=== PATIENT | female | born 2000 | race Caucasian/White ===

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

== ENCOUNTER → 2020-01-18 17:57 | Outpatient (CLI) | payer BC, SELFPAY ==
[2020-01-22 00:32] LABS: HPV Reflexed? NOT INDICATED
== END ==
PROVIDERS: Visit Provider Nurse Practitioner Women's Health
DX: Z12.4 Encounter for screening for malignant neoplasm of cervix (principal)
CPT/HCPCS: 88175; G0145

== ENCOUNTER → 2022-06-18 | Outpatient (CLI) | payer BC, SELFPAY ==
--- NOTE | 2022-06-18 16:55 | US_ITS ---
INDICATION: KIDNEY STONES EXAMINATION: US Kidney(s) complete (eg, kidneys and bladder) TECHNIQUE: Wall scale and color doppler images were obtained of the kidneys. COMPARISON: None. FINDINGS: RIGHT KIDNEY: Measures 10 cm in length.. There is no hydronephrosis. There is a 5 mm stone in the superior pole. No focal solid mass or perinephric collection is demonstrated. LEFT KIDNEY: Measures 10.5 cm in length.. There is no hydronephrosis. There is a 4 mm stone in the midpole No focal solid mass or perinephric collection is demonstrated. URINARY BLADDER: No acute abnormality. US/Kidney and Bladder IMPRESSION: Bilateral nonobstructing renal calculi as described above. No hydronephrosis. Electronically Signed: Fermin Ward MD at 23:40 EDT ,
== END | disposition home or self-care (01) ==
LOC: US 16:54
DX: N20.0 Calculus of kidney (principal)
CPT/HCPCS: 76770

== ENCOUNTER → 2022-09-06 | Outpatient (CLI) | payer BC, SELFPAY ==
[2022-09-06 11:01] LABS: Bacteria 0 SEEN /hpf (None Seen); Mucous, Urine 0 SEEN /hpf (<or=2+); Red Blood Cells-Urine 0 SEEN /hpf (0-5)
[2022-09-06 11:33] LABS: Color, Urine Yellow (Yellow); Glucose, Dipstick Normal (Normal); Ketone-Dipstick Negative (Negative); Leukocyte Esterase-Dipstick 25 /ul (Negative); Nitrite-Dipstick Negative (Negative); Occult Blood-Urine Negative /ul (Negative); Protein-Dipstick Negative (Negative); Urine Bilirubin Dipstick Negative (Negative); Urine Clarity Clear (Clear); Urine Urobilinogen Normal (Normal)
[2022-09-06 12:16] LABS: Squamous Epithelial Cells - UA 5-10 SEEN /hpf (5-10); White Blood Cells 0-5 SEEN /hpf (0-5)
== END | disposition home or self-care (01) ==
LOC: LABSPEC 10:49
PROVIDERS: Referring Provider Physician Assistant; Visit Provider Physician Assistant
DX: R10.9 Unspecified abdominal pain (principal)
CPT/HCPCS: 81001; 87086; 87088

== ENCOUNTER → 2023-01-10 | Outpatient (CLI) | payer BC, SELFPAY ==
[2023-01-10 18:31] LABS: Bacteria 0 SEEN /hpf (None Seen); Mucous, Urine 0 SEEN /hpf (<or=2+); Red Blood Cells-Urine 0 SEEN /hpf (0-5); White Blood Cells 0 SEEN /hpf (0-5)
[2023-01-10 18:40] LABS: Color, Urine Amber (Yellow); Glucose, Dipstick Normal (Normal); Ketone-Dipstick Negative (Negative); Leukocyte Esterase-Dipstick Negative /ul (Negative); Nitrite-Dipstick Positive (Negative); Occult Blood-Urine 10 /ul (Negative); Protein-Dipstick Negative (Negative); Specific Gravity, Urine 1.015 (1.002-1.030); Urine Clarity Clear (Clear); Urine Urobilinogen 8 mg/dl (Normal)
[2023-01-10 19:02] LABS: Urine Bilirubin Dipstick 3 mg/dL (Negative)
[2023-01-10 19:14] LABS: Squamous Epithelial Cells - UA 0-5 SEEN /hpf (5-10)
== END | disposition home or self-care (01) ==
PROVIDERS: Referring Provider Physician Assistant; Visit Provider Physician Assistant
DX: R35.0 Frequency of micturition (principal)
CPT/HCPCS: 81001; 87086

== ENCOUNTER 2023-01-12 05:46 | Emergency (ER) | payer BC, SELFPAY ==
[2023-01-12 05:47] VITALS: BP 123/91; PULSE 99; RESP 18; TEMP 36.4; O2SAT 99; BMI 38.0
--- NOTE | 2023-01-12 06:06 | EDS_ITS ---
HPI History of Present Illness Chief Complaint: General Illness Informant: patient Onset/Context/Timing Onset: Weeks (3) Context: Gradual Onset Timing: Continuous Quality: Sore, thick Location: Throat Worsened by: Nothing Relieved by: Tylenol Narrative Narrative: Patient presents with sore throat, eye drainage, and fevers that have been getting worse over the past 3 weeks. Patient states she was recently diagnosed with a urinary tract infection and is on Macrobid for this. Patient states her throat felt thick and was having difficulty swallowing this morning. Patient states it also feels sore. Patient states Tylenol has been helping with it. Patient states nothing makes it worse. Patient denies any difficulty swallowing. Patient admits to a mild cough but denies any sputum production. Patient denies any nausea or vomiting. PFSH PFS Medical History Hidradenitis Urinary tract infection Home Medications nitrofurantoin monohydrate/macrocrystals 100 mg capsule (Macrobid) 100 mg PO Q12H 5 days #10 caps 01/10/23 [Rx Last Taken Unknown] brompheniramine maleate 2 mg/5 mL oral elixir 5 mg PO DAILY 01/12/23 [History Last Taken Unknown] gentamicin 0.3 % eye drops 1 drp EACH EYE Q4H #5 mL 01/12/23 [Rx Last Taken Unknown] Allergy/AdvReac Type Severity Reaction Status Date / Time amoxicillin [From Augmentin] Allergy Other Verified 01/12/23 05:51 bee venom protein (honey bee) Allergy Hives Verified 01/12/23 05:51 clavulanic acid Allergy Other Verified 01/12/23 05:51 [From Augmentin] hydromorphone [From Dilaudid] AdvReac Other Verified 01/12/23 05:51 Surgical History History of tonsillectomy History of wisdom tooth extraction, class II edentulism Social History Smoking Status: Never smoker alcohol intake: never substance use type: does not use caffeine: Yes what type of physical activity do you participate in: walking seatbelt use: always do you feel safe at home: Yes 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 Constitutional Constitutional ED: Reports fever(s); Denies chills Eyes Eyes: Reports discharge from eye(s) and erythema; Denies blurry vision or change in vision ENT ENT ED: Reports discharge from eye(s) and sore throat; Denies rhinorrhea Cardiovascular Cardiovascular: Denies chest pain or palpitations Respiratory/Chest Respiratory/Chest: Reports cough; Denies dyspnea Gastrointestinal Gastrointestinal: Denies nausea or vomiting Genitourinary Genitourinary ED: Denies dysuria or hematuria Musculoskeletal Musculoskeletal: Denies back pain or neck pain Integumentary Denies abscess or rash Neurologic Neurologic: Denies headache(s) or weakness Allergic/Immunologic Allergic/Immunologic ED: Denies mouth swelling or urticaria EXAM Physical Exam Const Vital Signs: 01/12/23 05:47 01/12/23 05:53 Temperature 97.6 F L Temperature Source Oral Pulse Rate 99 Respiratory Rate 18 Respiratory Pattern Normal Blood Pressure 123/91 H Blood Pressure Mean 101 Pulse Ox 99 Oxygen Delivery Method Room Air Positive well nourished, well developed and obese General Appearance ED: well developed and NAD Nutritional Appearance: obese HEENT Reports moist mucous membranes HEENT Narrative: Oropharynx shows some mild erythema. There are no exudates noted. Eyes PERRL and EOMs intact bilaterally Eyes Narrative: Conjunctiva was injected bilaterally. There is mucousy, purulent drainage from the eyes bilaterally. There are no foreign bodies noted. Neck no lymphadenopathy, supple and no JVD Resp normal respiratory effort and clear to auscultation bilaterally Cardio regular rate, regular rhythm and no murmurs GI normal to inspection, nondistended, normoactive bowel sounds and non-tender Palpation: soft Extremity normal to inspection General Extremety ED: Negative for edema or tenderness General Extremity: Negative for edema Neuro oriented x3, CN's II-XII intact bilaterally and no sensory deficits noted Sensorium / Orientation: alert Motor Exam: strength 5/5 throughout Psych mental status grossly normal Skin no rashes or lesions noted MDM MDM MDM Narrative Medical decision making narrative: Differential diagnosis includes viral pharyngitis, conjunctivitis, viral upper respiratory infection, COVID infection, and influenza infection. COVID-19 rapid antigen will be obtained to assess for COVID infection. Influenza A and influenza B antigens will be obtained to assess for influenza infection. Rapid strep will be obtained to assess for strep pharyngitis. Lab Data Lab results narrative: COVID-19 rapid antigen was reviewed and was negative. Influenza A and influenza B antigens were reviewed and were negative. Rapid strep was reviewed and was negative. Treatment and Re-Evaluation :: Patient was advised of her findings. Patient was advised that this may be a viral upper respiratory infection. However, her conjunctivitis is purulent and mucousy in nature and could be bacterial etiology. Because of this, patient will be given a prescription for gentamicin ophthalmic drops. Patient was instructed to wash her hands anytime she touches her eye including putting eyedrops in. Patient was instructed to follow-up with her primary care physician in 5 to 7 days. Patient understood and was agreeable with the plan. All questions were answered. Discharge Plan Triage Chief Complaint: General Illness ED Provider: Maik Garcia Dx/Rx/DC Orders Clinical Impression: Conjunctivitis, Upper respiratory infection Instructions: ED Conjunctivitis, Bacterial Prescriptions: New gentamicin 0.3 % drops 1 drp EACH EYE Q4H Qty: 5 0RF No Action nitrofurantoin monohyd/m-cryst [Macrobid] 100 mg capsule 100 mg PO Q12H 5 Days Qty: 10 0RF Rx Instructions: must administer with a meal/food Bromphen 2 mg/5 mL Elixir 5 mg PO DAILY Primary Care Provider: Jocelyn Davis Referrals: Jocelyn Davis, [Primary Care Provider] - 5-7 Days Disposition Disposition: Home, Self Care
== END 2023-01-12 07:12 | disposition home or self-care (01) ==
PROVIDERS: Emergency Provider Emergency Medicine; Visit Provider Emergency Medicine
DX: J06.9 Acute upper respiratory infection, unspecified (principal); H10.9 Unspecified conjunctivitis
CPT/HCPCS: 87428; 87880; 99282

== ENCOUNTER 2023-01-23 20:22 | Emergency (ER) | payer BC, SELFPAY ==
[2023-01-23 20:23] VITALS: BP 131/79; PULSE 102; RESP 18; TEMP 36.4; O2SAT 97; BMI 37.6
[2023-01-23 20:56] LABS: Bacteria 0 SEEN /hpf (None Seen); Mucous, Urine 0 SEEN /hpf (<or=2+); Red Blood Cells-Urine 0 SEEN /hpf (0-5)
[2023-01-23 20:59] LABS: Color, Urine Yellow (Yellow); Glucose, Dipstick Normal (Normal); Ketone-Dipstick Negative (Negative); Leukocyte Esterase-Dipstick 25 /ul (Negative); Nitrite-Dipstick Positive (Negative); Occult Blood-Urine Negative /ul (Negative); Protein-Dipstick Negative (Negative); Specific Gravity, Urine 1.015 (1.002-1.030); Urine Bilirubin Dipstick Negative (Negative); Urine Clarity Sl. Cloudy (Clear); Urine Urobilinogen 4 mg/dl (Normal)
--- NOTE | 2023-01-23 21:06 | EX.ED.DYSGE1 ---
HPI History of Present Illness Chief Complaint: Flank Pain Informant: patient Onset/Context/Timing Onset: Days Context: Gradual Onset Narrative Narrative: Patient presents with urinary symptoms and increasing right flank pain. She was seen at [place] emergency room in the overnight hours last night. She states they were unable to get blood from her and she declined a CT scan. She was found have a urinary tract infection and was started on Keflex as well as Pyridium. She was also given Midvale for pain. She presents tonight due to increased right flank pain. Patient does have history of kidney stones but has never required surgical intervention. [facility] Medical History Asthma Depression GERD (gastroesophageal reflux disease) Hidradenitis Kidney stones Urinary tract infection Home Medications cephalexin 500 mg tablet 500 mg PO 4XD 01/23/23 [History Last Taken Unknown] fluticasone propionate 50 mcg/actuation nasal spray,suspension (Flonase Allergy Relief) 1 spray intranasal DAILY 01/23/23 [History Last Taken Unknown] hydrocodone-acetaminophen 5-325mg 5mg-325mg 1 tab PO Q6H PRN Pain 01/23/23 [History Last Taken Unknown] levocetirizine 5 mg tablet (Xyzal) 5 mg PO DAILY 01/23/23 [History Last Taken Unknown] ondansetron 4 mg disintegrating tablet 4 mg PO Q8H PRN PRN Nausea #10 tabs 01/23/23 [Rx Last Taken Unknown] phenazopyridine 200 mg tablet 200 mg PO TID 01/23/23 [History Last Taken Unknown] tamsulosin 0.4 mg capsule (Flomax) 0.4 mg PO DAILY #5 caps 01/23/23 [Rx Last Taken Unknown] Allergy/AdvReac Type Severity Reaction Status Date / Time amoxicillin [From Augmentin] Allergy Other Verified 01/23/23 20:26 bee venom protein (honey bee) Allergy Hives Verified 01/23/23 20:26 clavulanic acid Allergy Other Verified 01/23/23 20:26 [From Augmentin] hydromorphone [From Dilaudid] AdvReac Other Verified 01/23/23 20:26 Surgical History History of tonsillectomy History of wisdom tooth extraction, class II edentulism Social History Smoking Status: Never smoker alcohol intake: never substance use type: does not use caffeine: Yes what type of physical activity do you participate in: walking seatbelt use: always do you feel safe at home: Yes 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 ED Constitutional Constitutional ED: Denies chills or fever(s) Eyes Eyes: Denies change in vision or discharge from eye(s) ENT ENT ED: Denies discharge from eye(s), rhinorrhea or sore throat Cardiovascular Cardiovascular: Denies chest pain or palpitations Respiratory/Chest Respiratory/Chest: Denies cough or dyspnea Gastrointestinal Gastrointestinal: Reports abdominal pain; Denies diarrhea, nausea or vomiting Genitourinary Genitourinary ED: Reports dysuria and urinary frequency; Denies difficulty urinating Musculoskeletal Musculoskeletal: Reports back pain; Denies extremity pain Integumentary Denies Abrasions or rash Neurologic Neurologic: Denies headache(s) or weakness Psychiatric Psychiatric: Denies anxiety or depression Allergic/Immunologic Allergic/Immunologic ED: Denies lip swelling or urticaria EXAM Physical Exam Const Vital Signs: 01/23/23 20:23 01/23/23 20:32 Temperature 97.6 F L Temperature Source Temporal Pulse Rate 102 H Respiratory Rate 18 Respiratory Pattern Normal Blood Pressure 131/79 H Blood Pressure Mean 96 Pulse Ox 97 Oxygen Delivery Method Room Air Positive well nourished and well developed General Appearance ED: well developed HEENT Reports moist mucous membranes Eyes PERRL and EOMs intact bilaterally Neck no lymphadenopathy Chest Wall inspection of chest normal and palpation of chest normal Resp normal respiratory effort and clear to auscultation bilaterally Cardio regular rate and regular rhythm GI normal to inspection, nondistended, normoactive bowel sounds Extremity normal to inspection Neuro oriented x3 and no sensory deficits noted Motor Exam: strength 5/5 throughout Skin no rashes or lesions noted MDM MDM MDM Narrative Medical decision making narrative: Patient was initially given Toradol for pain along with IV fluids. Due to increased pain she was given morphine and Zofran. Labwork obtained to evaluate for leukocytosis, anemia, and electrolyte derangement. Urinalysis obtained to evaluate for infection/hematuria. Patient would like to avoid a CT scan if at all possible secondary to radiation and states that her urologist typically just as an abdominal x-ray. This was performed to evaluate for possible kidney stone. Lab Data Attestation: I reviewed the patient's lab results. Labs: Laboratory Results - last 24 hr 01/23/23 01/23/23 01/23/23 20:45 20:45 20:45 WBC 13.4 H RBC 4.79 Hgb 13.2 Hct 41.4 MCV 86.4 MCH 27.6 MCHC 31.9 L RDW Std Deviation 40.6 RDW Coeff of [place] 13.1 Plt Count 319 MPV 9.9 Immature Gran % (Auto) 0.600 Neut % (Auto) 64.2 Lymph % (Auto) 23.1 [place] % (Auto) 6.6 Eos % (Auto) 4.9 Baso % (Auto) 0.6 Absolute Neuts (auto) 8.6 H Absolute Lymphs (auto) 3.10 Nucleated RBC % 0 Sodium Potassium Chloride Carbon Dioxide Anion Gap BUN Creatinine Estim Creat Clear Calc Est GFR (MDRD) Af Amer Est GFR (MDRD) Non-Af BUN/Creatinine Ratio Glucose Calcium Serum , Qual NEGATIVE Urine Color Yellow Urine Clarity Sl. Cloudy Urine pH 6.0 Ur Specific [place] 1.015 Urine Protein Negative Urine Glucose (UA) Normal Urine Ketones Negative Urine Occult Blood Negative Urine Nitrite Positive H Urine Bilirubin Negative Urine Urobilinogen 4 H Ur Leukocyte Esterase 25 H Urine RBC 0 SEEN Urine WBC 0-5 SEEN Ur Squamous Epith Cells 0-5 SEEN Urine Bacteria 0 SEEN Urine Mucus 0 SEEN 01/23/23 20:45 WBC RBC Hgb Hct MCV MCH MCHC RDW Std Deviation RDW Coeff of [place] Plt Count MPV Immature Gran % (Auto) Neut % (Auto) Lymph % (Auto) [place] % (Auto) Eos % (Auto) Baso % (Auto) Absolute Neuts (auto) Absolute Lymphs (auto) Nucleated RBC % Sodium 140 Potassium 4.3 Chloride 108 H Carbon Dioxide 27.0 Anion Gap 5 BUN 14 Creatinine 1.09 H Estim Creat Clear Calc 99.13 Est GFR (MDRD) Af Amer 79 Est GFR (MDRD) Non-Af 66 BUN/Creatinine Ratio 12.8 Glucose 97 Calcium 8.9 Serum , Qual Urine Color Urine Clarity Urine pH Ur Specific [place] Urine Protein Urine Glucose (UA) Urine Ketones Urine Occult Blood Urine Nitrite Urine Bilirubin Urine Urobilinogen Ur Leukocyte Esterase Urine RBC Urine WBC Ur Squamous Epith Cells Urine Bacteria Urine Mucus Radiography Diagnostic Testing: Clinical Impression(s) from Imaging Studies KUB X-Ray 01/23/23 21:20 IMPRESSION: 3 mm calcification over the rightward pelvis may represent a distal ureteral calculus. Bilateral renal calculi. Electronically Signed: Harry Montalvo MD at 21:47 EDT , Treatment and Re-Evaluation :: CBC reveals a white count of 13.4 with normal differential. Chemistry studies unremarkable with a creatinine 1.09. test is negative. Urinalysis does reveal positive nitrites however 0 bacteria are noted with 0-5 white cells. Abdominal x-ray per my interpretation reveals increased stool on the right. It appears that there are at least 2 small kidney stones noted in the left kidney. Radiology interpretation is reviewed. They do see a 3 mm calcification in the right red pelvis which may represent a distal right ureteral calculus. On repeat evaluation patient resting more comfortably. Test results are discussed with her. She will continue the antibiotics that she was started on yesterday. She already has Midvale at home for pain. She will take ibuprofen 600 mg 3 times a day. I will add Zofran and Flomax. She has an appointment to see her urologist in [facility]. Return instructions given. Discharge Plan Triage Chief Complaint: Flank Pain ED Provider: Bonnie uL Dx/Rx/DC Orders Clinical Impression: Kidney stone Instructions: ED Kidney Stone w/ Colic Prescriptions: New ondansetron 4 mg tablet,disintegrating 4 mg PO Q8H PRN PRN (Reason: Nausea) Qty: 10 0RF tamsulosin [Flomax] 0.4 mg capsule 0.4 mg PO DAILY Qty: 5 0RF No Action hydrocodone-acetaminophen [[place]] 5-325 mg Tablet 1 tab PO Q6H PRN (Reason: Pain) phenazopyridine 200 mg Tablet 200 mg PO TID cephalexin 500 mg Tablet 500 mg PO 4XD fluticasone propionate [Flonase Allergy Relief] 50 mcg/actuation [place],Suspension 1 spray INTRANASAL DAILY Rx Instructions: administer into each nostril levocetirizine [Xyzal] 5 mg Tablet 5 mg PO DAILY Stand Alone Forms: ED Work / School Excuse Primary Care Provider: Jocelyn Davis Referrals: Jocelyn Davis, [Primary Care Provider] - Activity Restrictions/Additional Instructions: Follow-up with your urologist as scheduled. Disposition Disposition: Home, Self Care
[2023-01-23] MEDS: Ketorolac 30 MG/ML Syringe IV (21:07)
[2023-01-23 21:08] LABS: Internal QC Validated? YES +Cl - CLEAR BKGD
[2023-01-23] MEDS: 0.9% Normal Saline 1,000 ML 150 ML IV (21:08)
[2023-01-23 21:09] LABS: Pregnancy, Serum, hCG Quali. NEGATIVE Negative
[2023-01-23 21:13] LABS: Absolute Neutrophil Count 8.6 X10^3/uL (2.0-7.7); Basophil# 0.08 X10^3/uL; Basophil% 0.6 % (0-1); Eosinophil# 0.66 X10^3/uL; Eosinophils% 4.9 % (0-5); Hematocrit 41.4 % (37-47); Hemoglobin 13.2 g/dL (12.0-15.0); Lymphocyte % 23.1 % (19-41); Mean Corp Hgb Conc 31.9 g/dL (32-36); Mean Corpuscular Hgb 27.6 pg (27.0-32.0); Mean Corpuscular Volume 86.4 fL (81-99); Mean Platelet Vol. 9.9 fl (6.2-12.0); Monocyte# 0.89 X10^3/uL; Monocyte% 6.6 % (0-10); NRBC Flagged by Analyzer 0 % (0-5); Neutrophil # 8.63 X10^3/uL (2.7-7.7); Neutrophil % 64.2 % (47-70); Platelet Count 319 K/mm3 (150-450); RBC Distribution Width CV 13.1 % (11.6-14.6); RBC Distribution Width SD 40.6 fl (35.1-43.9); Red Blood Count 4.79 M/mm3 (4.2-5.4); White Blood Count 13.4 K/mm3 (4.4-11.0)
[2023-01-23 21:18] LABS: Squamous Epithelial Cells - UA 0-5 SEEN /hpf (5-10); White Blood Cells 0-5 SEEN /hpf (0-5)
--- NOTE | 2023-01-23 21:20 | RAD_ITS ---
INDICATION: right flank pain EXAMINATION/TECHNIQUE: X-RAY - XR Abdomen 1 View COMPARISON: 06/18/2022 ultrasound FINDINGS: BOWEL GAS PATTERN: Non-obstructive. No bowel or stomach distention. FREE AIR: Not assessed on a single supine view. ORGANOMEGALY: Not seen. CALCIFICATIONS: Several calcifications project over the right kidney. A 3 mm calcification projects over the rightward pelvis. 2 small calcifications project over the expected location of the left kidney, the largest of which measures 3 mm LOWER CHEST: No acute abnormal finding. BONES AND SOFT TISSUES: No acute abnormal finding. RAD/Abdomen Single View IMPRESSION: 3 mm calcification over the rightward pelvis may represent a distal ureteral calculus. Bilateral renal calculi. Electronically Signed: Harry Montalvo MD at 21:47 EDT ,
[2023-01-23 21:22] LABS: Anion Gap 5 (5-15); BUN 14 mg/dL (7-18); BUN/Creat Ratio 12.8 RATIO (10-20); Calcium,Total 8.9 mg/dL (8.5-10.1); Chloride 108 mmol/L (98-107); Creatinine, Serum 1.09 mg/dL (0.55-1.02); EST Glomerular Filtration Rate 66 mL/min (>60); Est Glom Filt Rate - Afr Amer 79 mL/min (>60); Estimated Creatinine Clearance 99.13 ml/min; Glucose 97 mg/dL (74-106); Potassium 4.3 mmol/L (3.5-5.1); Sodium Level 140 mmol/L (136-145)
[2023-01-23] MEDS: Ondansetron 4 MG/2 ML Vial IV (21:40)
[2023-01-23] MEDS: Morphine 4 MG/ML Syringe IV (21:40)
[2023-01-23 23:03] VITALS: BP 128/70; PULSE 72; RESP 16; O2SAT 98
== END 2023-01-23 23:05 | disposition home or self-care (01) ==
PROVIDERS: Emergency Provider Emergency Medicine; Visit Provider Emergency Medicine
DX: N20.0 Calculus of kidney (principal); J45.909 Unspecified asthma, uncomplicated; Z79.52 Long term (current) use of systemic steroids
CPT/HCPCS: 74018; 80048; 81001; 84703; 85025; 96361; 96374; 96375; 99284; J7030; J2405

== ENCOUNTER → 2023-04-11 | Outpatient (CLI) | payer BC, SELFPAY ==
[2023-04-19 10:05] LABS: HPV Reflexed? NOT INDICATED
== END | disposition home or self-care (01) ==
LOC: LABSPEC 16:24
PROVIDERS: Nurse Practitioner Women's Health; Referring Provider Obstetrics & Gynecology; Visit Provider Obstetrics & Gynecology
DX: Z12.4 Encounter for screening for malignant neoplasm of cervix (principal); N89.8 Other specified noninflammatory disorders of vagina
CPT/HCPCS: 87070; 87205; 88175; G0145

== ENCOUNTER 2023-05-14 12:10 | Emergency (ER) | payer BC, SELFPAY ==
[2023-05-14 12:11] VITALS: BP 126/90; PULSE 83; RESP 14; TEMP 36.2; O2SAT 100; BMI 35.6
--- NOTE | 2023-05-14 12:32 | EDS_ITS ---
HPI HPI - GI History of Present Illness Chief Complaint: Abd Pain Detail of Chief Complaint: Pain in abdomen Informant: patient, parent, spouse/S.O. and family Abdominal Pain/Flank Pain Current Severity: 04/11 Narrative Narrative: Patient presents with lower abdominal pain that started around 9:30 AM. Patient states the pain came on gradually. She started her menstrual period yesterday and does typically experience significant cramping with that. Patient took Advil but not having much relief. She describes pain mostly on her left lower abdomen but does have some discomfort across her back and some mild discomfort in the right side of her abdomen. She does have history of kidney stones. Patient has history of UTIs. Patient does not think this is a kidney stone as it does not feel like that. She had nausea but no vomiting. States that she tries to avoid CAT scans because she has had multiple CTs in the past because of her kidney stones. Her last CT was about a year and a half ago. In the past they have done ultrasounds and plain x-rays to evaluate for kidney stone. Prior similar symptoms: Yes PFSH PFSH Medical History Asthma Depression GERD (gastroesophageal reflux disease) Hidradenitis Kidney stones Urinary tract infection Home Medications levocetirizine 5 mg tablet (Xyzal) 5 mg PO DAILY 01/23/23 [History Last Taken Unknown] Allergy/AdvReac Type Severity Reaction Status Date / Time amoxicillin [From Augmentin] Allergy Other Verified 05/14/23 12:13 bee venom protein (honey bee) Allergy Hives Verified 05/14/23 12:13 clavulanic acid Allergy Other Verified 05/14/23 12:13 [From Augmentin] hydromorphone [From Dilaudid] AdvReac Other Verified 05/14/23 12:13 Family History no significant family his Surgical History History of tonsillectomy History of wisdom tooth extraction, class II edentulism Social History household members: spouse Smoking Status: Never smoker alcohol intake: never substance use type: does not use caffeine: Yes what type of physical activity do you participate in: walking seatbelt use: always do you feel safe at home: Yes additional social history: [employer] at [employer] [facility] ROS ROS ED Review of Systems ROS Unobtainable: other Constitutional Constitutional ED: Reports lethargy; Denies chills, fever(s), sweats or weight loss Eyes Eyes: Denies blurry vision, change in vision or diplopia ENT ENT ED: Denies rhinorrhea or sore throat Cardiovascular Cardiovascular: Denies chest pain, orthopnea or racing heartbeat Respiratory/Chest Respiratory/Chest: Denies cough, dyspnea, dyspnea on exertion, orthopnea or sputum Gastrointestinal Gastrointestinal: Reports abdominal pain and nausea; Denies diarrhea or vomiting Genitourinary Genitourinary ED: Denies dysuria, hematuria or urinary frequency Musculoskeletal Musculoskeletal: Reports back pain; Denies arthralgias, myalgias or neck pain Integumentary Denies abscess, Abrasions or rash Neurologic Neurologic: Denies headache(s) or weakness Psychiatric Psychiatric: Denies anxiety, depression or suicidal thoughts Endocrine Endocrinology: Denies polydipsia, polyphagia or polyuria Hematologic/Lymphatic Hematologic/Lymphatic: Denies easy bleeding, easy bruising or lymphadenopathy Allergic/Immunologic Allergic/Immunologic ED: Denies mouth swelling, tongue swelling or urticaria EXAM Physical Exam Const Vital Signs: 05/14/23 12:11 05/14/23 14:08 Temperature 97.1 F L Temperature Source Temporal Pulse Rate 83 Respiratory Rate 14 16 Blood Pressure 126/90 H Blood Pressure Mean 102 Pulse Ox 100 Oxygen Delivery Method Room Air Positive well nourished and well developed General Appearance ED: well developed and NAD HEENT Reports TM's clear and moist mucous membranes normocephalic and atraumatic; Negative for trauma or tenderness Tympanic Membrane ED: Yes TM's clear Eyes PERRL and EOMs intact bilaterally General Eye ED: Negative for pale conjunctiva or scleral icterus Neck no lymphadenopathy, supple and no JVD General: Negative for tenderness Chest Wall inspection of chest normal and palpation of chest normal Chest: Negative for tenderness Resp normal respiratory effort and clear to auscultation bilaterally Effort and Inspection: Negative for respiratory distress or pain with movement Auscultation: Negative for rhonchi, wheezes or diminished lung sounds Cardio regular rate, regular rhythm, S1 normal heart sound, S2 normal heart sound and no murmurs Cardio Narrative: Significant tenderness on exam. No rebound, rigidity, or peritoneal signs. No mass palpated. No CVA tenderness. Peripheral Pulses: pulses 2+ throughout GI normal to inspection, nondistended, normoactive bowel sounds, soft to palpation, non-tender, non-distended and no masses Back/Spine no CVA tenderness and no thoracic nor lumbar tenderness Extremity normal to inspection General Extremety ED: Negative for edema General Extremity: Negative for edema Neuro oriented x3, CN's II-XII intact bilaterally, no sensory deficits noted and gait normal Sensorium / Orientation: awake, alert, oriented to person, oriented to place and oriented to time Motor Exam: strength 5/5 throughout and strength abnormal Psych mental status grossly normal Skin no rashes or lesions noted and no wounds MDM MDM MDM Narrative Medical decision making narrative: Ruperttz with abdominal pain that she believes is related to her menstrual period that started yesterday. Patient also with prior history of kidney stones but tells me this feels different. Patient took Advil at home but was not get much relief so she comes in for evaluation. She does not think she is . She typically does have painful menstrual periods. IV line established on arrival. Patient was medicated with Toradol and she had good pain relief with that. CBC with differential obtained showed white count of 9.8 with hemoglobin of 13.4 and platelet count of 278. Chemistries unremarkable. Lactate normal at 1.8 and LFTs normal. hCG was negative. Urinalysis showed blood but no evidence of infection and she is on her menstrual period. Currently pain mostly resolved. She looks well. I do not feel any imaging is indicated. Patient comfortable with plan to follow-up with primary care physician and her [employer]. Lab Data Attestation: I reviewed the patient's lab results. Labs: Laboratory Results - last 24 hr 05/14/23 05/14/23 12:55 13:03 WBC 9.8 RBC 4.83 Hgb 13.4 Hct 42.2 MCV 87.4 MCH 27.7 MCHC 31.8 L RDW Std Deviation 42.2 RDW Coeff of [place] 13.3 Plt Count 278 MPV 10.1 Immature Gran % (Auto) 0.400 Neut % (Auto) 69.9 Lymph % (Auto) 18.7 L [place] % (Auto) 6.5 Eos % (Auto) 4.0 Baso % (Auto) 0.5 Absolute Neuts (auto) 6.9 Absolute Lymphs (auto) 1.83 Nucleated RBC % 0 Sodium 140 Potassium 4.0 Chloride 110 H Carbon Dioxide 26.0 Anion Gap 4 L BUN 15 Creatinine 0.92 Estim Creat Clear Calc 111.41 Est GFR (MDRD) Af Amer 97 Est GFR (MDRD) Non-Af 80 BUN/Creatinine Ratio 16.4 Glucose 113 H Lactic Acid 1.8 Calcium 9.0 Total Bilirubin 0.30 AST 13 L ALT 23 Alkaline Phosphatase 99 Total Protein 7.5 Albumin 3.5 Globulin 4.0 Albumin/Globulin Ratio 0.9 Serum , Qual NEGATIVE Urine Color GUS Urine Clarity Sl. Cloudy Urine pH 6.0 Ur Specific [place] 1.020 Urine Protein 100 H Urine Glucose (UA) Normal Urine Ketones Negative Urine Occult Blood 250 H Urine Nitrite Negative Urine Bilirubin Negative Urine Urobilinogen Normal Ur Leukocyte Esterase 100 H Urine RBC > 100 SEEN Urine WBC 0 SEEN Ur Squamous Epith Cells 0-5 SEEN Urine Bacteria 0 SEEN Urine Mucus 0 SEEN Discharge Plan Triage Chief Complaint: Abd Pain ED Provider: Jose De Jesus Ramsey Dx/Rx/DC Orders Clinical Impression: Dysmenorrhea Instructions: ED Abdominal Pain Unkn Cause Fem, ED MENSTRUAL CRAMPING Prescriptions: No Action levocetirizine [Xyzal] 5 mg Tablet 5 mg PO DAILY Primary Care Provider: Jocelyn Davis Referrals: Jocelyn Davis DO [Primary Care Provider] - 3-5 Days Mariama Renae MD [Med Staff - Active Staff] - 3-5 Days Disposition Disposition: Home, Self Care Discharge Date/Time: 05/14/23 14:09
[2023-05-14] MEDS: Ketorolac 30 MG/ML Syringe IV (13:00)
[2023-05-14] MEDS: 0.9% Normal Saline (1000mL) 1,000 ML 125 ML IV (13:01)
[2023-05-14 13:07] LABS: Absolute Lymphocyte Count 1.83 X10^3/uL (0.83-4.51); Absolute Neutrophil Count 6.9 X10^3/uL (2.0-7.7); Basophil# 0.05 X10^3/uL; Basophil% 0.5 % (0-1); Eosinophil# 0.39 X10^3/uL; Hematocrit 42.2 % (37-47); Hemoglobin 13.4 g/dL (12.0-15.0); Lymphocyte # 1.83 X10^3/ul (0.83-4.51); Lymphocyte % 18.7 % (19-41); Mean Corp Hgb Conc 31.8 g/dL (32-36); Mean Corpuscular Hgb 27.7 pg (27.0-32.0); Mean Corpuscular Volume 87.4 fL (81-99); Mean Platelet Vol. 10.1 fl (6.2-12.0); Monocyte# 0.64 X10^3/uL; Monocyte% 6.5 % (0-10); NRBC Flagged by Analyzer 0 % (0-5); Neutrophil # 6.86 X10^3/uL (2.7-7.7); Neutrophil % 69.9 % (47-70); Platelet Count 278 K/mm3 (150-450); RBC Distribution Width CV 13.3 % (11.6-14.6); RBC Distribution Width SD 42.2 fl (35.1-43.9); Red Blood Count 4.83 M/mm3 (4.2-5.4); White Blood Count 9.8 K/mm3 (4.4-11.0)
[2023-05-14 13:07] LABS: Bacteria 0 SEEN /hpf (None Seen); Mucous, Urine 0 SEEN /hpf (<or=2+); White Blood Cells 0 SEEN /hpf (0-5)
[2023-05-14 13:11] LABS: Glucose, Dipstick Normal (Normal); Ketone-Dipstick Negative (Negative); Leukocyte Esterase-Dipstick 100 /ul (Negative); Nitrite-Dipstick Negative (Negative); Occult Blood-Urine 250 /ul (Negative); Protein-Dipstick 100 mg/dl (Negative); Urine Bilirubin Dipstick Negative (Negative); Urine Clarity Sl. Cloudy (Clear); Urine Urobilinogen Normal (Normal)
[2023-05-14 13:14] LABS: Internal QC Validated? YES +Cl - CLEAR BKGD; Pregnancy, Serum, hCG Quali. NEGATIVE Negative
[2023-05-14 13:19] LABS: Color, Urine AMBER (Yellow); Red Blood Cells-Urine > 100 SEEN /hpf (0-5)
[2023-05-14 13:20] LABS: Squamous Epithelial Cells - UA 0-5 SEEN /hpf (5-10)
[2023-05-14 13:24] LABS: ALB/GLOB Ratio 0.9 RATIO (0.9-2.4); AST(SGOT) 13 U/L (15-37); Alanine Aminotransfer ALT/SGPT 23 U/L (13-56); Albumin, Serum 3.5 g/dL (3.2-5.0); Alkaline Phosphatase 99 U/L (45-117); Anion Gap 4 (5-15); BUN 15 mg/dL (7-18); BUN/Creat Ratio 16.4 RATIO (10-20); Chloride 110 mmol/L (98-107); Creatinine, Serum 0.92 mg/dL (0.55-1.02); EST Glomerular Filtration Rate 80 mL/min (>60); Est Glom Filt Rate - Afr Amer 97 mL/min (>60); Estimated Creatinine Clearance 111.41 ml/min; Glucose 113 mg/dL (74-106); Protein, Total 7.5 g/dL (6.4-8.2); Sodium Level 140 mmol/L (136-145)
[2023-05-14 13:32] LABS: Lactic Acid 1.8 mmol/L (0.4-1.9)
[2023-05-14 14:08] VITALS: RESP 16
== END 2023-05-14 14:09 | disposition home or self-care (01) ==
PROVIDERS: Emergency Provider Emergency Medicine; Visit Provider Emergency Medicine
DX: N94.6 Dysmenorrhea, unspecified (principal)
CPT/HCPCS: 80053; 81001; 83605; 84703; 85025; 96361; 96374; 99284

== ENCOUNTER → 2023-08-30 | Outpatient (CLI) | payer BC, SELFPAY ==
--- NOTE | 2023-08-30 16:36 | US_ITS ---
STUDY: ULTRASOUND TRANSVAGINAL CLINICAL: Female, 23 years old. dysmenorrhea TECHNIQUE: Transvaginal COMPARISON: None. FINDINGS: Normal uterine size measuring 7.5 x 3.7 x 2.6 cm in maximal craniocaudal dimension. Round hypoechoic mass in the anterior uterine body measures 8 mm on image 82 of series #1-2. Normal endometrial thickness measuring 6 mm. There are no endometrial masses, and there is no fluid in the endometrial cavity. There are nabothian cysts. Normal right ovary, measuring 2.8 x 2.1 x 2.2 cm. There are multiple follicles without a dominant cyst. Normal left ovary, measuring 2.8 x 2.1 x 2.2 cm. There are multiple follicles without a dominant cyst. There is no free fluid in the pelvis. US/Transvaginal Non- IMPRESSION: 1. Small (subcentimeter) subserosal anterior uterine fibroid. 2. No endometrial masses. Electronically Signed: Alvarez Ford MD (Brooks) at 20:10 EST ,
--- OUTSIDE RECORDS SUMMARY | 2023-08-30 20:39 | XMS RPT_ITS | CCD ---
Author Name Unknown Address [address] [place] [address] Organization [facility] Care Team Providers Care Nurse Quality Name Role Phone VALERIE VAIL Attending Unavailable IMCA Referring Unavailable IMCA Primary Care Unavailable IMJUAN Primary Care Unavailable RYLIE REGAN Attending Unavailable JIAN MCFARLAND, DR NAIK Primary Care Physician [phone] Gumaro Villar DO Primary Care Provider DR GUMARO VILLAR DO Primary Care Physician [phone] Gumaro Villar DO Primary Care Provider BARBY GUERIN Attending Unavailable GUMARO VILLAR Primary Care Unavailable Gumaro Villar DO Primary Care Provider [phone] Tank Escobar MD Unavailable Gumaro Villar DO Primary Care Provider [phone] Tank Escboar MD Unavailable STEVE NOWAK Primary Care Physi [facility] GUMARO VILLAR Primary Care Unavailable DAT LOGAN Attending Unavailable ROBINSON LOPES Attending Unavailable GUMARO VILLAR Primary Care Unavailable GUMARO VILLAR Primary Care Unavailable ABBY MUÑOZ Attending Unavailable TANK ESCOBAR Attending Unavailable GUMARO VILLAR Primary Care Unavailable TANK ESCOBAR Attending Unavailable GUMARO VILLAR Primary Care Unavailable TANK ESCOBAR Referring Unavailable GUMARO VILLAR Primary Care Unavailable TANK ESCOBAR Attending Unavailable TANK ESCOBAR Referring Unavailable GUMARO VILLAR Primary Care Unavailable STEVE NOWAK Primary Care Un available JAZ GARCIA, TUCKER Yadav Attending Margarita GUARDADO APRN-MAIL CLERK, STEVE A Primary Care Un available TUCKER KEVIN Attending Margarita CURRIE APRN-MAIL CLERK, OMAR Attending Chaya GUARDADO APRN-MAIL CLERK, STEVE A Primary Care Un available SAKSHI ROSSI Attending Unavailable DEBBY COLEMANN-MAIL CLERK, STEVE A Primary Care Un available Allergies Allergy Classification Reported Allergen(s) Allergy Type Date of Onset Reaction(s) Facility (5 sources) Bee; Translations: [BEES] Propensity to adverse reactions (disorder) 3 Anaphylaxis [facility] Repository (5 sources) Hazelnut; Translations: [HAZELNUT] Propensity to adverse reactions (disorder) 8 Swelling [facility] Repository (5 sources) Lactase; Translations: [LACTASE] Drug Allergy 3 Vomiting [facility] Repository (20 sources) AMOXICILLIN-POT CLAVULANATE; Translations: [AMOXICILLIN-PO T CLAVULANATE] Propensity to adverse reactions (disorder) 8 Unknown, Anaphylaxis [facility] Repository (7 sources) Amoxicillin / Clavulanate; Translations: [amoxicillin-cl avulanate] Drug Allergy swollen tongue, edema, TONGUE SWELLING [facility] (7 sources) Bee/Wasp/Ant venom Allergy to substance Swelling (morphologic abnormality) [facility] (7 sources) Cat Allergy to substance sweling, itching [facility] (7 sources) Dog Allergy to substance Unknown [facility] (20 sources) HYDROmorphone; Translations: [hydromorphone] Drug Allergy 9 Syncope (disorder) [facility] (5 sources) Hazelnut Food allergy tingly tongue [facility] (5 sources) Walnuts Food allergy tingly tongue [facility] (1 source) Cat Hair Extract Propensity to adverse reactions 9 [facility] (15 sources) Corylus Allergy to substance 8 Swelling [facility] (14 sources) Cat Hair Extract Drug Allergy 9 [facility] Medications Current Medications Medication Drug Class(es) Dates Sig (Normalized) Sig (Original) albuterol MDI (90 mcg/inh) CFC free inhalation aerosol (7 sources) Start: 08-29-2021 take 2 puff(s) by inhalation every four hours as needed for wheezing albuterol MDI (90 mcg/inh) CFC free inhalation aerosol 2 puff(s), Inhalation, q4h, PRN as needed for wheezing, # 18 gram(s), 0 Refill(s), Pharmacy: [facility]/pharmacy #[id number], Cough History of asthma, 144.8, cm, 08/09/21 14:45:00 EST, Height, kg, 08/29/21 13:43:00 EST, Dosing Weight Start Date: 08/29/21 Status: Ordered Fara-Sallisaw Plus Cold Formula (1 source) Start: 08-29-2021 Fara-S[place]is[place] Plus Cold Formula See Instructions, Oral q4h, 0 Refill(s) Start Date: 08/29/21 Status: Ordered busPIRone hydrochloride 5 mg oral tablet (1 source) Start: 05-11-2022 End: 08-09-2022 busPIRone 5 mg oral tablet Dose : 5 mg = 1 tab(s), Oral, BID, # 180 tab(s), 0 Refill(s), Pharmacy: [facility]/pharmacy #[id number], Well adult exam Fatigue, 144.8, cm, 05/11/22 16:55:00 EDT, Height Start Date: 05/11/22 Stop Date: 08/09/22 Status: Ordered cephalexin 500 mg oral capsule (17 sources) Cephalosporin Antibacterial Start: 01-23-2023 End: 06-03-2023 cephalexin (Keflex) 500 MG capsule Completed/Discontinued Medications Medication Drug Class(es) Dates Sig (Normalized) Sig (Original) acetaminophen 325 mg oral tablet (2 sources) Start: 05-31-2023 End: 05-31-2023 acetaminophen (Tylenol) tablet 650 mg aluminum chloride 200 mg/ml topical solution (3 sources) Start: 06-02-2014 aluminum chloride (DRYSOL) 20 % external solution Apply 1 application to affected area daily at bedtime. 1 Bottle 12 06/02/2014 Active Problems Active Problems Problem Classification Problem Date Documented Da te Episodic/Chronic Abdominal pain (7 sources) Abdominal pain; Translations: [Unspecified abdominal pain] Onset: 11-22-2021 Episodic Anxiety disorders (20 sources) Generalized anxiety disorder; Translations: [Anxiety] Onset: 06-08-2021 01-03-2021 Chronic Calculus of urinary tract (20 sources) Kidney stone; Translations: [Calculus of kidney] Onset: 08-11-2019 09-25-2017 Episodic Disorders of lipid metabolism (7 sources) Hyperlipidemia 01-03-2021 Chronic Disorders of teeth and jaw (7 sources) Loss of teeth due to extraction 11-27-2015 Chronic Headache; including migraine (7 sources) Migraine 11-27-2015 Chronic Headache; including migraine (4 sources) Frequent headache 05-11-2022 Episodic Immunizations and screening for infectious disease (2 sources) Anti-nuclear factor positive; Translations: [Other specified abnormal immunological findings in serum] Onset: 10-04-2022 Episodic Menstrual disorders (13 sources) Dysmenorrhea; Translations: [Menorrhagia] Onset: 12-11-2012 11-27-2015 Chronic Noninfectious gastroenteritis (6 sources) Gastroenteritis 11-22-2021 Episodic Nutritional deficiencies (7 sources) Vitamin D deficiency 01-03-2021 Chronic Other gastrointestinal disorders (1 source) Diarrhea; Translations: [Diarrhea, unspecified] Onset: 11-22-2021 Episodic Other inflammatory condition of skin (5 sources) Pruritus of vagina 02-13-2022 Episodic Other nutritional; endocrine; and metabolic disorders (7 sources) Hypomagnesemia 01-03-2021 Chronic Other nutritional; endocrine; and metabolic disorders (7 sources) Obesity 02-19-2020 Chronic Other skin disorders (3 sources) 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 Episodic Other skin disorders (2 sources) Sebaceous cyst; Translations: [Sebaceous cyst] Onset: 08-22-2023 Episodic Residual codes; unclassified (7 sources) Immunization due 02-19-2020 Episodic Residual codes; unclassified (4 sources) FH: Cardiovascular disease 05-11-2022 Episodic Spondylosis; intervertebral disc disorders; other back problems (7 sources) Backache 01-03-2021 Episodic Unclassified (7 sources) Exposure to 2019 novel coronavirus 08-29-2021 Unclassified (7 sources) Patient encounter status 02-19-2020 Unclassified (2 sources) Other Onset: 06-04-2023 Urinary tract infections (8 sources) Urinary tract infectious disease; Translations: [Urinary tract infection, site not specified] Onset: 10-17-2017 10-17-2017 Episodic Urinary tract infections (2 sources) Urinary tract infections Onset: 10-17-2017 Past or Other Problems Problem Classification Problem Date Documented Da te Episodic/Chronic Genitourinary symptoms and ill-defined conditions (20 sources) Dysuria; Translations: [Dysuria] Onset: 06-08-2021 Episodic Results Test Name Value Interpretation Reference Range Facil ity Vital Signs Date Time Vital Sign Value Performing Clinician Faci lity 06-04-2023 08:09-0400 Body height 144.8 cm Robinson [employer] Work Phone: [facility] 06-04-2023 08:09-0400 Body mass index (BMI) [Ratio] 35.27 kg/m2 [employer] Work Phone: [facility] 06-04-2023 08:09-0400 Body weight 73.94 kg [employer] Work Phone: [facility] 06-04-2023 08:09-0400 Diastolic blood pressure 85 mm[Hg] Robinson [employer] Work Phone: [facility] 06-04-2023 08:09-0400 Heart rate 101 /min [employer] Work Phone: [facility] 06-04-2023 08:09-0400 Systolic blood pressure 125 mm[Hg] Robinson Juanito RENT AND MISCELLANEOUS REMITTANCE CLERK [employer] Work Phone: [facility] 05-31-2023 03:13-0400 Diastolic blood pressure 71 mm[Hg] Dat Logan DO Work Phone: [facility] 05-31-2023 03:13-0400 Heart rate 90 /min Dat Logan DO Work Phone: [facility] 05-31-2023 03:13-0400 Respiratory rate 16 /min Dat Logan DO Work Phone: [facility] 05-31-2023 03:13-0400 SaO2% (BldA) [Mass fraction] 98 % Dat Logan DO Work Phone: [facility] 05-31-2023 03:13-0400 Systolic blood pressure 120 mm[Hg] Dat Logan DO Work Phone: [facility] 05-30-2023 23:03-0400 Body temperature 98.8 [degF] Dat Logan DO Work Phone: [facility] 05-30-2023 20:38-0400 Body height 144.8 cm Dat Logan DO Work Phone: [facility] 05-30-2023 20:38-0400 Body mass index (BMI) [Ratio] 35.06 kg/m2 Dat Logan DO Work Phone: [facility] 05-30-2023 20:38-0400 Body weight 73.48 kg Dat Logan DO Work Phone: [facility] 02-28-2023 16:53-0400 Diastolic blood pressure 81 mm[Hg] Abby Muñoz DO Work Phone: [facility] 02-28-2023 16:53-0400 Heart rate 103 /min Abby Muñoz DO Work Phone: [facility] 02-28-2023 16:53-0400 Respiratory rate 20 /min Abby Muñoz DO Work Phone: [facility] 02-28-2023 16:53-0400 SaO2% (BldA) [Mass fraction] 97 % Abby Muñoz DO Work Phone: [facility] 02-28-2023 16:53-0400 Systolic blood pressure 120 mm[Hg] Abby Skiffey DO Work Phone: [facility] 02-28-2023 10:30-0400 Body mass index (BMI) [Ratio] 32.32 kg/m2 Abby Skiffey DO Work Phone: [facility] 02-28-2023 10:30-0400 Body temperature 96.8 [degF] Abby Contrerasy DO Work Phone: [facility] 02-28-2023 10:30-0400 Body weight 72.58 kg Abby Muñoz DO Work Phone: [facility] 01-30-2023 16:31-0400 Body height 149.9 cm Tank Escobar MD Work Phone: [facility] 01-30-2023 16:31-0400 Body mass index (BMI) [Ratio] 27.27 kg/m2 Tank Escobar MD Work Phone: [facility] 01-30-2023 16:31-0400 Body weight 61.24 kg Tank Escobar MD Work Phone: [facility] 01-30-2023 16:31-0400 Diastolic blood pressure 82 mm[Hg] Tank Escobar MD Work Phone: [facility] 01-30-2023 16:31-0400 Heart rate 98 /min Tank Escobar MD Work Phone: [facility] 01-30-2023 16:31-0400 Systolic blood pressure 130 mm[Hg] Tank Escobar MD Work Phone: [facility] 10-04-2022 08:31-0500 Body height 147.3 cm Barby Guerin MD Work Phone: [facility] 10-04-2022 08:31-0500 Body temperature 97.9 [degF] Barby Guerin MD Work Phone: [facility] 10-04-2022 08:31-0500 Body weight 79.38 kg Barby Guerin MD Work Phone: [facility] 10-04-2022 08:31-0500 Diastolic blood pressure 70 mm[Hg] Barby Guerin MD Work Phone: [facility] 10-04-2022 08:31-0500 Heart rate 86 /min Barby Guerin MD Work Phone: [facility] 10-04-2022 08:31-0500 Respiratory rate 10 /min Barby Guerin MD Work Phone: [facility] 10-04-2022 08:31-0500 Systolic blood pressure 116 mm[Hg] Barby Guerin MD Work Phone: [facility] 11-22-2021 22:52-0400 Diastolic blood pressure 69 mm[Hg] ERYN REICHFIELD DO [facility] 11-22-2021 22:52-0400 Heart rate 104 /min ERYN REICHFIELD DO [facility] 11-22-2021 22:52-0400 Respiratory rate 16 /min ERYN REICHFIELD DO [facility] 11-22-2021 22:52-0400 Systolic blood pressure 107 mm[Hg] ERYN REICHFIELD DO [facility] 11-22-2021 22:28-0400 Diastolic blood pressure 79 mm[Hg] ERYN REICHFIELD DO [facility] 11-22-2021 22:28-0400 Heart rate 104 /min ERYN REICHFIELD DO [facility] 11-22-2021 22:28-0400 Respiratory rate 18 /min ERYN REICHFIELD DO [facility] 11-22-2021 22:28-0400 Systolic blood pressure 111 mm[Hg] ERYN REICHFIELD DO [facility] 11-22-2021 21:32-0400 Heart rate 114 /min ERYN REICHFIELD DO [facility] 11-22-2021 21:32-0400 Respiratory rate 20 /min ERYN REICHFIELD DO [facility] 11-22-2021 20:53-0400 Body height 144.8 cm ERYN REICHFIELD DO [facility] 11-22-2021 20:53-0400 Body temperature 98.6 [degF] ERYN REICHFIELD DO [facility] 11-22-2021 20:53-0400 Body weight 75 kg ERYN REICHFIELD DO [facility] 11-22-2021 20:53-0400 Diastolic blood pressure 74 mm[Hg] ERYN REICHFIELD DO [facility] 11-22-2021 20:53-0400 Mean blood pressure 90 mm[Hg] ERYN REICHFIELD DO [facility] 11-22-2021 20:53-0400 Systolic blood pressure 121 mm[Hg] ERYN REICHFIELD DO [facility] Encounters Encounter Date Encounter Type Care Provider Facility Start: 08-28-2023 ambulatory STEVE A WALLACE RENT AND MISCELLANEOUS REMITTANCE CLERK-MAIL CLERK Facility:B Start: 08-22-2023 End: 08-27-2023 ambulatory STEVE Reggie GUARDADO RENT AND MISCELLANEOUS REMITTANCE CLERK-MAIL CLERK Facility:B Start: 08-22-2023 End: 08-26-2023 Outreach Lab TUCKER SEBASTIAN RENT AND MISCELLANEOUS REMITTANCE CLERK-MAIL CLERK [facility] Start: 06-04-2023 End: 06-04-2023 ambulatory [facility] Start: 06-04-2023 End: 06-04-2023 Office outpatient visit 15 minutes [facility] RENT AND MISCELLANEOUS REMITTANCE CLERK - MAIL CLERK Work Phone: [facility] Procedures Date Procedure Procedure Detail Performing Clinician Start: 05-31-2023 Ct abdomen & pelvis w/o contrast material Toan Vidal PA-C Work Phone: Start: 05-30-2023 Urinalysis complete panel - Urine Dat Logan DO Work Phone: Start: 05-30-2023 Urnls dip stick/tabl et reagent auto microscopy Dat Logan DO Work Phone: Start: 05-30-2023 Comprehensive metabo lic panel Dat Logan DO Work Phone: Start: 05-30-2023 HCG, RAPID SERUM Dat Logan DO Work Phone: Start: 02-28-2023 Basic metabolic pane l calcium total Ray Rajput PA-C Work Phone: Start: 02-28-2023 Us retroperitoneal r eal time w/image complete Ray Rajput PA-C Work Phone: Start: 02-28-2023 Radiologic exam abdo men 1 view Ray Rajput PA-C Work Phone: Start: 02-28-2023 Blood count complete auto&auto difrntl wbc Ray Rajput PA-C Work Phone: Start: 02-28-2023 Urinalysis complete panel - Urine Ray Rajput PA-C Work Phone: Start: 02-28-2023 Urnls dip stick/tabl et reagent auto microscopy Ray Rajput PA-C Work Phone: Start: 02-16-2023 Us retroperitoneal r eal time w/image complete Tank Escobar MD Work Phone: Start: 09-02-2003 Tonsillectomy VINNIE PORTILLO RENT AND MISCELLANEOUS REMITTANCE CLERK-MAIL CLERK Tonsillectomy VINNIEBUZZ MORRIS RENT AND MISCELLANEOUS REMITTANCE CLERK-MAIL CLERK Plan of Treatment Date Care Activity Detail Author Start: 2049 Zoster Vaccines (1 of 2) Zoster Vaccines (1 of 2) [facility] Start: 02-18-2030 DTaP/Tdap/Td Vaccines (8 - Td or Tdap) DTaP/Tdap/Td Vaccines (8 - Td or Tdap) [facility] Start: 11-27-2023 End: 11-27-2023 Patient encounter procedure 11/27/2023 4:00 PM EDT Office Visit [facility] [address] [place] [address] Tank Escobar MD [address] [place] [id number] [facility] Start: 06-04-2023 End: 06-04-2023 Patient encounter procedure 06/04/2023 8:00 AM EDT Office Visit [facility] [address] [place] [phone] Robinson Lopes, RENT AND MISCELLANEOUS REMITTANCE CLERK - MAIL CLERK [address] [place], [place] [id number] [facility] Start: 05-03-2023 Influenza vaccination [facility] Start: 04-03-2023 End: 04-03-2023 Telemedicine consultation with patient 04/03/2023 3:50 PM EDT Telemedicine [facility] [address] [place] [address] Tank Escobar MD [address] [place] [address] [facility] Start: 02-20-2023 End: 02-20-2023 Patient encounter procedure 02/20/2023 2:30 PM EDT Office Visit [facility] [address] [place] [address] Tank Escobar MD [address] [place] [address] [facility] Start: 02-16-2023 End: 02-16-2023 Patient encounter procedure 02/16/[address] [facility] [address] [facility] Start: 01-30-2023 End: 01-31-2024 US Retroperitoneum US retroperitoneum Imaging Routine Right ureteral calculus Expected: 01/30/2023, Expires: 01/31/2024 [facility] Immunizations Immunization Date Immunization Notes Care Provider Fa cili 07-01-2021 SARS-CoV-2 mRNA (tozinameran) vaccine STEVE GUARDADO RENT AND MISCELLANEOUS REMITTANCE CLERK-MAIL CLERK [facility] 06-10-2021 SARS-CoV-2 mRNA (tozinameran) vaccine STEVE GUARDADO RENT AND MISCELLANEOUS REMITTANCE CLERK-MAIL CLERK [facility] 02-19-2020 tetanus toxoid, redu randolph diphtheria toxoid, and acellular pertussis vaccine, adsorbed; Translations: [Boostrix (Tdap)] VINNIE MORRIS RENT AND MISCELLANEOUS REMITTANCE CLERK-MAIL CLERK [facility] 06-25-2019 influenza virus vacc ine, unspecified formulation VINNIE MORRIS RENT AND MISCELLANEOUS REMITTANCE CLERK-MAIL CLERK [facility] 06-19-2018 influenza virus vacc ine, unspecified formulation VINNIE MORRIS RENT AND MISCELLANEOUS REMITTANCE CLERK-MAIL CLERK [facility] 10-06-2017 influenza virus vacc ine, unspecified formulation VINNIE MORRIS RENT AND MISCELLANEOUS REMITTANCE CLERK-MAIL CLERK [facility] 10-06-2017 FLUCELVAX QUAD [id number], PF, 60 mcg (15 mcg x 4)/0.5 mL injection Ingrid Claude DO Work Phone: [facility] 07-11-2015 influenza virus vacc ine, unspecified formulation VINNIE ALEXANDRA RENT AND MISCELLANEOUS REMITTANCE CLERK-[facility] 09-29-2013 meningococcal polysaccharide (groups A, C, Y and W-135) diphtheria toxoid conjugate vaccine (MCV4P) VINNIE MORRIS RENT AND MISCELLANEOUS REMITTANCE CLERK-[facility] 12-11-2012 hepatitis B vaccine, unspecified formulation Barby Guerin MD Work Phone: [facility] 06-20-2012 influenza virus vacc ine, unspecified formulation VINNIE GONZALEZRAO RENT AND MISCELLANEOUS REMITTANCE CLERK-MAIL CLERK [facility] 06-14-2011 influenza virus vacc ine, unspecified formulation VINNIE ALEXANDRA RENT AND MISCELLANEOUS REMITTANCE CLERK-MAIL CLERK [facility] 08-22-2010 tetanus toxoid, redu randolph diphtheria toxoid, and acellular pertussis vaccine, adsorbed VINNIE MORRIS RENT AND MISCELLANEOUS REMITTANCE CLERK-[facility] 06-16-2010 influenza virus vacc ine, unspecified formulation VINNIE MORRIS RENT AND MISCELLANEOUS REMITTANCE CLERK-MAIL CLERK [facility] 02-25-2004 diphtheria, tetanus toxoids and acellular pertussis vaccine, unspecified formulation VINNIE GONZALEZRAO RENT AND MISCELLANEOUS REMITTANCE CLERK-MAIL CLERK [facility] 02-25-2004 measles/mumps/rubell a virus vaccine VINNIE GONZALEZRAO RENT AND MISCELLANEOUS REMITTANCE CLERK-MAIL CLERK [facility] 02-25-2004 poliovirus vaccine, inactivated VINNIE ALEXANDRA RENT AND MISCELLANEOUS REMITTANCE CLERK-MAIL CLERK [facility] 10-28-2000 diphtheria, tetanus toxoids and acellular pertussis vaccine, unspecified formulation VINNIE GONZALEZRAO RENT AND MISCELLANEOUS REMITTANCE CLERK-MAIL CLERK [facility] 10-28-2000 haemophilus influenz ae type b vaccine, PRP-T conjugate VINNIE GONZALEZRAO RENT AND MISCELLANEOUS REMITTANCE CLERK-MAIL CLERK [facility] 02-01-2000 hepatitis B pediatri c vaccine VINNIE ALEXANDRA RENT AND MISCELLANEOUS REMITTANCE CLERK-MAIL CLERK [facility] 02-01-2000 measles/mumps/rubell a virus vaccine VINNIE GONZALEZRAO RENT AND MISCELLANEOUS REMITTANCE CLERK-MAIL CLERK [facility] 02-01-2000 poliovirus vaccine, inactivated VINNIE ALEXANDRA RENT AND MISCELLANEOUS REMITTANCE CLERK-MAIL CLERK [facility] 1999 diphtheria, tetanus toxoids and acellular pertussis vaccine, unspecified formulation VINNIE MORRIS RENT AND MISCELLANEOUS REMITTANCE CLERK-MAIL CLERK [facility] 1999 haemophilus influenz ae type b vaccine, PRP-OMP conjugate VINNIE MORRIS RENT AND MISCELLANEOUS REMITTANCE CLERK-MAIL CLERK [facility] 1999 diphtheria, tetanus toxoids and acellular pertussis vaccine, unspecified formulation VINNIE MORRIS RENT AND MISCELLANEOUS REMITTANCE CLERK-MAIL CLERK [facility] 1999 haemophilus influenz ae type b vaccine, PRP-OMP conjugate VINNIE MORRIS RENT AND MISCELLANEOUS REMITTANCE CLERK-MAIL CLERK [facility] 1999 poliovirus vaccine, inactivated VINNIE MORRIS RENT AND MISCELLANEOUS REMITTANCE CLERK-MAIL CLERK [facility] 1999 diphtheria, tetanus toxoids and acellular pertussis vaccine, unspecified formulation VINNIE MORRIS RENT AND MISCELLANEOUS REMITTANCE CLERK-MAIL CLERK [facility] 1999 haemophilus influenz ae type b vaccine, PRP-T conjugate VINNIE MORRIS RENT AND MISCELLANEOUS REMITTANCE CLERK-MAIL CLERK [facility] 1999 poliovirus vaccine, inactivated VINNIE MORRIS RENT AND MISCELLANEOUS REMITTANCE CLERK-MAIL CLERK [facility] 1999 hepatitis B pediatri c vaccine VINNIE GONZALEZRAO RENT AND MISCELLANEOUS REMITTANCE CLERK-MAIL CLERK [facility] Payers Date Payer Category Payer Unknown [id number] 2020 Unknown [id number] 2016 Unknown [employer] PPO OOS [id number] 2016-Present [phone] [address] [place] [address] PPO [id number] 1999 Unknown [id number] 1999 Unknown [id number] 1999 Unknown [id number] 1999 Unknown [id number] 1999 Unknown [id number] 1999 Unknown [id number] Social History Date Type Detail Facility Start: 06-10-2019 End: 10-04-2022 Never smoked tobacco (finding) [facility] Clinical Notes 01-26-2021 to 08-26-2023 LaboratoryRadiologyThcintia Lopes APRN - [facility] - 06/04/2023 8:00 AM EDTTelephone MANDEEP Murphy CNP - 05/31/2023 8:17 AM EDTDischarge InstructionsAttachmentsAttachments Note Date & Type Note Facility 08-26-2023 Note . MICRO - Microbiology PROCEDURE: Culture Wound Aerobic with Gram Stain [*1] SOURCE: Pus BODY SITE: Axilla COLLECTED DATE/TIME: 08/22/2023 16:11 EST RECEIVED DATE/TIME: 08/23/2023 18:44 EST START DATE/TIME: 08/23/2023 18:45 EST FREE TEXT SOURCE: FINAL REPORTS Final Report [] Verified Date/Time/Personnel: 08/26/2023 11:17 EST Moderate Serratia marcescens Few Normal skin gisselle present. Sensitivity testing not indicated. PRELIMINARY REPORTS Preliminary Report [] Verified Date/Time/Personnel: 08/25/2023 10:32 EST Moderate Serratia marcescens Few Normal skin gisselle present. Sensitivity testing not indicated. Final report to follow. Preliminary Report [] Verified Date/Time/Personnel: 08/24/2023 10:15 EST Moderate Serratia marcescens MARINA to follow Final report to follow. STAINS GS [] Verified Date/Time/Personnel: 08/23/2023 19:37 EST 1+ Gram Negative Rods SUSCEPTIBILITY RESULTS Serratia marcescens Antibiotic MARINA Dilut MARINA Inter Amikacin <=16 Susceptible Amoxicillin/ 16/8 Resistant Clavulanate Ampicillin <=8 Resistant Ampicillin/ 8/4 Resistant Sulbactam Aztreonam <=4 Susceptible Cefazolin >16 Resistant Cefotaxime <=2 Susceptible Cefuroxime >16 Resistant Ciprofloxacin <=0.25 Susceptible Ertapenem <=0.5 Susceptible Gentamicin <=2 Susceptible ID Panel Not Not Applicable Applicable Levofloxacin <=0.5 Susceptible Meropenem <=1 Susceptible Minocycline <=4 Susceptible Moxifloxacin <=2 Susceptible Piperacillin/ <=8 Susceptible Tazobactam Tetracycline >8 Resistant Trimethoprim/ <=0.5/9.5 Susceptible Sulfa Performing Locations *1: This test was performed at: [facility], [address] [place] [address], [id number] , [facility] ([place]) 08-22-2023 Evaluation + Plan note Future Scheduled TestsQFT-TB Plus (Client Incubated) 08/22/23Serum test 12/13/22Varicella Zoster Antibody 08/22/23XR Chest 2 Views (PA & Lateral) 01/09/23 [facility] 06-04-2023 History of Present illness Narrative Formatting of this note is different fro m the original. Images from the original note were not included. MANDEEP Mullins CNP 06/04/2023 at 8:30 AM Urology Office Visit PATIENT NAME: Diego Rock DATE OF : 2000 TODAY'S DATE: 06/04/2023 Chief Complaint: Chief Complaint Patient presents with Other Saw PCP, ran culture last week, negative growth. Bladder and Urethral pain better, thinks she passed stone History of Present Illness: Ms. Rock is a 23 y.o. female who presents with dysuria and left flank pain Pt states the pain began about a week ago. She then proceeded to the ED on 05/31/23. CT of abdomen and pelvis showed bilateral non-obstructing renal calculus measuring as large as 0.3 cm, no hydronephrosis. Pt was treated for pain and perceived UTI, and discharged home with Keflex. Patient states she feels better today Patient rates the pain 09/11 Patient stopped taking ATB due to negative culture Pt has a history of kidney stones in the past Family does history of kidney stones Urgency: Denies Dysuria: Denies Hematuria: Denies Review of Systems Gastrointestinal: Negative for abdominal distention and abdominal pain. Genitourinary: Negative for difficulty urinating, dysuria, flank pain, frequency, hematuria and urgency. All other systems reviewed and are negative. Past Medical History: Past Medical History: Diagnosis Date Hidradenitis suppurativa Murmur Past Surgical History: Past Surgical History: Procedure Laterality Date TONSILLECTOMY (HISTORICAL) Current Medications: Prior to Admission medications Medication Sig Start Date End Date Taking? Authorizing Provider cephalexin (Keflex) 500 MG capsule 01/23/23 Historical Provider, tamsulosin (Flomax) 0.4 MG 24 hr capsule 01/24/23 Historical Provider, Allergies: Amoxicillin-pot clavulanate, Cat hair extract, Corylus, and Hydromorphone Social History: Social History Socioeconomic History Marital status: Spouse name: Not on file Number of children: Not on file Years of education: Not on file Highest education level: Not on file Occupational History Not on file Tobacco Use Smoking status: Never Smokeless tobacco: Never Substance and Sexual Activity Alcohol use: No Drug use: No Sexual activity: Not on file Other Topics Concern Not on file Social History Narrative Not on file Social Determinants of Health Financial Resource Strain: Not on file Food Insecurity: Not on file Transportation Needs: Not on file Physical Activity: Not on file Stress: Not on file Social Connections: Not on file Intimate Partner Violence: Not on file Housing Stability: Not on file Family History: No family history on file. Vitals: BP 125/85 Pulse 101 Ht 4' 9 (1.448 m) Wt 163 lb (73.9 kg) LMP 05/17/2023 (Approximate) BMI 35.27 kg/m Physical Exam Vitals reviewed. Constitutional: Appearance: Normal appearance. Cardiovascular: Rate and Rhythm: Normal rate and regular rhythm. Pulses: Normal pulses. Heart sounds: Normal heart sounds. Pulmonary: Effort: Pulmonary effort is normal. Breath sounds: Normal breath sounds. Abdominal: General: Abdomen is flat. Bowel sounds are normal. Palpations: Abdomen is soft. Skin: General: Skin is warm and dry. Neurological: Mental Status: She is alert and oriented to person, place, and time. Psychiatric: Mood and Affect: Mood normal. Behavior: Behavior normal. Thought Content: Thought content normal. Radiology Review: CT ABDOMEN AND PELVIS WITHOUT CONTRAST CLINICAL INDICATION: Flank pain TECHNIQUE: Transaxial sequence through the abdomen and pelvis without contrast with 3 mm reconstruction. Sagittal coronal reconstruction images included. Dose reduction was employed with automated exposure control. COMPARISON: 11/01/2017 FINDINGS: Exam quality: Limited for the evaluation of solid organs due to the lack of intravenous contrast and limited for evaluation of the gastrointestinal tract due to lack of oral contrast. Chest base: Normal. Liver: Normal size and contour. No identifiable lesion. Biliary tree: Normal caliber. No calcified gallstones identified Spleen: Normal. Adrenals: Normal. Pancreas: Unremarkable. Kidneys: No contour abnormality or focal renal lesion. Renal collecting systems: Bilateral small nonobstructing renal calculi measuring as large as 0.3 cm. No hydronephrosis. Free fluid: None. Retroperitoneal/mesenteric lymphadenopathy: None. Aorta: Normal caliber. Bowel: No bowel dilatation. Retained feces. The appendix is not identified, but no inflammatory process surrounds the cecum Abdominal wall: Normal. Bladder: No calculi or filling defects. Pelvic organs/viscera: No mass identified. Pelvic lymphadenopathy: None. Osseous structures: Normal. IMPRESSION: Nonobstructing renal calculi. No other abnormality. Impression/Plan Diagnoses and all orders for this visit: Kidney stones Here as an ED follow-up Overall doing well Feels like she passed the stone No dysuria or irritative voiding symptoms Reviewed general dietary recommendations to assist in stone prevention including: Oral hydration to achieve urine volume of at least 2.5 liters/day. Oral hydration should ideally be with water and fluids high in citrate (e.g. Lemonade, orange juice, etc). Trying to limit food/beverages high in oxalate including but not limited to: spinach, tea, dark sodas, chocolate, nuts, etc. Handout given for low oxalate diet. Limiting sodium in foods/beverages to <2,000mg per day. Moderate calcium intake (1,000-1,200 mg/day). Reviewed other measures to identify specific stone prevention factors would require further evaluation with 24-hour urine study with serum stone profile. Follow-up as needed The patient was instructed to call the office or go to the nearest ER if worsening symptoms such as fever > 101F, inability to urinate, intractable nausea or vomiting, or uncontrolled pain. The patient verbalizes understanding. Follow Up Follow up if symptoms worsen or fail to improve. MANDEEP Mullins CNP 06/04/23 8:30 AM An electronic signature was used to authenticate this note. --Robinson Lopes CNP, APRN on 06/04/2023 at 8:30 AM documented in this encounter [facility] 05-31-2023 Telephone encounter Note Formatting of this note might be differe nt from the original. Noted closing encounter [facility] Work Phone: 05-31-2023 Miscellaneous Notes Formatting of this note might be differe nt from the original. Noted closing encounter Name of caller: Bonnie Contact phone number: [phone] Relationship to Patient: family member mother Provider: PRASANTH Lopes Practice: Urology Chief Complaint/Reason for Call: Bonnie called in stating she just wanted to let office know that her daughter is on the way to the ER today 05/30 as she was advised to do so. Please advise Best time of day caller can be reached: Any Patient advised that office/PCP has 24-48 business hours to return their call: No documented in this encounter [facility] 05-31-2023 Hospital Discharge instructions Toan Vidal PA-C - 05/31/2023 4:18 AM EDT Take Keflex as prescribed. Follow-up with urology. Please follow up with your PCP in 2-3 days. Return to the emergency department if new or worsening symptoms develop. The following attachments cannot be sent through Care Everywhere.Flank Pain ED ([place]onegasque)documented in this encounter [facility] 05-31-2023 Emergency department Note Formatting of this note might be differe nt from the original. Patient expresses that her hope for today's visit is that we will admit her for urology so they can bust up the larger stones or remove them. She reports this is an ongoing issue and she feels that she is continuously being overlooked, stating I wont even go on trips or vacations because I'm constantly in fear that one of these stones is trying to pass, and I'm getting so many CT scans I'm worried that isn't good for my body as well. I explain the need for the CT scan before discussing admission, and I reassure her that we are working hard to meet her needs. she verbalizes understanding and is okay with another CT at this time. Ritu Staton RN 05/31/23222 Ritu Staton RN 05/31/23228 [facility] 05-31-2023 Emergency department Note Formatting of this note might be differe nt from the original. Patient expresses that her hope for today's visit is that we will admit her for urology so they can bust up the larger stones or remove them. She reports this is an ongoing issue and she feels that she is continuously being overlooked, stating I wont even go on trips or vacations because I'm constantly in fear that one of these stones is trying to pass, and I'm getting so many CT scans I'm worried that isn't good for my body as well. I explain the need for the CT scan before discussing admission, and I reassure her that we are working hard to meet her needs. she verbalizes understanding and is okay with another CT at this time. Ritu Staton RN 05/31/23222 Ritu Staton RN 05/31/23228 Upon entry into the room with ordered dose of ibuprofen, patient asks again about IV access. Patient informed of charge nurse's recommendations, and again educated on alternate routes for ketorolac administration. Patient agreeable to IM administration of ordered ketorolac. Patient offered that this RN could again attempt PIV insertion, but patient states that she would prefer IM administration. ED PA-C notified who approves Im route for Toradol. Paulo Gaston RN 05/31/23 0147 ED charge nurse again notified of situation. Due to limited supply of US guided IV needles and catheters, and since ordered CT dose not require IV contrast, US guided PIV placement deemed to not be warranted at this time. ED PA-C notified of situation who agrees to change analgesic to PO route, per patient preference. Patient educated on medications similar to those ordered and patient agreeable to trying PO ibuprofen for pain control. ED PA-C notified. Paulo Gaston RN 05/31/23 0134 ED charge nurse notified of unsuccessful PIV insertion attempt, who suggests that ordered medications be administered via a different route than IV. Patient offered medications via IM and PO as appropriate but replies I'd rather get an IV . Paulo Gaston RN 05/31/23 0123 Attempted PIV insertion one time, without success. Patient states US guidance was previously used to obtain PIV and requests that to be used. Appropriate staff notified. Paulo Gaston RN 05/31/23 0119 Emergency Department Encounter [facility] EMERGENCY DEPT Patient: Diego Rock : 2000 Date of Evaluation: 05/30/2023 ED Supervising Physician: Dat Logan DO I independently examined and evaluated Diego Rock. This will serve as my Supervisory note and shared attestation. I did perform a substantive portion of the visit including all aspects of the Medical Decision Making. I wore appropriate PPE for the entirety of this encounter. In brief, Diego Rock is a 23 y.o. female with past medical history of kidney stones that presents to the emergency department for left flank pain. Patient reports of flank pain that began 2 days ago. States associated dysuria. Denies fever/chills, nausea/vomiting. Focused exam: Gen: NAD Heart: RRR, no murmur Lungs: CTA Abd: soft, non distended and no tenderness to palpation No CVA tenderness Brief ED course/MDM: Patient afebrile, hemodynamically stable and well-appearing. Lab work unremarkable with normal renal function. CT revealed nonobstructing renal 0.3 cm stone with no hydronephrosis. Upon reevaluation, pain improved following toradol. Leuks in urinalysis, although contaminated, given suprapubic pain and dysuria, will treat with Keflex. Patient medically stable for discharge. Return precautions given. Patient instructed follow-up with urology as scheduled on Saturday patient agreeable to and understands the plan. All diagnostic, treatment, and disposition decisions were made by myself in conjunction with the [facility]. For all further details of the patient's emergency department visit, please see their documentation. (Comment: Please note this report has been produced using speech recognition software and may contain errors related to that system including errors in grammar, punctuation, and spelling, as well as words and phrases that may be inappropriate. If there are any questions or concerns please feel free to contact the dictating provider for clarification.) Dat Logan DO [employer] Dat Logan DO 05/31/23 0432 Patient complaining of left flank and groin pain for 5-6 days. Pain is non radiating. Pain alternates from front to back. History of kidney stones. Complaining of dysuria and frequency. Patient complaining of retention. Denies Hematuria. Patient denies fever or chills. documented in this encounter [facility] 05-31-2023 Emergency department Note Formatting of this note might be differe nt from the original. Upon entry into the room with ordered dose of ibuprofen, patient asks again about IV access. Patient informed of charge nurse's recommendations, and again educated on alternate routes for ketorolac administration. Patient agreeable to IM administration of ordered ketorolac. Patient offered that this RN could again attempt PIV insertion, but patient states that she would prefer IM administration. ED PA-C notified who approves Im route for Toradol. Paulo Gaston RN 05/31/23 0147 [facility] 05-31-2023 Emergency department Note Formatting of this note might be differe nt from the original. ED charge nurse again notified of situation. Due to limited supply of US guided IV needles and catheters, and since ordered CT dose not require IV contrast, US guided PIV placement deemed to not be warranted at this time. ED PA-C notified of situation who agrees to change analgesic to PO route, per patient preference. Patient educated on medications similar to those ordered and patient agreeable to trying PO ibuprofen for pain control. ED PA-C notified. Paulo Gaston RN 05/31/23 0134 T [facility] 05-31-2023 Emergency department Note Formatting of this note might be differe nt from the original. ED charge nurse notified of unsuccessful PIV insertion attempt, who suggests that ordered medications be administered via a different route than IV. Patient offered medications via IM and PO as appropriate but replies I'd rather get an IV . Paulo Gaston RN 05/31/23 0123 T [facility] 05-31-2023 Emergency department Note Formatting of this note might be differe nt from the original. Attempted PIV insertion one time, without success. Patient states US guidance was previously used to obtain PIV and requests that to be used. Appropriate staff notified. Paulo Gaston RN 05/31/23 0119 T [facility] 05-30-2023 Emergency department Triage note Formatting of this note might be differe nt from the original. Patient complaining of left flank and groin pain for 5-6 days. Pain is non radiating. Pain alternates from front to back. History of kidney stones. Complaining of dysuria and frequency. Patient complaining of retention. Denies Hematuria. Patient denies fever or chills. [facility] 05-30-2023 Physician Emergency department Note Formatting of this note might be differe nt from the original. Emergency Department Encounter [facility] EMERGENCY DEPT Patient: Diego Rock : 2000 Date of Evaluation: 05/30/2023 ED Supervising Physician: Dat Logan DO I independently examined and evaluated Diego Rock. This will serve as my Supervisory note and shared attestation. I did perform a substantive portion of the visit including all aspects of the Medical Decision Making. I wore appropriate PPE for the entirety of this encounter. In brief, Diego Rock is a 23 y.o. female with past medical history of kidney stones that presents to the emergency department for left flank pain. Patient reports of flank pain that began 2 days ago. States associated dysuria. Denies fever/chills, nausea/vomiting. Focused exam: Gen: NAD Heart: RRR, no murmur Lungs: CTA Abd: soft, non distended and no tenderness to palpation No CVA tenderness Brief ED course/MDM: Patient afebrile, hemodynamically stable and well-appearing. Lab work unremarkable with normal renal function. CT revealed nonobstructing renal 0.3 cm stone with no hydronephrosis. Upon reevaluation, pain improved following toradol. Leuks in urinalysis, although contaminated, given suprapubic pain and dysuria, will treat with Keflex. Patient medically stable for discharge. Return precautions given. Patient instructed follow-up with urology as scheduled on Saturday patient agreeable to and understands the plan. All diagnostic, treatment, and disposition decisions were made by myself in conjunction with the [facility]. For all further details of the patient's emergency department visit, please see their documentation. (Comment: Please note this report has been produced using speech recognition software and may contain errors related to that system including errors in grammar, punctuation, and spelling, as well as words and phrases that may be inappropriate. If there are any questions or concerns please feel free to contact the dictating provider for clarification.) Dat Logan DO [employer] Dat Logan DO 05/31/23 0432 [facility] Phone: 05-30-2023 Telephone encounter Note Formatting of this note might be differe nt from the original. Name of caller: Bonnie Contact phone number: [phone] Relationship to Patient: family member mother Provider: PRASANTH Lopes Practice: Urology Chief Complaint/Reason for Call: Bonnie called in stating she just wanted to let office know that her daughter is on the way to the ER today 05/30 as she was advised to do so. Please advise Best time of day caller can be reached: Any Patient advised that office/PCP has 24-48 business hours to return their call: No [facility] 05-30-2023 Note If pt is in severe p ain with a negative urine culture recommend further evaluation in the ER to rule out obstructing stone. [facility] 05-30-2023 Telephone encounter Note Formatting of this note might be differe nt from the original. Spoke with Bonnie given Aishwarya's message verbatim. Bonnie verbalized understanding and have no further questions or concerns at this time. [facility] 05-30-2023 Miscellaneous Notes Formatting of this note might be differe nt from the original. Spoke with Bonnie given Aishwarya's message verbatim. Bonnie verbalized understanding and have no further questions or concerns at this time. LVM for Bonnie to call the office. If pt is in severe pain with a negative urine culture recommend further evaluation in the ER to rule out obstructing stone. Patient's mother Bonnie called patient is having some severe flank pain. Patient saw her PCP for this and PCP ordered urine culture and started patient on Keflex 500 mg TID. Patient received a call from her PCP and the urine culture came back negative. Patient's mother Bonnie want to know if patient should stop Keflex right away. Patient is still with severe flank pain, Bonnie wants to know if an order can be put in for KUB and US since patient does have a history of kidney stones and patient's pain isn't getting any better. Patient is scheduled to see Nawaf on 06/04/23. Please advise documented in this encounter [facility] 05-30-2023 Telephone encounter Note Formatting of this note might be differe nt from the original. LVM for Bonnie to call the office. [facility] 05-30-2023 Telephone encounter Note Formatting of this note might be differe nt from the original. If pt is in severe pain with a negative urine culture recommend further evaluation in the ER to rule out obstructing stone. [facility] [employer] Work Phone: 05-30-2023 Telephone encounter Note Formatting of this note might be differe nt from the original. Patient's mother Bonnie called patient is having some severe flank pain. Patient saw her PCP for this and PCP ordered urine culture and started patient on Keflex 500 mg TID. Patient received a call from her PCP and the urine culture came back negative. Patient's mother Bonnie want to know if patient should stop Keflex right away. Patient is still with severe flank pain, Bonnie wants to know if an order can be put in for KUB and US since patient does have a history of kidney stones and patient's pain isn't getting any better. Patient is scheduled to see [facility] on 06/04/23. Please advise [facility] 05-29-2023 Note . MICRO - Microbiology PROCEDURE: Urine Culture [*1] SOURCE: Urine, Clean Catch BODY SITE: COLLECTED DATE/TIME: 05/27/2023 15:59 EDT RECEIVED DATE/TIME: 05/27/2023 21:50 EDT START DATE/TIME: 05/27/2023 21:51 EDT FREE TEXT SOURCE: FINAL REPORTS Final Report [] Verified Date/Time/Personnel: 05/29/2023 07:41 EDT 50,000 - 100,000 cfu/ml Mixed growth consistent with normal urogenital gisselle. PRELIMINARY REPORTS Preliminary Report [] Verified Date/Time/Personnel: 05/28/2023 09:00 EDT No growth to date Performing Locations *1: This test was performed at: [facility], [address] [place] [address], [id number] , [facility] ([place]) 03-18-2023 Telephone encounter Note Formatting of this note might be differe nt from the original. Pt has an appt scheduled. Closing encounter [facility] 03-18-2023 Miscellaneous Notes Formatting of this note might be differe nt from the original. Pt has an appt scheduled. Closing encounter Requesting status of ED follow up appt. Please advise. Name of Caller: Bonnei Contact Reason for Appointment: Pt is asking to be seen for a hosp follow up Office Name: Uro Medication Refills need, if any: n/a Medication Name: n/a documented in this encounter [facility] 03-18-2023 Telephone encounter Note Formatting of this note might be differe nt from the original. Pt has an appt scheduled. Closing encounter [facility] 03-18-2023 Miscellaneous Notes Formatting of this note might be differe nt from the original. Pt has an appt scheduled. Closing encounter [employer] request received to schedule a follow up for Kidney stones and left flank pain. Please contact patient [phone]. documented in this encounter [facility] 03-04-2023 Telephone encounter Note Formatting of this note might be differe nt from the original. Requesting status of ED follow up appt. Please advise. [facility] 03-01-2023 Telephone encounter Note Formatting of this note might be differe nt from the original. Name of Caller: Bonnie Contact Reason for Appointment: Pt is asking to be seen for a hosp follow up Office Name: Uro Medication Refills need, if any: n/a Medication Name: n/a [facility] 02-28-2023 Telephone encounter Note Formatting of this note might be differe nt from the original. Secure Chat request received to schedule a follow up for Kidney stones and left flank pain. Please contact patient [phone]. [facility] 02-28-2023 Miscellaneous Notes Formatting of this note might be differe nt from the original. Secure Chat request received to schedule a follow up for Kidney stones and left flank pain. Please contact patient [phone]. documented in this encounter [facility] 02-28-2023 Hospital Discharge instructions Ray Rajput PA-C - 02/28/2023 4:28 PM EDT Given your antibiotic allergies we will choose an antibiotic based on your culture results rather than starting one now. We are working with [facility] to schedule you close follow up with urology. The following attachments cannot be sent through Care Everywhere.Renal Colic (Monegasque)documented in this encounter [facility] 02-28-2023 Emergency department Note Formatting of this note is different fro m the original. EMERGENCY DEPARTMENT ENCOUNTER Pt Name: Diego Rock Birthdate 2000 Date of evaluation: 02/28/2023 ED Provider: Ray Rajput PA-C CHIEF COMPLAINT Chief Complaint Patient presents with Flank Pain Pt to ER for kidney stone. Pt states she was told by urology that she has a 5mm stone. Pt states she started to vomit this morning. Pt states she took a norco prior to coming to ER. HISTORY OF PRESENT ILLNESS (Location/Symptom, Timing/Onset, Context/Setting, Quality, Duration, Modifying Factors, Severity) Note limiting factors. I wore appropriate PPE for the entirety of this encounter. HPI Diego Rock is a 23 y.o. female who presents to the emergency department with left-sided flank pain over the last few days, believes it is related to a kidney stone. States she has had numerous kidney stones in the past and this feels similar. She was recently diagnosed with left-sided stone that was 5 mm and saw her urologist Dr. Escobar, and was to manage at home medically, symptoms had been somewhat improving but worsening again yesterday. She tried Parma and Azo without much improvement. Has had some bladder pressure and dysuria as well. She denies fevers or chills. Denies recent hospitalization or procedures. Nursing Notes were reviewed. Limitations to history: None Outside historians: Family significant other and mother REVIEW OF SYSTEMS Review of Systems 10 systems reviewed, positives and pertinent negatives as per HPI. All other systems were reviewed and are negative. PAST MEDICAL HISTORY Past Medical History: Diagnosis Date Hidradenitis suppurativa Murmur SURGICAL HISTORY Past Surgical History: Procedure Laterality Date TONSILLECTOMY (HISTORICAL) CURRENT MEDICATIONS Discharge Medication List as of 02/28/2023 4:29 PM CONTINUE these medications which have NOT CHANGED Details cephalexin (Keflex) 500 MG capsule Starting 01/23/2023, Historical Med tamsulosin (Flomax) 0.4 MG 24 hr capsule Starting Doreen 01/24/2023, Historical Med ALLERGIES Amoxicillin-pot clavulanate, Cat hair extract, Corylus, and Hydromorphone FAMILY HISTORY No family history on file. SOCIAL HISTORY Social History Socioeconomic History Marital status: Tobacco Use Smoking status: Never Smokeless tobacco: Never Substance and Sexual Activity Alcohol use: No Drug use: No SCREENINGS PHYSICAL EXAM ED Triage Vitals [02/28/23 1030] Temp Heart Rate Resp BP 36 C (96.8 F) (!) 114 18 137/88 SpO2 Temp Source Heart Rate Source Patient Position 97 % Temporal Monitor -- BP Location FiO2 (%) -- -- Physical Exam Constitutional: Comments: Young female, not distressed, calm and cooperative. HENT: Head: Normocephalic and atraumatic. Cardiovascular: Rate and Rhythm: Normal rate and regular rhythm. Heart sounds: Normal heart sounds. Pulmonary: Effort: Pulmonary effort is normal. Breath sounds: Normal breath sounds and air entry. No decreased breath sounds, wheezing, rhonchi or rales. Abdominal: General: Abdomen is flat. Bowel sounds are normal. Palpations: Abdomen is soft. Tenderness: There is no abdominal tenderness. There is left CVA tenderness. There is no guarding or rebound. Musculoskeletal: Cervical back: Full passive range of motion without pain, normal range of motion and neck supple. Skin: General: Skin is warm. Neurological: Mental Status: She is alert. DIAGNOSTIC RESULTS RADIOLOGY (Per Emergency Physician): Interpretation per the Radiologist below, if available at the time of this note: US retroperitoneum Final Result Bilateral renal calculi. No hydronephrosis. Small right kidney. Report Dictated on Electronically Signed By: Jabari Lord Electronically Signed Date/Time: 02/28/2023 2:28 PM EDT XR abdomen 1 view Final Result Unremarkable abdomen. Nonobstructive bowel gas pattern. A large amount of feces is present within the colon. Report Dictated on Electronically Signed By: Zachery Wylie Electronically Signed Date/Time: 02/28/2023 2:30 PM EDT LABS: Labs Reviewed CBC WITH AUTO DIFFERENTIAL - Abnormal Result Value Auto WBC 12.9 (*) RBC 5.12 Hemoglobin 14.2 Hematocrit 43.1 MCV 84.2 MCH 27.7 MCHC 32.9 RDW 14.0 Platelets 354 MPV 8.4 nRBC 0.1 Neutrophils Relative 67.6 Lymphocytes Relative 20.6 Monocytes Relative 7.7 Eosinophils Relative 3.4 Basophils Relative 0.7 Neutrophils Absolute 8.7 (*) Lymphocytes Absolute 2.7 Monocytes Absolute 1.0 (*) Eosinophils Absolute 0.4 Basophils Absolute 0.1 BASIC METABOLIC PANEL - Abnormal SODIUM 136 POTASSIUM 3.8 CHLORIDE 108 (*) CARBON DIOXIDE 19 (*) UREA NITROGEN 13 CREATININE 0.68 GLUCOSE 82 CALCIUM 8.1 (*) ANION GAP 9 eGFR >90.0 COMPLETE URINALYSIS - Abnormal Color, Urine Yellow Clarity, Urine Turbid (*) pH, Urine 5.5 Leukocytes, Urine 500 (*) Nitrite, Urine Negative Protein, Urine Negative Glucose, Urine Normal Bilirubin, Urine Negative Ketones, Urine Negative Urobilinogen, Urine Normal Blood, Urine Negative RBC, Urine 0-2 WBC, Urine 6-10 (*) Squamous Epithelial, Urine 3-5 Bacteria, Urine Negative Hyaline Casts, Urine Negative SPECIFIC GRAVITY OF URINE (NUMERIC) 1.003 (*) HEPATIC FUNCTION PANEL - Normal BILIRUBIN, TOTAL 0.3 BILIRUBIN, DIRECT 0.0 ALKALINE PHOSPHATASE 125 AST (SGOT) 26 ALT 19 ALBUMIN 4.0 TOTAL PROTEIN 7.2 LIPASE - Normal LIPASE 191 HCG QUANTITATIVE BLOOD HCG QUANTITATIVE <2 Narrative: Values in should double every 2 to 3 days for the first 6 weeks. Elevated concentrations of human chorionic gonadotropin (hCG) measured in the first trimester of are observed in normal , but may serve as an indication of chorionic carcinoma, hydatiform mole, or multiple . Decreasing hCG concentrations indicate threatened or missed , recent termination of , ectopic , gestosis or intrauterine . Areli- and postmenopausal females may have detectable hCG concentrations (< or = to 14 mIU/mL) due to pituitary production of hCG. Serum follicle-stimulating hormone measurement may aid in ruling-out in this population. Cutoffs of greater than 20 to 45 mIU/mL have been suggested and are method dependent. False-elevations (called phantom human chorionic gonadotropin: hCG) may occur with patients who have human antianimal or heterophilic antibodies. Some specimens may not dilute linearly due to abnormal forms of hCG. Elevated hCG concentrations not associated with are found in patients with other diseases such as tumors of the germ cells, ovaries, bladder, pancreas, stomach, lungs, and liver. This test is not intended to detect or monitor tumors or gestational trophoblastic disease. COMPLETE URINALYSIS WITH REFLEX TO CULTURE Narrative: The following orders were created for panel order Urinalysis complete with reflex to Culture. Procedure Abnormality Status --------- ------ Complete Urinalysis[[id number]] Abnormal Final result Please view results for these tests on the individual orders. All other labs were within normal range or not returned as of this dictation. EMERGENCY DEPARTMENT COURSE and DIFFERENTIAL DIAGNOSIS/MDM: Vitals: Vitals: 02/28/23 1030 02/28/23 1330 02/28/23 1530 02/28/23 1653 BP: 137/88 115/75 121/79 120/81 Pulse: (!) 114 104 105 103 Resp: 18 20 20 20 Temp: 36 C (96.8 F) TempSrc: Temporal SpO2: 97% 100% 97% 97% Weight: 72.6 kg (160 lb) Medications ketorolac (Toradol) injection 15 mg (15 mg IntraVENous Given 02/28/23 1317) ondansetron (Zofran) injection 4 mg (4 mg IntraVENous Given 02/28/23 1317) sodium chloride 0.9 % bolus 1,000 mL (0 mL IntraVENous Stopped 02/28/23 1415) morphine sulfate 4 mg (4 mg IntraVENous Given 02/28/23 1504) LORazepam (Ativan) tablet 1 mg (1 mg Oral Given 02/28/23 1504) ED care was supervised by Dr. Muñoz who independently examined and evaluated the patient. Please see their attestation note for further details. In brief, Diego Rock is a 23 y.o. female who presented to the emergency department with left flank pain with concern for urinary tract stone versus infection. Nursing notes and medical records reviewed, she saw [facility] urology on 02/20/2023 for bilateral renal calculi, at that time she was doing well had no new complaints so plan was for routine follow-up. Differential considerations included obstructive urinary tract stone, urinary tract infection. Initial medical management includes IV fluids, IV Toradol, IV Zofran. Initial workup includes screening labs, urinalysis, ultrasound retroperitoneal, x-ray abdomen. She would like to avoid CT imaging if possible to avoid repeated radiation exposure as she states she has had numerous CTs for kidney stone evaluations. Upon reassessment patient not much improved after Toradol, IV morphine was given. She also complained of anxiety so 1 mg p.o. Ativan was given. Lab workup results reviewed, CBC shows white blood cell count 12.9, hemoglobin 14.2. BMP shows normal renal function, chloride 108, serum bicarb 19, no significant derangement otherwise. Urinalysis with 500 leukocytes, negative nitrates, 6-10 white blood cells, 3-5 squamous epithelial cells, negative for bacteria. Quantitative hCG undetectable. Lipase not elevated. Hepatic function panel within normal limits. Retroperitoneal ultrasound shows bilateral renal calculi no hydronephrosis small right kidney, no acute process otherwise per radiology. Single view abdominal x-ray shows unremarkable abdomen radiology. Chronic conditions contributing to patients presentation include history of kidney stones. I have low suspiscion for obstructive urinary tract stone or surgical urologic process causing patient's symptoms given the lack of suggestive findings on lab/imaging. Social determinants to care: None identified Yamil case with urology team, they do not see any surgical indications or condition requiring admission from their perspective based on our conversation. Upon subsequent reassessment patient is feeling better. She feels this could be related to underlying interstitial cystitis and would like to follow-up with her urologist. I recommended she follow-up with her urologist in the next 2 weeks, possibly pursue cystoscopy. Discussed ED return precautions, recommended consulting their primary doctor or returning to the ED if there are any new or worsening of symptoms. Patient recommended to continue home ibuprofen, Parma, Azo. We will follow-up regarding her urine culture to decide on antibiotics. Patient discharged in stable improved condition with follow-up. PROCEDURES: Unless otherwise noted below, none Procedures FINAL IMPRESSION 1. Left flank pain 2. Kidney stones DISPOSITION Discharge 02/28/2023 04:24:32 PM PATIENT REFERRED TO: Tank Escobar MD [address] [facility] [address] [facility] [id number] DISCHARGE MEDICATIONS: Discharge Medication List as of 02/28/2023 4:29 PM (Comment: Please note this report has been produced using speech recognition software and may contain errors related to that system including errors in grammar, punctuation, and spelling, as well as words and phrases that may be inappropriate. If there are any questions or concerns please feel free to contact the dictating provider for clarification.) Ray Rajput PA-C (electronically signed) Emergency Medicine Provider Ray Rajput PA-C 02/28/23 3031 documented in this encounter [facility] 02-28-2023 Physician Emergency department Note Formatting of this note is different fro m the original. EMERGENCY DEPARTMENT ENCOUNTER Pt Name: Diego Rock Birthdate 2000 Date of evaluation: 02/28/2023 ED Provider: Ray Rajput PA-C CHIEF COMPLAINT Chief Complaint Patient presents with Flank Pain Pt to ER for kidney stone. Pt states she was told by urology that she has a 5mm stone. Pt states she started to vomit this morning. Pt states she took a norco prior to coming to ER. HISTORY OF PRESENT ILLNESS (Location/Symptom, Timing/Onset, Context/Setting, Quality, Duration, Modifying Factors, Severity) Note limiting factors. I wore appropriate PPE for the entirety of this encounter. HPI Diego Rock is a 23 y.o. female who presents to the emergency department with left-sided flank pain over the last few days, believes it is related to a kidney stone. States she has had numerous kidney stones in the past and this feels similar. She was recently diagnosed with left-sided stone that was 5 mm and saw her urologist Dr. Escobar, and was to manage at home medically, symptoms had been somewhat improving but worsening again yesterday. She tried Parma and Azo without much improvement. Has had some bladder pressure and dysuria as well. She denies fevers or chills. Denies recent hospitalization or procedures. Nursing Notes were reviewed. Limitations to history: None Outside historians: Family significant other and mother REVIEW OF SYSTEMS Review of Systems 10 systems reviewed, positives and pertinent negatives as per HPI. All other systems were reviewed and are negative. PAST MEDICAL HISTORY Past Medical History: Diagnosis Date Hidradenitis suppurativa Murmur SURGICAL HISTORY Past Surgical History: Procedure Laterality Date TONSILLECTOMY (HISTORICAL) CURRENT MEDICATIONS Discharge Medication List as of 02/28/2023 4:29 PM CONTINUE these medications which have NOT CHANGED Details cephalexin (Keflex) 500 MG capsule Starting 01/23/2023, Historical Med tamsulosin (Flomax) 0.4 MG 24 hr capsule Starting Doreen 01/24/2023, Historical Med ALLERGIES Amoxicillin-pot clavulanate, Cat hair extract, Corylus, and Hydromorphone FAMILY HISTORY No family history on file. SOCIAL HISTORY Social History Socioeconomic History Marital status: Tobacco Use Smoking status: Never Smokeless tobacco: Never Substance and Sexual Activity Alcohol use: No Drug use: No SCREENINGS PHYSICAL EXAM ED Triage Vitals [02/28/23 1030] Temp Heart Rate Resp BP 36 C (96.8 F) (!) 114 18 137/88 SpO2 Temp Source Heart Rate Source Patient Position 97 % Temporal Monitor -- BP Location FiO2 (%) -- -- Physical Exam Constitutional: Comments: Young female, not distressed, calm and cooperative. HENT: Head: Normocephalic and atraumatic. Cardiovascular: Rate and Rhythm: Normal rate and regular rhythm. Heart sounds: Normal heart sounds. Pulmonary: Effort: Pulmonary effort is normal. Breath sounds: Normal breath sounds and air entry. No decreased breath sounds, wheezing, rhonchi or rales. Abdominal: General: Abdomen is flat. Bowel sounds are normal. Palpations: Abdomen is soft. Tenderness: There is no abdominal tenderness. There is left CVA tenderness. There is no guarding or rebound. Musculoskeletal: Cervical back: Full passive range of motion without pain, normal range of motion and neck supple. Skin: General: Skin is warm. Neurological: Mental Status: She is alert. DIAGNOSTIC RESULTS RADIOLOGY (Per Emergency Physician): Interpretation per the Radiologist below, if available at the time of this note: US retroperitoneum Final Result Bilateral renal calculi. No hydronephrosis. Small right kidney. Report Dictated on Electronically Signed By: Jabari Lord Electronically Signed Date/Time: 02/28/2023 2:28 PM EDT XR abdomen 1 view Final Result Unremarkable abdomen. Nonobstructive bowel gas pattern. A large amount of feces is present within the colon. Report Dictated on Electronically Signed By: Zachery Wylie Electronically Signed Date/Time: 02/28/2023 2:30 PM EDT LABS: Labs Reviewed CBC WITH AUTO DIFFERENTIAL - Abnormal Result Value Auto WBC 12.9 (*) RBC 5.12 Hemoglobin 14.2 Hematocrit 43.1 MCV 84.2 MCH 27.7 MCHC 32.9 RDW 14.0 Platelets 354 MPV 8.4 nRBC 0.1 Neutrophils Relative 67.6 Lymphocytes Relative 20.6 Monocytes Relative 7.7 Eosinophils Relative 3.4 Basophils Relative 0.7 Neutrophils Absolute 8.7 (*) Lymphocytes Absolute 2.7 Monocytes Absolute 1.0 (*) Eosinophils Absolute 0.4 Basophils Absolute 0.1 BASIC METABOLIC PANEL - Abnormal SODIUM 136 POTASSIUM 3.8 CHLORIDE 108 (*) CARBON DIOXIDE 19 (*) UREA NITROGEN 13 CREATININE 0.68 GLUCOSE 82 CALCIUM 8.1 (*) ANION GAP 9 eGFR >90.0 COMPLETE URINALYSIS - Abnormal Color, Urine Yellow Clarity, Urine Turbid (*) pH, Urine 5.5 Leukocytes, Urine 500 (*) Nitrite, Urine Negative Protein, Urine Negative Glucose, Urine Normal Bilirubin, Urine Negative Ketones, Urine Negative Urobilinogen, Urine Normal Blood, Urine Negative RBC, Urine 0-2 WBC, Urine 6-10 (*) Squamous Epithelial, Urine 3-5 Bacteria, Urine Negative Hyaline Casts, Urine Negative SPECIFIC GRAVITY OF URINE (NUMERIC) 1.003 (*) HEPATIC FUNCTION PANEL - Normal BILIRUBIN, TOTAL 0.3 BILIRUBIN, DIRECT 0.0 ALKALINE PHOSPHATASE 125 AST (SGOT) 26 ALT 19 ALBUMIN 4.0 TOTAL PROTEIN 7.2 LIPASE - Normal LIPASE 191 HCG QUANTITATIVE BLOOD HCG QUANTITATIVE <2 Narrative: Values in should double every 2 to 3 days for the first 6 weeks. Elevated concentrations of human chorionic gonadotropin (hCG) measured in the first trimester of are observed in normal , but may serve as an indication of chorionic carcinoma, hydatiform mole, or multiple . Decreasing hCG concentrations indicate threatened or missed , recent termination of , ectopic , gestosis or intrauterine . Areli- and postmenopausal females may have detectable hCG concentrations (< or = to 14 mIU/mL) due to pituitary production of hCG. Serum follicle-stimulating hormone measurement may aid in ruling-out in this population. Cutoffs of greater than 20 to 45 mIU/mL have been suggested and are method dependent. False-elevations (called phantom human chorionic gonadotropin: hCG) may occur with patients who have human antianimal or heterophilic antibodies. Some specimens may not dilute linearly due to abnormal forms of hCG. Elevated hCG concentrations not associated with are found in patients with other diseases such as tumors of the germ cells, ovaries, bladder, pancreas, stomach, lungs, and liver. This test is not intended to detect or monitor tumors or gestational trophoblastic disease. COMPLETE URINALYSIS WITH REFLEX TO CULTURE Narrative: The following orders were created for panel order Urinalysis complete with reflex to Culture. Procedure Abnormality Status --------- ------ Complete Urinalysis[[id number]] Abnormal Final result Please view results for these tests on the individual orders. All other labs were within normal range or not returned as of this dictation. EMERGENCY DEPARTMENT COURSE and DIFFERENTIAL DIAGNOSIS/MDM: Vitals: Vitals: 02/28/23 1030 02/28/23 1330 02/28/23 1530 02/28/23 1653 BP: 137/88 115/75 121/79 120/81 Pulse: (!) 114 104 105 103 Resp: 18 20 20 20 Temp: 36 C (96.8 F) TempSrc: Temporal SpO2: 97% 100% 97% 97% Weight: 72.6 kg (160 lb) Medications ketorolac (Toradol) injection 15 mg (15 mg IntraVENous Given 02/28/23 1317) ondansetron (Zofran) injection 4 mg (4 mg IntraVENous Given 02/28/23 1317) sodium chloride 0.9 % bolus 1,000 mL (0 mL IntraVENous Stopped 02/28/23 1415) morphine sulfate 4 mg (4 mg IntraVENous Given 02/28/23 1504) LORazepam (Ativan) tablet 1 mg (1 mg Oral Given 02/28/23 1504) ED care was supervised by Dr. Muñoz who independently examined and evaluated the patient. Please see their attestation note for further details. In brief, Diego Rock is a 23 y.o. female who presented to the emergency department with left flank pain with concern for urinary tract stone versus infection. Nursing notes and medical records reviewed, she saw [facility] urology on 02/20/2023 for bilateral renal calculi, at that time she was doing well had no new complaints so plan was for routine follow-up. Differential considerations included obstructive urinary tract stone, urinary tract infection. Initial medical management includes IV fluids, IV Toradol, IV Zofran. Initial workup includes screening labs, urinalysis, ultrasound retroperitoneal, x-ray abdomen. She would like to avoid CT imaging if possible to avoid repeated radiation exposure as she states she has had numerous CTs for kidney stone evaluations. Upon reassessment patient not much improved after Toradol, IV morphine was given. She also complained of anxiety so 1 mg p.o. Ativan was given. Lab workup results reviewed, CBC shows white blood cell count 12.9, hemoglobin 14.2. BMP shows normal renal function, chloride 108, serum bicarb 19, no significant derangement otherwise. Urinalysis with 500 leukocytes, negative nitrates, 6-10 white blood cells, 3-5 squamous epithelial cells, negative for bacteria. Quantitative hCG undetectable. Lipase not elevated. Hepatic function panel within normal limits. Retroperitoneal ultrasound shows bilateral renal calculi no hydronephrosis small right kidney, no acute process otherwise per radiology. Single view abdominal x-ray shows unremarkable abdomen radiology. Chronic conditions contributing to patients presentation include history of kidney stones. I have low suspiscion for obstructive urinary tract stone or surgical urologic process causing patient's symptoms given the lack of suggestive findings on lab/imaging. Social determinants to care: None identified Yamil case with urology team, they do not see any surgical indications or condition requiring admission from their perspective based on our conversation. Upon subsequent reassessment patient is feeling better. She feels this could be related to underlying interstitial cystitis and would like to follow-up with her urologist. I recommended she follow-up with her urologist in the next 2 weeks, possibly pursue cystoscopy. Discussed ED return precautions, recommended consulting their primary doctor or returning to the ED if there are any new or worsening of symptoms. Patient recommended to continue home ibuprofen, Parma, Azo. We will follow-up regarding her urine culture to decide on antibiotics. Patient discharged in stable improved condition with follow-up. PROCEDURES: Unless otherwise noted below, none Procedures FINAL IMPRESSION 1. Left flank pain 2. Kidney stones DISPOSITION Discharge 02/28/2023 04:24:32 PM PATIENT REFERRED TO: Tank Escobar MD [address] [place] [id number] DISCHARGE MEDICATIONS: Discharge Medication List as of 02/28/2023 4:29 PM (Comment: Please note this report has been produced using speech recognition software and may contain errors related to that system including errors in grammar, punctuation, and spelling, as well as words and phrases that may be inappropriate. If there are any questions or concerns please feel free to contact the dictating provider for clarification.) Ray Rajput PA-C (electronically signed) Emergency Medicine Provider Ray Rajput PA-C 02/28/23 1721 [facility] 01-30-2023 History of Present illness Narrative Formatting of this note is different fro m the original. Images from the original note were not included. Tank Escobar MD 01/30/2023 at 5:05 PM Office follow up PATIENT NAME: Diego Rock DATE OF : 2000 TODAY'S DATE: 01/30/2023 CHIEF COMPLAINT: Chief Complaint Patient presents with Nephrolithiasis ER follow up UTI HX of-Taking Keflex, started on 12/24 OTHER Having pain/pressure in bladder and urethra-States Advil alleviates pain Subjective: Ms. Rock is a 23 y.o. female who presents to the office due to recent stone- Was in [place] ED for right flank pain. 3mm right Distal stone on KUB for follow up of bilateral renal calculi. Did not get the KUB done ( was to be done prior to follow up appt) 06/21/22 Visit with Caroline Kevin H/o urolithiasis, has not needed surgical intervention. Also has a known h/o UTIs. 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 She drinks a lot of seltzer water, and also water and 1 cup of coffee typically in a day. She had imaging in [place] and brought the disc today but unable to load at this time. Did not complete KUB. Will do this NORY. Last year CT from 05.24 showed bilateral non-obstructing renal calculi; largest in left 2 mm, largest 1 mm right. 1. Kidney stones - Overall pt has been doing well since her last visit. No recent complaints of any abdominal or flank pain. - Discussed PRN visitation vs monitoring for stones with periodic KUB and renal US. - Will plan to continue to monitor for stone recurrence in 6 months with KUB and call with results. 01/30/23: Still having right pelvic pain with dysuria and bladder spasms; no flank pain Is on keflex Passed a small stone in urine strainer Got KUB in [place] showing 3mm right pelvic calcification as well as bilateral renal calculi Advil helped pain; AZO did not History of stones for 4-5 years Has stress incontinence; never had children; wants to do PFPT History of UTIs, usually 3 times per year; often post-coital Daily BM Mom with history of IC Review of Systems No Distress Respiratory WNL Past Medical History: Past Medical History: Diagnosis Date Hidradenitis suppurativa Murmur Past Surgical History: Past Surgical History: Procedure Laterality Date TONSILLECTOMY (HISTORICAL) Allergies: Amoxicillin-pot clavulanate, Cat hair extract, Corylus, and Hydromorphone Social History: Social History Socioeconomic History Marital status: Single Spouse name: Not on file Number of children: Not on file Years of education: Not on file Highest education level: Not on file Occupational History Not on file Tobacco Use Smoking status: Never Smokeless tobacco: Never Substance and Sexual Activity Alcohol use: No Drug use: No Sexual activity: Not on file Other Topics Concern Not on file Social History Narrative Not on file Social Determinants of Health Financial Resource Strain: Not on file Food Insecurity: Not on file Transportation Needs: Not on file Physical Activity: Not on file Stress: Not on file Social Connections: Not on file Intimate Partner Violence: Not on file Housing Stability: Not on file Family History: No family history on file. Medications Prior to Admission medications Not on File Vitals: BP 130/82 Pulse 98 Ht 4' 11 (1.499 m) Wt 135 lb (61.2 kg) BMI 27.27 kg/m Physical Exam General: No distress Abdomen: obese Back: straight : No flank ttp Labs: WBC No results found for: WBC BMP No results found for: NA, K, CL, CO2, BUN, CREATININE, GLUCOSE, CALCIUM PSA No results found for: PSA UA Lab Results Component Value Date UROBILINOGEN 0.2 06/08/2021 BILIRUBINUR neg 06/08/2021 follow up of bilateral renal calculi. Did not get the KUB done ( was to be done prior to follow up appt) 06/21/22 Visit with Caroline Kevin H/o urolithiasis, has not needed surgical intervention. Also has a known h/o UTIs. 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 She drinks a lot of seltzer water, and also water and 1 cup of coffee typically in a day. She had imaging in [place] and brought the disc today but unable to load at this time. Did not complete KUB. Will do this NORY. Last year CT from 9.22 showed bilateral non-obstructing renal calculi; largest in left 2 mm, largest 1 mm right. 1. Kidney stones - Overall pt has been doing well since her last visit. No recent complaints of any abdominal or flank pain. - Discussed PRN visitation vs monitoring for stones with periodic KUB and renal US. - Will plan to continue to monitor for stone recurrence in 6 months with KUB and call with results. Review: Impression/Plan Diego was seen today for nephrolithiasis, uti and other. Diagnoses and all orders for this visit: History of UTI (Primary) Kidney stone Right ureteral calculus - XR abdomen 1 view; Future - US retroperitoneum; Future Follow up in about 2 weeks (around 02/13/2023) for kub, renal ultrasound. KUB, Renal US at [place]. Tank Escobar MD 01/30/23 5:05 PM documented in this encounter [facility] 01-24-2023 Note . MICRO - Microbiology PROCEDURE: Urine Culture [*1] SOURCE: Urine BODY SITE: COLLECTED DATE/TIME: 01/23/2023 00:55 EDT RECEIVED DATE/TIME: 01/23/2023 15:14 EDT START DATE/TIME: 01/23/2023 15:14 EDT FREE TEXT SOURCE: FINAL REPORTS Final Report [] Verified Date/Time/Personnel: 01/24/2023 14:17 EDT 50,000 - 100,000 cfu/ml Mixed growth consistent with normal urogenital gisselle. Performing Locations *1: This test was performed at: [facility], [address] [place] [address], [phone] , [facility] ([place]) 12-13-2022 Evaluation + Plan note Future Scheduled TestsSerum test 12/13/22XR Chest 2 Views (PA & Lateral) 01/09/23 [facility] 11-12-2022 Miscellaneous Notes Formatting of this note might be differe nt from the original. Patient left vm stating she has not been able to get her labs or xrays because she has been sick. Message was not clear due to background noise, sounded like she was driving and a turn signal was heard. Call placed to patient. No answer and Mail box is full. Left message on Spouse, Shukri vm that patient can go to any [facility] facility for testing. Kaye Monae LPN documented in this encounter [facility] 10-04-2022 Note HNO ID: [id number] Author: Barby Guerin MD Service: ? 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 Knee pain, right knee clicks, sometimes hurt and could not walk, rarely. No x rays, no injuries. Sometimes rings don't fit. Back pain sometimes in the mornings which she attributes to sleeping wrong. Ankle sprain in high school, better now Skin issues - MRSA vs hidradenitis. Kidney stone issues, stents Family history of autoimmune disease: aunt had hidradenitis ? Boils? Mother has osteopenia Smoking status: Tobacco Use: Never Rheumatology REVIEW OF SYSTEMS: Constitutional: Recent Weight Change: No Fatigue: No Fever: No Night sweats: No Heent: Alopecia: No H/o Inflammatory eye disease (iritis/scleritis): No Hearing loss: No Frequent sinusitis: No Oral ulcers: No Sicca: YES dry eyes Parotid swelling: No Hoarseness: No Dysphagia: No Allergies Heme/lymph: Lymphadenopathy: No Hematological abnormalities (anemia, thrombocytopenia, leukopenia): No Abnormal bleeding: No Skin: Malar or discoid lesions: No Photosensitivity: No Other rashes: No Raynaud's phenomenon: No Hives: No Tightness: No Nodules/bumps: No Easy Bruising: No Nail changes: No H/o psoriasis: No Gastroenterology: Nausea: No Vomiting: No Change in bowel movements: No Heartburn: No IBS. Had C scope one time Respiratory: Dry cough/SOB: No Cardiovascular: Pain in chest: No Musculoskeletal: Per HPI Genitourinary: Vaginal dryness: No Rash/ulcers: No Neurological: Headaches: YES does not drink enough water Sensitivity or pain of hands and/or feet: No Psychiatry: Anxiety: YES Depression: No Poor sleep: YES slept a lot 6-9 hrs, sometimes naps in the mornings H/o loss: No H/o thrombosis: No Increased susceptibility to infection: No PAST MEDICAL HISTORY Diagnosis Date Kidney stones Premature baby 30 week baby Urinary tract infection without hematuria 10/17/2017 PAST SURGICAL HISTORY Procedure Laterality Date EXTRACTION ERUPTED TOOTH/EXR TONSILLECTOMY PRIMARY/SECONDARY Tonsillectomy Current Outpatient Medications Medication Sig doxycycline hyclate (VIBRAMYCIN) 100 mg capsule Take 100 mg by mouth once daily. levocetirizine 5 mg tablet Take 5 mg by mouth once daily. escitalopram oxalate (LEXAPRO) 5 mg tablet FLUCELVAX QUAD 1649-1015, PF, 60 mcg (15 mcg x 4)/0.5 mL injection ondansetron orally disintegrating (ZOFRAN ODT) 4 mg disintegrating tablet ondansetron (ZOFRAN) 4 mg tablet Norgestimate-Ethinyl Estradiol 0.18/0.215/0.25 mg-35 mcg (28) Take by mouth. norgestimate 0.25 mg-ethinyl estradiol 35 mcg (ORTHO-CYCLEN, 28,) 0.25-35 mg-mcg per tablet PILL IS TAKEN CONTINUOUSLY, SKIP PLACEBO PILLS. (Patient taking differently: Pt not taking) aluminum chloride (DRYSOL) 20 % external solution Apply 1 application to affected area daily at bedtime. (Patient taking differently: Apply 1 application to affected area daily at bedtime. Not taking) ibuprofen (MOTRIN) 600 mg tablet Take 1 tablet by mouth every 6 hours as needed. FOR PAIN. tamsulosin ER (FLOMAX) 0.4 mg cap Take 1 capsule by mouth daily at bedtime for 7 days. No current facility-administered medications for this visit. ALLERGIES Allergen Reactions Augmentin [Amoxicil* Unknown Unsure if allergic to this or if it was the hazelnut Bees Anaphylaxis Hazelnut Swelling Tingling in mouth Lactose Intolerance* Vomiting FAMILY HISTORY Problem Relation Age of Onset Hypertension Mother during Hyperlipidemia Mother Heart disease Mother other (osteopenia) Mother No Family History Father Cancer Maternal Grandmother Lung Heart Maternal Grandmother Thyroid Maternal Grandmother Lipids Maternal Grandmother Hypertension Maternal Grandmother Hyperlipidemia Maternal Grandfather Breast Cancer Paternal Grandmother Diabetes Paternal Grandfather Heart Paternal Grandfather Diabetes Other M Great Uncle Breast Cancer Other P Great-grandmother Social History Tobacco Use Smoking status: Never Smokeless tobacco: Never Vaping Use Vaping Use: Never used Substance Use Topics Alcohol use: Yes Comment: once a month, seltzer or liquor Drug use: No Occupation: Employer And 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 BP 116/70 Pulse 86 Temp 36.6 ?C (97.9 ?F) (more content not included)... [facility] 10-04-2022 History of Present illness Narrative Formatting of this note is different fro m the original. 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 Knee pain, right knee clicks, sometimes hurt and could not walk, rarely. No x rays, no injuries. Sometimes rings don't fit. Back pain sometimes in the mornings which she attributes to sleeping wrong. Ankle sprain in high school, better now Skin issues - MRSA vs hidradenitis. Kidney stone issues, stents Family history of autoimmune disease: aunt had hidradenitis ? Boils? Mother has osteopenia Smoking status: Tobacco Use: Never Rheumatology REVIEW OF SYSTEMS: Constitutional: Recent Weight Change: No Fatigue: No Fever: No Night sweats: No Heent: Alopecia: No H/o Inflammatory eye disease (iritis/scleritis): No Hearing loss: No Frequent sinusitis: No Oral ulcers: No Sicca: YES dry eyes Parotid swelling: No Hoarseness: No Dysphagia: No Allergies Heme/lymph: Lymphadenopathy: No Hematological abnormalities (anemia, thrombocytopenia, leukopenia): No Abnormal bleeding: No Skin: Malar or discoid lesions: No Photosensitivity: No Other rashes: No Raynaud's phenomenon: No Hives: No Tightness: No Nodules/bumps: No Easy Bruising: No Nail changes: No H/o psoriasis: No Gastroenterology: Nausea: No Vomiting: No Change in bowel movements: No Heartburn: No IBS. Had C scope one time Respiratory: Dry cough/SOB: No Cardiovascular: Pain in chest: No Musculoskeletal: Per HPI Genitourinary: Vaginal dryness: No Rash/ulcers: No Neurological: Headaches: YES does not drink enough water Sensitivity or pain of hands and/or feet: No Psychiatry: Anxiety: YES Depression: No Poor sleep: YES slept a lot 6-9 hrs, sometimes naps in the mornings H/o loss: No H/o thrombosis: No Increased susceptibility to infection: No PAST MEDICAL HISTORY Diagnosis Date Kidney stones Premature baby 30 week baby Urinary tract infection without hematuria 10/17/2017 PAST SURGICAL HISTORY Procedure Laterality Date EXTRACTION ERUPTED TOOTH/EXR TONSILLECTOMY PRIMARY/SECONDARY <AGE 12 09/02/2003 Tonsillectomy Current Outpatient Medications Medication Sig doxycycline hyclate (VIBRAMYCIN) 100 mg capsule Take 100 mg by mouth once daily. levocetirizine 5 mg tablet Take 5 mg by mouth once daily. escitalopram oxalate (LEXAPRO) 5 mg tablet FLUCELVAX QUAD 9516-7069, PF, 60 mcg (15 mcg x 4)/0.5 mL injection ondansetron orally disintegrating (ZOFRAN ODT) 4 mg disintegrating tablet ondansetron (ZOFRAN) 4 mg tablet Norgestimate-Ethinyl Estradiol 0.18/0.215/0.25 mg-35 mcg (28) Take by mouth. norgestimate 0.25 mg-ethinyl estradiol 35 mcg (ORTHO-CYCLEN, 28,) 0.25-35 mg-mcg per tablet PILL IS TAKEN CONTINUOUSLY, SKIP PLACEBO PILLS. (Patient taking differently: Pt not taking) aluminum chloride (DRYSOL) 20 % external solution Apply 1 application to affected area daily at bedtime. (Patient taking differently: Apply 1 application to affected area daily at bedtime. Not taking) ibuprofen (MOTRIN) 600 mg tablet Take 1 tablet by mouth every 6 hours as needed. FOR PAIN. tamsulosin ER (FLOMAX) 0.4 mg cap Take 1 capsule by mouth daily at bedtime for 7 days. No current facility-administered medications for this visit. ALLERGIES Allergen Reactions Augmentin [Amoxicil* Unknown Unsure if allergic to this or if it was the hazelnut Bees Anaphylaxis Hazelnut Swelling Tingling in mouth Lactose Intolerance* Vomiting FAMILY HISTORY Problem Relation Age of Onset Hypertension Mother during Hyperlipidemia Mother Heart disease Mother other (osteopenia) Mother No Family History Father Cancer Maternal Grandmother Lung Heart Maternal Grandmother Thyroid Maternal Grandmother Lipids Maternal Grandmother Hypertension Maternal Grandmother Hyperlipidemia Maternal Grandfather Breast Cancer Paternal Grandmother Diabetes Paternal Grandfather Heart Paternal Grandfather Diabetes Other M Great Uncle Breast Cancer Other P Great-grandmother Social History Tobacco Use Smoking status: Never Smokeless tobacco: Never Vaping Use Vaping Use: Never used Substance Use Topics Alcohol use: Yes Comment: once a month, seltzer or liquor Drug use: No Occupation: Employer And 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 BP 116/70 Pulse 86 Temp 36.6 C (97.9 F) (Temporal) Resp 10 Ht 147.3 cm (4' 10 ) Wt 79.4 kg (175 lb) LMP 09/24/2022 (Approximate) BMI 36.58 kg/m Physical Exam GENERAL: Well appearing, alert, comfortable, in no acute distress, well-hydrated, well nourished. HEENT: Negative for external ears normal. Canals are clear. Both TMs visualized and are normal. Eye Exam normal. External nose normal, no nasal ulcer or throat ulcer. NECK: NECK Supple, no adenopathy; thyroid symmetric, normal size, no bruits CARDIAC: regular rate and rhythm, No murmur asculated., and Equal peripheral pulses RESPIRATORY: Lungs clear to auscultation. No wheezing, rhonchi, rales VASCULAR: RRR without murmur, gallop, or rubs. No ectopy. ABDOMEN: Soft, non tender. BS active. No masses or organomegaly. LYMPHATIC: Negative for adenopathy in the neck, axillae, groin, supraclavicular and auricular. NEURO: Motor and sensory exam normal MOTOR: Normal; including tone, gait, stressed gait, power and coordination. SKIN: Negative for alopecia, skin rash, malar rash, skin lesion, skin ulcer, pits, thickening, color changes, telangiectasias, nail changes, nail ridging, nail pitting, onycholysis MUSCULOSKELETAL: DIPS: Normal PIPS: Normal MCPs: Normal Wrists: Normal Elbows: Normal Shoulders: Normal C-Spine: Normal Hips: Normal Knees: Normal Ankles: Normal MTPs / Toes: Normal Arches: Normal Summary of old labs/radiology: Review/request of outside labs and imaging: Pertinent labs: Glucose 81 12/24/2018 WBC 8.56 12/24/2018 HGB 13.4 12/24/2018 Platelet Count 268 12/24/2018 Serology: Pertinent imaging: Assessment and Plan (R76.8) Positive JACKI (antinuclear antibody) (primary encounter diagnosis) 22 year old female with anxiety disorder is here for evaluation and management recommendations for positive JACKI> Patient does not have typical clinical features of an autoimmune disease like synovitis, typical rash (malar/discoid/gottron's/heliotrope), objective muscle weakness, uveitis/scleritis, oral/nasal/genital ulcers, scarring alopecia, h/o organ involvement (nephritis, myopericarditis, hematological abnormalities, neuropathies, cerebritis etc) to suggest the presence of an underlying autoimmune disease. Positive JACKI can be non specific. Evaluation with below labs, x rays. Close follow up. She has h/o calcium kidney stones, mother had osteopenia and young age. She thinks that urine calcium was checked. She will ask PCP. Office Visit on 10/04/22 XR KNEE SURVEY ARTHRITIS 1V AP BILATERAL DNA ANTIBODY DS BLD RECEIVING SPECIALIST ANTIBODY BLOOD JEAN BAPTISTE IGG AB SJOGREN ABS SSA/SSB VITAMIN D 25 HYDROXY FERRITIN BLD IRON + TIBC VITAMIN B12 BLOOD URINALYSIS WITH MICROSCOPIC, REFLEX CULTURE CREATININE RANDOM UR PROTEIN RANDOM UR No orders of the defined types were placed in this encounter. No follow-ups on file. Barby Guerin MD documented in this encounter [facility] 06-30-2022 Evaluation + Plan note Diagnostic Tests PendingThyroglobulin 06/30/22 Future Scheduled TestsLipid Profile 05/23/22 [facility] 05-19-2022 Evaluation + Plan note Diagnostic Tests PendingAntinuclear Antibody Screen, Serum 05/19/22 [facility] 11-23-2021 Hospital Discharge instructions Patient Education 11/22/2021 22:56:24 AA Mary Alice MARTINEZ (CUSTOM) Result type:CT Abd/Pelvis w/ IV Contrast Only Result date:November 22, 2021 22:11 EDT Result status:In Progress Result title:CT ABD/PELVIS W/ IV CONTRAST ONLY Performed by:THEODORA SANTOS DO on November 22, 2021 22:09 EDT Cosigned by:THEODORA SANTOS DO Encounter info:[id number], [facility], Emergency, 11/22/2021 - Contributor system:[employer] * Preliminary Report * [id number] ORIGINAL EXAMINATION: CT OF THE ABDOMEN AND PELVIS WITH CONTRAST 11/22/2021 10:11 pm TECHNIQUE: CT of the abdomen and pelvis was performed with the administration of intravenous contrast. Multiplanar reformatted images are provided for review. Dose modulation, iterative reconstruction, and/or weight based adjustment of the mA/kV was utilized to reduce the radiation dose to as low as reasonably achievable. COMPARISON: CT abdomen pelvis 05/19/2021, 12/25/2018 HISTORY: ORDERING SYSTEM PROVIDED HISTORY: Reason for Exam: abdominal pain Right-sided abdominal pain, history of kidney stones FINDINGS: There is no acute osseous abnormality. Included lung bases are clear. The liver, gallbladder, pancreas, spleen and the bilateral adrenal glands are unremarkable. There are symmetric nephrograms. There are multiple bilateral nonobstructive renal calculi which measure up to 3 mm at the left mid kidney and 2 mm at the right mid kidney. There is no hydronephrosis. There are no ureteral calculi. The bladder is under distended which limits evaluation. The uterus is unremarkable. There is a 1.8 cm right corpus luteal cyst. The small bowel is normal caliber without evidence of obstruction or inflammatory change. The large bowel is normal caliber. The appendix is not definitively identified however there is no right lower quadrant or pericecal inflammatory change. There is no free air or free fluid. There are no pathologically enlarged lymph nodes. There are prominent however not pathologically enlarged mesenteric lymph nodes which are similar to the comparison studies dating back to 12/25/2018. The aorta is normal caliber. IMPRESSION: Bilateral nonobstructive renal calculi. Incidental 1.8 cm right corpus luteal cyst, for which no follow-up is recommended. Preliminary Report was Dictated by a Resident Preliminary Report By: Theodora Santos Dictated Time: 11/22/2021 10:30:20 PM Prelim Time: 11/22/2021 10:47:33 PM Ordering Provider: ERYN FARR IMAGE This document has an image Document Released: 08/19/2006 Document Revised: 08/05/2013 Document Reviewed: 08/20/2014 [employer] Patient Information 2015 [employer]. This information is not intended to replace advice given to you by your health care provider. Make sure you discuss any questions you have with your health care provider. 11/22/2021 20:56:35 Dysuria Dysuria Painful urination (dysuria) is often caused by a problem in the urinary tract. Dysuria is pain felt during urination. It is often described as a burning. Learn more about this problem and how it can be treated. What causes dysuria? Possible causes include: Infection with a bacteria or virus such as a urinary tract infection (UTI or a sexually transmitted infection (STI) Sensitivity or allergy to chemicals such as those found in lotions and other products Prostate or bladder problems Radiation therapy to the pelvic area How is dysuria diagnosed? Your healthcare provider will examine you. He or she will ask about your symptoms and health. After talking with you and doing a physical exam, your healthcare provider may know what is causing your dysuria. He or she will usually request a sample of your urine. Tests of your urine, or a urinalysis, are done. A urinalysis may include: Looking at the urine sample (visual exam) Checking for substances (chemical exam) Looking at a small amount under a microscope (microscopic exam) Some parts of the urinalysis may be done in the provider's office and some in a lab. And, the urine sample may be checked for bacteria and yeast (urine culture). Your healthcare provider will tell you more about these tests if they are needed. How is dysuria treated? Treatment depends on the cause. If you have a bacterial infection, you may need antibiotics. You may be given medicines to make it easier for you to urinate and help relieve pain. Your healthcare provider can tell you more about your treatment options. Untreated, symptoms may get worse. When to call your healthcare provider Call the healthcare provider right away if you have any of the following: Fever of 100.4 F (38 C) or higher No improvement after three days of treatment Trouble urinating because of pain New or increased discharge from the vagina or penis Rash or joint pain Increased back or abdominal pain Enlarged painful lymph nodes (lumps) in the groinTh [id number] [employer]. [address] [place] [address]. All rights reserved. This information is not intended as a substitute for professional medical care. Always follow your healthcare professional's instructions. 11/22/2021 20:56:32 Abdominal Pain Abdominal Pain Abdominal pain is pain in the stomach or belly area. Everyone has this pain from time to time. In many cases it goes away on its own. But abdominal pain can sometimes be due to a serious problem, such as appendicitis. So it s important to know when to get help. Causes of abdominal pain There are many possible causes of abdominal pain. Common causes in adults include: Constipation, diarrhea, or gas Stomach acid flowing back up into the esophagus (acid reflux or heartburn) Severe acid reflux, called GERD (gastroesophageal reflux disease) A sore in the lining of the stomach or small intestine (peptic ulcer) Inflammation of the gallbladder, liver, or pancreas Gallstones or kidney stones Appendicitis Intestinal blockage An internal organ pushing through a muscle or other tissue (hernia) Urinary tract infections In women, menstrual cramps, fibroids, ovarian cysts, pelvic inflammatory disease, or endometriosis Inflammation or infection of the intestines, including Crohn's disease and ulcerative colitis Irritable bowel syndrome Diagnosing the cause of abdominal pain Your healthcare provider will give you a physical exam help find the cause of your pain. If needed, you will have tests. Belly pain has many possible causes. So it can be hard to find the reason for your pain. Giving details about your pain can help. Tell your provider where and when you feel the pain, and what makes it better or worse. Also let your provider know if you have other symptoms such as: Fever Tiredness Upset stomach (nausea) Vomiting Changes in bathroom habits Blood in the stool or black, tarry stool Weight loss that you can't explain (involuntary weight loss?) Also report any family history of stomach or intestinal problems, or cancers. Tell your provider about all your alcohol use and drug use. Tell your provider about all medicines you use, including herbs, vitamins, and supplements. Treating abdominal pain Some causes of pain need emergency medical treatment right away. These include appendicitis or a bowel blockage. Other problems can be treated with rest, fluids, or medicines. Your healthcare provider can give you specific instructions for treatment or self-care based on what is causing your pain. If you have vomiting or diarrhea, sip water or other clear fluids. When you are ready to eat solid foods again, start with small amounts of rymi-ms-qchbue, low-fat foods. These include apple sauce, toast, or crackers. When to get medical care Call 911 or go to the hospital right away if you: Can t pass stool and are vomiting Are vomiting blood or have bloody diarrhea or black, tarry diarrhea Have chest, neck, or shoulder pain Feel like you might pass out Have pain in your shoulder blades with nausea Have sudden, severe belly pain Have new, severe pain unlike any you have felt before Have a belly that is rigid, hard, and hurts to touch Call your healthcare provider if you have: Pain for more than 5 days Bloating for more than 2 days Diarrhea for more than 5 days A fever of 100.4 F (38 C) or higher, or as directed by your healthcare provider Pain that gets worse Weight loss for no reason Continued lack of appetite Blood in your stool How to prevent abdominal pain Here are some tips to help prevent abdominal pain: Eat smaller amounts of food at each meal. Don't eat greasy, fried, or other high-fat foods. Don't eat foods that give you gas. Exercise regularly. Drink plenty of fluids. To help prevent GERD symptoms: Quit smoking. Reduce alcohol and foods that increase stomach acid. Don't use aspirin or zlov-qep-woydwlq pain and fever medicines, if possible. This includes nonsteroidal anti-inflammatory drugs (NSAIDs). Lose excess weight. Finish eating at least 2 hours before you go to bed or lie down. Raise the head of your bed. 5437-8733 [employer]. [address] [place] [address], [place] [address]. All rights reserved. This information is not intended as a substitute for professional medical care. Always follow your healthcare professional's instructions. Follow Up Care 11/22/2021 20:46:11 With:Go to emergency room if symptoms worsen Address:Unknown When:2-4 days With:JIANGUMARO PARKINSON Address: [address] [facility] [place] [phone] When:2-4 days [facility] 11-22-2021 Evaluation + Plan note Diagnostic Tests PendingUrine Culture 11/22/21 [facility] 08-31-2021 Evaluation + Plan note Diagnostic Tests PendingCOVID-19 Only (AO) 08/31/21 [facility] 01-26-2021 History of Present illness Narrative DATE OF SERVICE: 01/24/2021 HISTORY OF PRESENT ILLNESS: This is a 21-year-old female who presents today complaining that her ears are clogged. A cursory exam shows that she has cerumen impactions bilaterally. These were removed with irrigation and curettage, and then the patient was evaluated. ALLERGIES: AUGMENTIN. PAST MEDICAL HISTORY: Positive for anemia, asthma, anxiety. HABITS: Nonsmoker. Does occasionally drink alcohol. FAMILY HISTORY: Positive for high blood pressure. SOCIAL HISTORY: Unremarkable. PHYSICAL EXAMINATION: Weight 161.6, blood pressure 125/82, pulse 87, respiratory rate 12, temperature is 97.4, pulse oximetry is 99%. This is a 21-year-old female. Examination shows cerumen occlusions bilaterally. These were removed with irrigation and curettage, and the TM on the right is erythematous at about a 6 out of 10. The left is unremarkable. Oropharynx unremarkable. Heart: Regular rate and rhythm. Lungs are clear. Extremities and neurologic were grossly intact. IMPRESSION: Right otitis media and bilateral cerumen impactions. PLAN: The patient is placed on a Z-Bernabe. Given tramadol 50 mg, number 12, one 3 times a day for 4 days under a code of H66.9. Rest, fluids, finish all medicines. Follow in 7 to 10 days, sooner if complications or problems arise. DO CASSI Cardenas/[id number] SSI File#: [id number] END OF DOCUMENT / CHANGE LOG FOLLOWS Last Edited By [employer]. Signed By Ingrid Arce Lisa D DO #VAULI on 01/29/2021 09:04 ET on 01/29/2021 09:04 ET Revision Number - 2 ^^^ Verified/Reviewed by 01/29/21903 JOMAR [facility] PATIENT NAME: DIEGO ROCK [address] [facility] [address] Isidro MEDICAL REC #: [id number] [place] [address] [facility] REPORT STATCARE PHYSICIAN documented in this encounter [facility] Diagnosis History of UTI- Primary Kidney stone Calculus of kidney Right ureteral calculus Calculus of ureter [facility] Diagnosis Right ureteral calculus Calculus of ureter [facility] Diagnosis Right ureteral calculus Calculus of ureter [facility] Diagnosis Left flank pain- Primary Abdominal pain, unspecified site Kidney stones Calculus of kidney [facility]* Diagnosis Flank pain- Primary Abdominal pain, unspecified site Dysuria Renal calculi Calculus of kidney [facility] Diagnosis Kidney stones- Primary Calculus of kidney [facility] Narrative No data available for this section [facility] Hospital Discharge instructions No data available for this section [facility] Progress note No data available for this section [facility] Reason for referral (narrative)* Diagnostic Procedure Only (Routine) - Pending Review Specialty Diagnoses / Procedures Referred By Contmikie t Referred To Contact XR IMAGING Diagnoses Positive JACKI (antinuclear antibody) Procedures XR KNEE SURVEY ARTHRITIS 1V AP BILATERAL RADIOLOGIC EXAM BOTH KNEES STANDING ANTEROPOST Barby Guerin MD [address] [facility] [address] [place] [address] Xr Imaging Referral ID Status Reason Start Date Expiration Date Visits Requested Visits Authorized [id number] Pending Review Auto-Generat ed Referral 10/04/2022 11/03/2023 1 1 [facility] Summary Purpose Family History No Family History Records FoundNo Family History Records FoundNo Family History Records FoundNo Family History Records FoundNo Family History Records Found No data available for this section No Family History Records Found No data available for this section No Family History Records Found Advance Directives No Advanced Directives Records FoundDocuments on File Type Date 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 Advance Directive(s) 12/24/2018 8:28 PM Additional Source Comments INFORMATION SOURCE (unrecogn ized section and content) DATE CREATED AUTHOR AUTHOR'S ORGANIZ ATION 02/01/2019 [facility] DATE CREATED AUTHOR AUTHOR'S ORGANIZ ATION 07/21/2019 [facility] ([place]) DATE CREATED AUTHOR AUTHOR'S ORGANIZ ATION 10/17/2021 [facility] jordan Torreson DATE CREATED AUTHOR AUTHOR'S ORGANIZ ATION 11/13/2022 [facility] DATE CREATED AUTHOR AUTHOR'S ORGANIZ ATION 06/07/2023 [facility] DATE CREATED AUTHOR AUTHOR'S ORGANIZ ATION 08/28/2023 [facility] ([place]) Source Comments (unrecognize d section and content) In the event this informatio n is protected by the Federal Confidentiality of Alcohol and Drug Abuse Patient Records regulations: The Federal rules restrict any use of the information to criminally investigate or prosecute any alcohol or drug abuse patient.[facility] the event this information is protected by the Federal Confidentiality of Alcohol and Drug Abuse Patient Records regulations: The Federal rules restrict any use of the information to criminally investigate or prosecute any alcohol or drug abuse patient.[facility] the event this information is protected by the Federal Confidentiality of Alcohol and Drug Abuse Patient Records regulations: The Federal rules restrict any use of the information to criminally investigate or prosecute any alcohol or drug abuse patient.[facility] Care Teams (unrecognized sec tion and content) Nurse Quality Relationship Specialty Start Date End Date Gumaro Villar DO PCP - General Family Medicine 10/08/17 Nurse Quality Relationship Specialty Start Date End Date Gumaro Villar DO PCP - General Family Medicine 10/08/17 Nurse Quality Relationship Specialty Start Date End Date Gumaro Villar DO [address] [place] [address] PCP - General 01/19/19 Tank Escobar MD [address] [place] [address] Surgeon Urology 01/23/23 Nurse Quality Relationship Specialty Start Date End Date Gumaro Villar DO [address] [place] [address] PCP - General 01/19/19 Tank Escobar MD [address] [place] [address] Surgeon Urology 01/23/23 Nurse Quality Relationship Specialty Start Date End Date Gumaro Villar DO [address] [place] [address] PCP - General 01/19/19 Tank Escobar MD [address] [place] [address] Surgeon Urology 01/23/23 Nurse Quality Relationship Specialty Start Date End Date Gumaro Villar DO [address] [place] [address] PCP - General 01/19/19 Tank Escobar MD [address] [place] [address] Surgeon Urology 01/23/23 Nurse Quality Relationship Specialty Start Date End Date Gumaro Villar DO [address] [place] [address] PCP - General 01/19/19 Tank Escobar MD [address] [place] [address] Surgeon Urology 01/23/23 Nurse Quality Relationship Specialty Start Date End Date Gumaro Villar DO [address] [place] [address] PCP - General 01/19/19 Tank Escobar MD [address] [place] [address] Surgeon Urology 01/23/23 Nurse Quality Relationship Specialty Start Date End Date Gumaro Villar DO [address] [place] [id number] PCP - General 01/19/19 Tank Escobar MD [address] [place] [address] Surgeon Urology 01/23/23 Care Team (unrecognized sect ion and content) Care Team Personnel Name: GUMARO VILLAR DO Position: P4 Physician - Primary Care Med Service: Active Provider Member Role: Primary Care Physician Address: Address: [address] [place] [id number] [place] [address] Care Team Related Persons Name: BONNIE ROCK Name: DRAKE ROCK Address: Home [address] [place], [place] [id number] Address: Temporary [address] [place], [place] [id number] Name: DC, ELVI Care Team Personnel Name: GUMARO VILLAR DO Position: P4 Physician - Primary Care Member Role: Primary Care Physician Address: Address: [address] [place] [address]- Care Team Related Persons Name: BONNIE ROCK Name: DRAKE ROCK Address: Home [address] [place], [place] [id number] Address: Temporary [address] [place], [place] [id number] Name: DOA ELVI Reason for Visit (unrecogniz ed section and content) Reason Comments Patient Update Reason Comments Nephrolithiasis ER follow up UTI HX of-Taking Keflex, started on 12/24 OTHER Having pain/pressure in bladder and urethra-States Advil alleviates pain Reason Comments Flank Pain Pt to ER for kidney stone. Pt states she was told by urology that she has a 5mm stone. Pt states she started to vomit this morning. Pt states she took a norco prior to coming to ER. Reason Onset Date Comments Appointment Request 02/28/2023 Reason Onset Date Comments Appointment 03/01/2023 Reason Onset Date Comments Other 05/30/2023 Reason Comments Flank Pain Groin Pain Left Reason Onset Date Comments FYI 05/30/2023 Reason Comments Other Saw PCP, ran culture last week, negative growth. Bladder and Urethral pain better, thinks she passed stone Scheduled Active and Recently Administ ered Medications (unrecognized section and content) Scheduled Medication Order 05/29/2023 05/30/2023 05/31/2023 acetaminophen (Tylenol) tablet 650 mg (COMPLETED) 650 mg, Oral, Once, On Sat05/31/23 at 0435, For 1 dose, Maximum dose of acetaminophen is 4000 mg from all sources in 24 hours. 0435 (Given - Provid er: Ritu Staton RN) ibuprofen tablet 600 mg 600 mg, Oral, Once, On Sat05/31/23 at 0140, For 1 dose 0140 (Not Given - Pr ovider: Ritu Staton RN - Reason: Other - Comment: pt states she takes this at home with no relief) ketorolac (Toradol) injection 15 mg (COMPLETED) 15 mg, IntraMUSCular, Once, On Sat05/31/23 at 0150, For 1 dose, In place of ibuprofen PO dose, do not give both 0150 (Given - Provid er: Ritu Staton RN) ondansetron (Zofran) injection 4 mg 4 mg, IntraVENous, Once, On Sat05/31/23 at 0025, For 1 dose 0025 (Not Given - Pr ovider: Ritu Staton RN - Reason: Other) FOR RECORDS PERTAINING TO PATIENTS WHO ARE OR HAVE BEEN ENROLLED IN A CHEMICAL DEPENDENCY/SUBSTANCEABUSE PROGRAM, SOME INFORMATION MAY BE OMITTED. This clinical summary was aggregated from multiple sources. Caution should be exercised in using it in the provision of clinical care. This summary normalizes information from multiple sources, and as a consequence, information in this document may materially change the coding, format and clinical context of patient data. In addition, data may be omitted in some cases. CLINICAL DECISIONS SHOULD BE BASED ON THE PRIMARY CLINICAL RECORDS. [employer] [facility]. provides no warranty or guarantee of the accuracy or completeness of information in this document.
== END | disposition home or self-care (01) ==
LOC: US 16:36
PROVIDERS: Referring Provider Obstetrics & Gynecology; Visit Provider Obstetrics & Gynecology
DX: N94.6 Dysmenorrhea, unspecified (principal)
CPT/HCPCS: 76830

== ENCOUNTER 2023-09-04 06:06 | Emergency (ER) | payer BC, SELFPAY ==
[2023-09-04 06:09] VITALS: BP 130/77; PULSE 98; RESP 18; TEMP 37.3; O2SAT 98; BMI 37.2
[2023-09-04 06:14] VITALS: BP 130/77; PULSE 98; RESP 18; TEMP 37.3; O2SAT 98
--- NOTE | 2023-09-04 06:26 | EX.ED.DYSGE1 ---
HPI History of Present Illness Chief Complaint: Cold Sx Informant: patient Onset/Context/Timing Onset: Days (3 to 4 days) Context: Gradual Onset Narrative Narrative: Patient presents with 3 to 4-day history of cold-like symptoms. She reports some congestion and fevers up to 101. She has a headache. She thinks she may have COVID or the flu. Earlier this morning she developed nausea and vomiting. [facility] Medical History Asthma Depression GERD (gastroesophageal reflux disease) Hidradenitis Kidney stones Urinary tract infection Home Medications sulfamethoxazole 800 mg-trimethoprim 160 mg tablet 1 tab PO Q12H 09/04/23 [History Last Taken Unknown] Allergy/AdvReac Type Severity Reaction Status Date / Time amoxicillin [From Augmentin] Allergy Other Verified 09/04/23 06:08 bee venom protein (honey bee) Allergy Hives Verified 09/04/23 06:08 clavulanic acid Allergy Other Verified 09/04/23 06:08 [From Augmentin] hydromorphone [From Dilaudid] AdvReac Other Verified 09/04/23 06:08 Surgical History History of tonsillectomy History of wisdom tooth extraction, class II edentulism Social History household members: spouse Smoking Status: Never smoker alcohol intake: never substance use type: does not use caffeine: Yes what type of physical activity do you participate in: walking seatbelt use: always do you feel safe at home: Yes 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 [employer] ED Constitutional Constitutional ED: Reports fever(s); Denies chills Eyes Eyes: Denies change in vision or discharge from eye(s) ENT ENT ED: Reports rhinorrhea and other Details: Congestion ; Denies discharge from eye(s) or sore throat Cardiovascular Cardiovascular: Denies chest pain or palpitations Respiratory/Chest Respiratory/Chest: Reports cough; Denies dyspnea Gastrointestinal Gastrointestinal: Reports nausea and vomiting; Denies abdominal pain or diarrhea Genitourinary Genitourinary ED: Denies dysuria Musculoskeletal Musculoskeletal: Denies back pain or extremity pain Integumentary Denies Abrasions or rash Neurologic Neurologic: Reports headache(s); Denies weakness Psychiatric Psychiatric: Denies anxiety or depression Allergic/Immunologic Allergic/Immunologic ED: Denies lip swelling or urticaria EXAM Physical Exam Const Vital Signs: 09/04/23 06:09 09/04/23 06:09 09/04/23 06:14 Temperature 99.2 F H 99.2 F H Temperature Source Oral Oral Pulse Rate 98 98 Respiratory Rate 18 18 Respiratory Effort Short of Breath Blood Pressure 130/77 H 130/77 H Blood Pressure Mean 94 94 Pulse Ox 98 98 Positive well nourished and well developed General Appearance ED: well developed HEENT Reports moist mucous membranes Eyes EOMs intact bilaterally Neck Neck Narrative: No meningismus Chest Wall inspection of chest normal and palpation of chest normal Resp normal respiratory effort and clear to auscultation bilaterally Cardio regular rate and regular rhythm GI non-tender Palpation: soft Extremity normal to inspection Neuro oriented x3 and no sensory deficits noted Motor Exam: strength 5/5 throughout Psych mental status grossly normal Skin no rashes or lesions noted MDM MDM MDM Narrative Medical decision making narrative: IV line established. Patient given Toradol, Reglan, Benadryl. Labwork obtained to evaluate for leukocytosis, anemia, and electrolyte derangement. Swab for COVID and influenza obtained. History & Record Review Discussion w/independent historian: Patient Lab Data Attestation: I reviewed the patient's lab results. Labs: Laboratory Results - last 24 hr 09/04/23 06:27 WBC 8.0 RBC 4.74 Hgb 13.1 Hct 41.7 MCV 88.0 MCH 27.6 MCHC 31.4 L RDW Std Deviation 43.5 RDW Coeff of Mariana 13.3 Plt Count 216 MPV 9.6 Immature Gran % (Auto) 0.300 Neut % (Auto) 73.1 H Lymph % (Auto) 13.3 L [place] % (Auto) 9.3 Eos % (Auto) 3.6 Baso % (Auto) 0.4 Absolute Neuts (auto) 5.8 Absolute Lymphs (auto) 1.06 Nucleated RBC % 0 Sodium 137 Potassium 4.1 Chloride 109 H Carbon Dioxide 24.0 Anion Gap 4 L BUN 11 Creatinine 0.94 Estim Creat Clear Calc 113.63 Est GFR (MDRD) Af Amer 94 Est GFR (MDRD) Non-Af 78 BUN/Creatinine Ratio 11.8 Glucose 114 H Calcium 9.1 Treatment and Re-Evaluation :: COVID test is negative. Influenza test is positive for flu A. CBC was normal white count 8.0 with a hemoglobin of 13.1. 73% neutrophils. Chemistry studies unremarkable. On repeat evaluation patient states her headache is improved. She will be discharged home to continue supportive care. Return instructions provided. Discharge Plan Triage Chief Complaint: Cold Sx ED Provider: Bonnie Lu Dx/Rx/DC Orders Clinical Impression: Influenza A Instructions: ED Influenza (Adult) Prescriptions: No Action sulfamethoxazole-trimethoprim 800-160 mg tablet 1 tab PO Q12H Patient Comments: 09/04 LAST DAY OF MEDS Primary Care Provider: Jocelyn Davis Referrals: Jocelyn Davis DO [Primary Care Provider] - 1-2 Weeks Disposition Disposition: Home, Self Care
[2023-09-04] MEDS: 0.9% Normal Saline (1000mL) 1,000 ML 1000 ML IV (06:30)
[2023-09-04] MEDS: Ketorolac 30 MG/ML Syringe IV (06:30)
[2023-09-04] MEDS: DiphenhydrAMINE 50 MG/ML Syringe 25 MG IV (06:30)
[2023-09-04] MEDS: Metoclopramide 10 MG/2 ML Vial 5 MG IV (06:30)
[2023-09-04 06:33] LABS: Absolute Lymphocyte Count 1.06 X10^3/uL (0.83-4.51); Absolute Neutrophil Count 5.8 X10^3/uL (2.0-7.7); Basophil# 0.03 X10^3/uL; Basophil% 0.4 % (0-1); Eosinophil# 0.29 X10^3/uL; Eosinophils% 3.6 % (0-5); Hematocrit 41.7 % (37-47); Hemoglobin 13.1 g/dL (12.0-15.0); Lymphocyte # 1.06 X10^3/ul (0.83-4.51); Lymphocyte % 13.3 % (19-41); Mean Corp Hgb Conc 31.4 g/dL (32-36); Mean Corpuscular Hgb 27.6 pg (27.0-32.0); Mean Platelet Vol. 9.6 fl (6.2-12.0); Monocyte# 0.74 X10^3/uL; Monocyte% 9.3 % (0-10); NRBC Flagged by Analyzer 0 % (0-5); Neutrophil # 5.84 X10^3/uL (2.7-7.7); Neutrophil % 73.1 % (47-70); Platelet Count 216 K/mm3 (150-450); RBC Distribution Width CV 13.3 % (11.6-14.6); RBC Distribution Width SD 43.5 fl (35.1-43.9); Red Blood Count 4.74 M/mm3 (4.2-5.4)
--- OUTSIDE RECORDS SUMMARY | 2023-09-04 06:50 | XMS RPT_ITS | CCD ---
Author Name Unknown Address [address] [place] [address] Organization [facility] Care Team Providers Care Web Operations Specialist Name Role Phone VALERIE VAIL Attending Unavailable IMCA Referring Unavailable IMCA Primary Care Unavailable IMJUAN Primary Care Unavailable RYLIE REGAN Attending Unavailable JIAN MCFARLAND, DR NAIK Primary Care Physician [phone] Gumaro Villar DO Primary Care Provider DR GUMARO VILLAR DO Primary Care Physician [phone] Gumaro Villar DO Primary Care Provider BARBY GUERIN Attending Unavailable GUMARO VILLAR Primary Care Unavailable Gumaro Villar DO Primary Care Provider [phone] Tank Escobar MD Unavailable Gumaro Villar DO Primary Care Provider [phone] Tank Escobar MD Unavailable STEVE NOWAK Primary Care [facility] GUMARO VILLAR Primary Care Unavailable DAT LOGAN [...] Referring Unavailable GUMARO VILLAR Primary Care Unavailable OMAR BARROS Attending Unavailabl e DEBBY TOWEL ROLLING MACHINE OPERATOR-RADIOLOGY RECEPTIONIST, STEVE A Primary Care Un available JAZ KAUFMAN-RADIOLOGY RECEPTIONIST, TUCKER Yadav Attending Margarita GUARDADO APRN-RADIOLOGY RECEPTIONIST, STEVE A Primary Care Un available DEBBY KAUFMAN-PRASANTH, STEVE A Primary Care Un available SAKSHI ROSSI DO Attending Unavailable JAZ COLEMANN-RADIOLOGY RECEPTIONIST, TUCKER Yadav Attending Margarita GUARDADO APRN-RADIOLOGY RECEPTIONIST, STEVE A Primary Care Un available Allergies Allergy Classification Reported Allergen(s) Allergy Type Date of Onset Reaction(s) Facility (5 sources) Bee; Translations: [BEES] Propensity to adverse reactions (disorder) 3 Anaphylaxis [facility] Repository (5 sources) Hazelnut; Translations: [HAZELNUT] Propensity to adverse reactions (disorder) 8 Swelling [facility] Repository (5 sources) Lactase; Translations: [LACTASE] Drug Allergy 3 Vomiting [facility] Repository (20 sources) AMOXICILLIN-POT CLAVULANATE; Translations: [AMOXICILLIN-PO T CLAVULANATE] Propensity to adverse reactions (disorder) 8 Unknown, Anaphylaxis [facility] Repository (7 sources) Amoxicillin / Clavulanate; Translations: [amoxicillin-cl avulanate] Drug Allergy swollen tongue, edema, TONGUE SWELLING [facility] (7 sources) Bee/Wasp/Ant venom Allergy to substance Swelling (morphologic abnormality) [facility] (7 sources) Cat Allergy to substance sweling, itching [facility] (7 sources) Dog Allergy to substance Unknown [facility] (20 sources) HYDROmorphone; Translations: [hydromorphone] Drug Allergy 9 Syncope (disorder) [facility] (5 sources) Hazelnut Food allergy tingly tongue [facility] (5 sources) Walnuts Food allergy tingly tongue [facility] (1 source) Cat Hair Extract Propensity to adverse reactions [address] [facility] (15 sources) Corylus Allergy to substance [address] [facility] (14 sources) Cat Hair Extract Drug Allergy [address] [facility] Medications Current Medications Medication Drug Class(es) Dates Sig (Normalized) Sig (Original) albuterol MDI (90 mcg/inh) [facility] free inhalation aerosol (7 sources) Start: 08-29-2021 take 2 puff(s) by inhalation every four hours as needed for wheezing albuterol MDI (90 mcg/inh) CFC free inhalation aerosol 2 puff(s), Inhalation, q4h, PRN as needed for wheezing, # 18 gram(s), 0 Refill(s), Pharmacy: [facility]/pharmacy #[id number], Cough History of asthma, 144.8, cm, 08/09/21 14:45:00 EST, Height, kg, 08/29/21 13:43:00 EST, Dosing Weight Start Date: 08/29/21 Status: Ordered Fara-Acton Plus Cold Formula (1 source) Start: 08-29-2021 Fara-Acton Plus Cold Formula See Instructions, Oral q4h, 0 Refill(s) Start Date: 08/29/21 Status: Ordered busPIRone hydrochloride 5 mg oral tablet (1 source) Start: 05-11-2022 End: 08-09-2022 busPIRone 5 mg oral tablet Dose : 5 mg = 1 tab(s), Oral, BID, # 180 tab(s), 0 Refill(s), Pharmacy: [facility]/pharmacy #[id number], Well adult exam Fatigue, 144.8, cm, [...] 06-04-2023 08:09-0400 Body height 144.8 cm Robinson [employer] Work Phone: [facility] 06-04-2023 08:09-0400 Body mass index (BMI) [Ratio] 35.27 kg/m2 [employer] Work Phone: [facility] 06-04-2023 08:09-0400 Body weight 73.94 kg Robinson [employer] Work Phone: [facility] 06-04-2023 08:09-0400 Diastolic blood pressure 85 mm[Hg] Arturotoselina [employer] Work Phone: [facility] 06-04-2023 08:09-0400 Heart rate 101 /min Robinson [employer] Work Phone: [facility] 06-04-2023 08:09-0400 Systolic blood pressure 125 mm[Hg] Arturotoselina [employer] Work Phone: [facility] 05-31-2023 03:13-0400 Diastolic blood pressure 71 mm[Hg] Dat Logan DO Work Phone: [facility] [employer] 05-31-2023 03:13-0400 Heart rate 90 /min Dat Logan DO Work Phone: [facility] [employer] 05-31-2023 03:13-0400 Respiratory rate 16 /min Dat Logan DO Work Phone: [facility] [employer] 05-31-2023 03:13-0400 SaO2% (BldA) [Mass fraction] 98 % Dat Logan DO Work Phone: [facility] [employer] 05-31-2023 03:13-0400 Systolic blood pressure 120 mm[Hg] Dat Logan DO Work Phone: [facility] [employer] 05-30-2023 23:03-0400 Body temperature 98.8 [degF] Dat Logan DO Work Phone: [facility] [employer] 05-30-2023 20:38-0400 Body height 144.8 cm Dat Logan DO Work Phone: [facility] [employer] 05-30-2023 20:38-0400 Body mass index (BMI) [Ratio] 35.06 kg/m2 Dat Logan DO Work Phone: [facility] [employer] 05-30-2023 20:38-0400 Body weight 73.48 kg Dat Logan DO Work Phone: [facility] [employer] 02-28-2023 16:53-0400 Diastolic blood pressure 81 mm[Hg] Abby Muñoz DO Work Phone: [facility] [employer] 02-28-2023 16:53-0400 Heart rate 103 /min Abby Muñoz DO Work Phone: [facility] [employer] 02-28-2023 16:53-0400 Respiratory rate 20 /min Abby Muñoz DO Work Phone: [facility] [employer] 02-28-2023 16:53-0400 SaO2% (BldA) [Mass fraction] 97 % Abby Muñoz DO Work Phone: [facility] [employer] 02-28-2023 16:53-0400 Systolic blood pressure 120 mm[Hg] Abby Contrerasy DO Work Phone: [facility] [employer] 02-28-2023 10:30-0400 Body mass index (BMI) [Ratio] 32.32 kg/m2 Abby Contrerasy DO Work Phone: [facility] [employer] 02-28-2023 10:30-0400 Body temperature 96.8 [degF] Abby Muñoz DO Work Phone: [facility] [employer] 02-28-2023 10:30-0400 Body weight 72.58 kg Abby Muñoz DO Work Phone: [facility] [employer] 01-30-2023 16:31-0400 Body height 149.9 cm Tank Escobar MD Work Phone: [facility] [employer] 01-30-2023 16:31-0400 Body mass index (BMI) [Ratio] 27.27 kg/m2 Tank Escobar MD Work Phone: [facility] [employer] 01-30-2023 16:31-0400 Body weight 61.24 kg Tank Escobar MD Work Phone: [facility] [employer] 01-30-2023 16:31-0400 Diastolic blood pressure 82 mm[Hg] Tank Escobar MD Work Phone: [facility] [employer] 01-30-2023 16:31-0400 Heart rate 98 /min Tank Escobar MD Work Phone: [facility] [employer] 01-30-2023 16:31-0400 Systolic blood pressure 130 mm[Hg] Tank Escobar MD Work Phone: [facility] [employer] 10-04-2022 08:31-0500 Body height 147.3 cm Barby Guerin MD Work Phone: [facility] 10-04-2022 08:31-0500 Body temperature 97.9 [degF] Barby Guerin MD Work Phone: [facility] 10-04-2022 08:31-0500 Body weight 79.38 kg Barby Guerin MD Work Phone: [facility] 10-04-2022 08:31-0500 Diastolic blood pressure 70 mm[Hg] Barby Guerin MD Work Phone: [facility] 10-04-2022 08:31-0500 Heart rate 86 /min Barby Guerin MD Work Phone: [facility] 10-04-2022 08:31-0500 Respiratory rate 10 /min Barby Guerin MD Work Phone: [facility] 10-04-2022 08:31-0500 Systolic blood pressure 116 mm[Hg] Barby Guerin MD Work Phone: [facility] 11-22-2021 22:52-0400 Diastolic blood pressure 69 mm[Hg] ERYN REICHFIELD DO [facility] 11-22-2021 22:52-0400 Heart rate 104 /min ERYN REICHFIELD DO [facility] 11-22-2021 22:52-0400 Respiratory rate 16 /min ERYN REICHFIELD DO [facility] 11-22-2021 22:52-0400 Systolic blood pressure 107 mm[Hg] ERYN REICHFIELD DO [facility] 11-22-2021 22:28-0400 Diastolic blood pressure 79 mm[Hg] ERYN REICHFIELD DO [facility] 11-22-2021 22:28-0400 Heart rate 104 /min ERYN REICHFIELD DO [facility] 11-22-2021 22:28-0400 Respiratory rate 18 /min ERYN REICHFIELD DO [facility] 11-22-2021 22:28-0400 Systolic blood pressure 111 mm[Hg] ERYN REICHFIELD DO [facility] 11-22-2021 21:32-0400 Heart rate 114 /min ERYN REICHFIELD DO [facility] 11-22-2021 21:32-0400 Respiratory rate 20 /min ERYN REICHFIELD DO [facility] 11-22-2021 20:53-0400 Body height 144.8 cm ERYN REICHFIELD DO [facility] 11-22-2021 20:53-0400 Body temperature 98.6 [degF] ERYN REICHFIELD DO [facility] 11-22-2021 20:53-0400 Body weight 75 kg ERYN REICHFIELD DO [facility] 11-22-2021 20:53-0400 Diastolic blood pressure 74 mm[Hg] ERYN REICHFIELD DO [facility] 11-22-2021 20:53-0400 Mean blood pressure 90 mm[Hg] ERYN REICHFIELD DO [facility] 11-22-2021 20:53-0400 Systolic blood pressure 121 mm[Hg] ERYN FARR DO [facility] Encounters Encounter Date Encounter Type Care Provider Facility Start: 08-28-2023 End: 08-29-2023 ambulatory TUCKER SEBASTIAN TOWEL ROLLING MACHINE OPERATOR-RADIOLOGY RECEPTIONIST Facility:B Start: 08-22-2023 End: 08-27-2023 ambulatory TUCKER SEBASTIAN TOWEL ROLLING MACHINE OPERATOR-RADIOLOGY RECEPTIONIST Facility:B Start: 08-22-2023 End: 08-26-2023 Outreach Lab TUCKER SEBASTIAN TOWEL ROLLING MACHINE OPERATOR-RADIOLOGY RECEPTIONIST [facility] Start: 06-04-2023 End: 06-04-2023 ambulatory [facility] Start: 06-04-2023 End: 06-04-2023 Office outpatient visit 15 minutes [facility] TOWEL ROLLING MACHINE OPERATOR - RADIOLOGY RECEPTIONIST Work Phone: [facility] Procedures Date Procedure Procedure Detail Performing [...] Basic metabolic pane l calcium total Ray BOLANOS-C Work Phone: Start: 02-28-2023 Us retroperitoneal r eal time w/image complete Ray Rajput PA-C Work Phone: Start: 02-28-2023 Radiologic exam abdo men 1 view Ray BOLANOS-C Work Phone: Start: 02-28-2023 Blood count complete auto&auto difrntl wbc Ray Atiya CHOWDHURY Work Phone: Start: 02-28-2023 Urinalysis complete panel - Urine Raysaskia Rajput PA-C Work Phone: Start: 02-28-2023 Urnls dip stick/tabl et reagent auto microscopy Ray Atiya CHOWDHURY Work Phone: Start: 02-16-2023 Us retroperitoneal r eal time w/image complete Tank Escobar MD Work Phone: Start: 09-02-2003 Tonsillectomy VINNIE PORTILLO TOWEL ROLLING MACHINE OPERATOR-RADIOLOGY RECEPTIONIST Tonsillectomy VINNIE LORRAO TOWEL ROLLING MACHINE OPERATOR-RADIOLOGY RECEPTIONIST Plan of Treatment Date Care Activity Detail Author Start: 2049 Zoster Vaccines (1 of 2) Zoster Vaccines (1 of 2) [facility] Start: 02-18-2030 DTaP/Tdap/Td Vaccines (8 - Td or Tdap) DTaP/Tdap/Td Vaccines (8 - Td or Tdap) [facility] Start: 11-27-2023 End: 11-27-2023 Patient encounter procedure 11/27/2023 4:00 PM EDT Office Visit [facility] [address] [place] [id number] Tank Escobar MD [address] [place] [phone] [facility] Start: 06-04-2023 End: 06-04-2023 Patient encounter procedure 06/04/2023 8:00 AM EDT Office Visit [facility] [address] [place] [phone] Robinson Lopes, TOWEL ROLLING MACHINE OPERATOR - RADIOLOGY RECEPTIONIST [address] [place], [place] [id number] [facility] Start: 05-03-2023 Influenza vaccination [facility] Start: 04-03-2023 End: 04-03-2023 Telemedicine consultation with patient 04/03/2023 3:50 PM EDT Telemedicine [facility] [address] [place] [address] Tank Escobar MD [address] [place] [address] [facility] Start: 02-20-2023 End: 02-20-2023 Patient encounter procedure 02/20/2023 2:30 PM EDT Office Visit [facility] [address] [place] [address] Tank Escobar MD [address] [place] [address] [facility] Start: 02-16-2023 End: 02-16-2023 Patient encounter procedure 02/16/[address] [facility] [address] [facility] Start: 01-30-2023 End: 01-31-2024 US Retroperitoneum US retroperitoneum Imaging Routine Right ureteral calculus Expected: 01/30/2023, Expires: 01/31/[address] [facility] Immunizations Immunization Date Immunization Notes Care Provider Fa [facility] 07-01-2021 SARS-CoV-2 mRNA (tozinameran) vaccine STEVE GUARDADO TOWEL ROLLING MACHINE OPERATOR-RADIOLOGY RECEPTIONIST [facility] 06-10-2021 SARS-CoV-2 mRNA (tozinameran) vaccine STEVE GUARDADO TOWEL ROLLING MACHINE OPERATOR-RADIOLOGY RECEPTIONIST [facility] 02-19-2020 tetanus toxoid, redu randolph diphtheria toxoid, and acellular pertussis vaccine, adsorbed; Translations: [Boostrix (Tdap)] VINNIE MORRIS TOWEL ROLLING MACHINE OPERATOR-RADIOLOGY RECEPTIONIST [facility] 06-25-2019 influenza virus vacc ine, unspecified formulation VINNIE M[place]RIS TOWEL ROLLING MACHINE OPERATOR-RADIOLOGY RECEPTIONIST [facility] 06-19-2018 influenza virus vacc ine, unspecified formulation VINNIE M[place]RIS TOWEL ROLLING MACHINE OPERATOR-RADIOLOGY RECEPTIONIST [facility] 10-06-2017 influenza virus vacc ine, unspecified formulation VINNIE GONZALEZRAO TOWEL ROLLING MACHINE OPERATOR-RADIOLOGY RECEPTIONIST [facility] 10-06-2017 FLUCELVAX QUAD [id number], PF, 60 mcg (15 mcg x 4)/0.5 mL injection Ingrid Claude MCFARLAND Work Phone: [facility] 07-11-2015 influenza virus vacc ine, unspecified formulation VINNIE ALEXANDRA TOWEL ROLLING MACHINE OPERATOR-[facility] 09-29-2013 meningococcal polysaccharide (groups A, C, Y and W-135) diphtheria toxoid conjugate vaccine (MCV4P) VINNIE M[place]RIS TOWEL ROLLING MACHINE OPERATOR-[facility] 12-11-2012 hepatitis B vaccine, unspecified formulation Barby Guerin MD Work Phone: [facility] 06-20-2012 influenza virus vacc ine, unspecified formulation VINNIE GONZALEZRAO TOWEL ROLLING MACHINE OPERATOR-RADIOLOGY RECEPTIONIST [facility] 06-14-2011 influenza virus vacc ine, unspecified formulation VINNIE ALEXANDRA TOWEL ROLLING MACHINE OPERATOR-RADIOLOGY RECEPTIONIST [facility] 08-22-2010 tetanus toxoid, redu randolph diphtheria toxoid, and acellular pertussis vaccine, adsorbed VINNIE M[place]RIS TOWEL ROLLING MACHINE OPERATOR-RADIOLOGY RECEPTIONIST [facility] 06-16-2010 influenza virus vacc ine, unspecified formulation VINNIE M[place]RIS TOWEL ROLLING MACHINE OPERATOR-RADIOLOGY RECEPTIONIST [facility] 02-25-2004 diphtheria, tetanus toxoids and acellular pertussis vaccine, unspecified formulation VINNIE M[place]RIS TOWEL ROLLING MACHINE OPERATOR-RADIOLOGY RECEPTIONIST [facility] 02-25-2004 measles/mumps/rubell a virus vaccine VINNIE GONZALEZRAO TOWEL ROLLING MACHINE OPERATOR-RADIOLOGY RECEPTIONIST [facility] 02-25-2004 poliovirus vaccine, inactivated VINNIE GONZALEZRAO TOWEL ROLLING MACHINE OPERATOR-RADIOLOGY RECEPTIONIST [facility] 10-28-2000 diphtheria, tetanus toxoids and acellular pertussis vaccine, unspecified formulation VINNIE GONZALEZRAO TOWEL ROLLING MACHINE OPERATOR-RADIOLOGY RECEPTIONIST [facility] 10-28-2000 haemophilus influenz ae type b vaccine, PRP-T conjugate VINNIE GONZALEZRAO TOWEL ROLLING MACHINE OPERATOR-RADIOLOGY RECEPTIONIST [facility] 02-01-2000 hepatitis B pediatri c vaccine VINNIE GONZALEZRAO TOWEL ROLLING MACHINE OPERATOR-RADIOLOGY RECEPTIONIST [facility] 02-01-2000 measles/mumps/rubell a virus vaccine VINNIE GONZALEZRAO TOWEL ROLLING MACHINE OPERATOR-RADIOLOGY RECEPTIONIST [facility] 02-01-2000 poliovirus vaccine, inactivated VINNIE ALEXANDRA TOWEL ROLLING MACHINE OPERATOR-RADIOLOGY RECEPTIONIST [facility] 1999 diphtheria, tetanus toxoids and acellular pertussis vaccine, unspecified formulation VINNIE M[place]RIS TOWEL ROLLING MACHINE OPERATOR-RADIOLOGY RECEPTIONIST [facility] 1999 haemophilus influenz ae type b vaccine, PRP-OMP conjugate VINNIE M[place]RIS TOWEL ROLLING MACHINE OPERATOR-RADIOLOGY RECEPTIONIST [facility] 1999 diphtheria, tetanus toxoids and acellular pertussis vaccine, unspecified formulation VINNIE M[place]RIS TOWEL ROLLING MACHINE OPERATOR-RADIOLOGY RECEPTIONIST [facility] 1999 haemophilus influenz ae type b vaccine, PRP-OMP conjugate VINNIE M[place]RIS TOWEL ROLLING MACHINE OPERATOR-RADIOLOGY RECEPTIONIST [facility] 1999 poliovirus vaccine, inactivated VINNIE M[place]RIS TOWEL ROLLING MACHINE OPERATOR-RADIOLOGY RECEPTIONIST [facility] 1999 diphtheria, tetanus toxoids and acellular pertussis vaccine, unspecified formulation VINNIE M[place]RIS TOWEL ROLLING MACHINE OPERATOR-RADIOLOGY RECEPTIONIST [facility] 1999 haemophilus influenz ae type b vaccine, PRP-T conjugate VINNIE M[place]RIS TOWEL ROLLING MACHINE OPERATOR-RADIOLOGY RECEPTIONIST [facility] 1999 poliovirus vaccine, inactivated VINNIE M[place]RIS TOWEL ROLLING MACHINE OPERATOR-RADIOLOGY RECEPTIONIST [facility] 1999 hepatitis B pediatri c vaccine VINNIE GONZALEZRAO TOWEL ROLLING MACHINE OPERATOR-RADIOLOGY RECEPTIONIST [facility] Payers Date Payer Category Payer Unknown [id number] 2020 Unknown [id number] 2016 Unknown [employer] PPO OOS [id number] 2016-Present [phone] [address] [place] [address] PPO [id number] 1999 Unknown [id number] 1999 Unknown [id number] 1999 Unknown [id number] 1999 Unknown [id number] 1999 Unknown [id number] 1999 Unknown [id number] Social History Date Type Detail Facility Start: 06-10-2019 End: 10-04-2022 Never smoked tobacco (finding) [facility] Clinical Notes 01-26-2021 to 08-26-2023 LaboratoryRadiologyThapaMANDEEP Gutierrez CNP - 06/04/2023 8:00 AM EDTTelephone MANDEEP Murphy [...] Locations *1: This test was performed at: [facility], [address] [place] [address], [id number] , [facility] ([place]) 08-22-2023 Evaluation + Plan note Future Scheduled TestsQFT-TB Plus (Client Incubated) 08/22/23Serum test 12/13/22Varicella Zoster Antibody 08/22/23XR Chest 2 Views (PA & Lateral) 01/09/23 [facility] 06-04-2023 History of Present illness Narrative Formatting of this note is different fro m the original. Images from the original note were not included. Robinson Lopes APRN - PRASANTH 06/04/2023 at 8:30 AM Urology Office Visit [...] feels better today Patient rates the pain / Patient stopped taking ATB due to negative [...] at 8:30 AM documented in this encounter [facility] [employer] 05-31-2023 Telephone encounter Note Formatting of this note might be differe nt from the original. Noted closing encounter [employer] Work Phone: 05-31-2023 Miscellaneous Notes Formatting of this note might be differe nt from the original. Noted closing encounter Name of caller: Bonnie Contact phone number: [phone] Relationship to Patient: family member mother Provider: [...] their call: No documented in this encounter [facility] 05-31-2023 Hospital Discharge instructions Toan Vidal PA-C - 05/31/2023 4:18 AM EDT Take Keflex as prescribed. Follow-up with urology. Please follow up with your PCP in 2-3 days. Return to the emergency department if new or worsening symptoms develop. The following attachments cannot be sent through Care Everywhere.Flank Pain ED (Sammarinese)documented in this encounter [facility] 05-31-2023 Emergency department Note Formatting [...] Staton RN 05/31/23222 Ritu Staton RN 05/31/[address] [facility] 05-31-2023 Emergency department Note Formatting [...] Ritu Staton RN 05/31/23222 Ritu Staton RN 05/31/239 Upon entry into the room with ordered [...] fever or chills. documented in this encounter [facility] 05-31-2023 Emergency department Note Formatting [...] for Toradol. Paulo Gaston RN 05/31/[address] [facility] 05-31-2023 Emergency department Note Formatting [...] notified. Paulo Gaston RN 05/31/[address] [facility] 05-31-2023 Emergency department Note Formatting of this note might be differe nt from the original. ED charge nurse notified of unsuccessful PIV insertion attempt, who suggests that ordered medications be administered via a different route than IV. Patient offered medications via IM and PO as appropriate but replies I'd rather get an IV . Paulo Gaston RN 05/31/[address] [facility] 05-31-2023 Emergency department Note Formatting of this note might be differe nt from the original. Attempted PIV insertion one time, without success. Patient states US guidance was previously used to obtain PIV and requests that to be used. Appropriate staff notified. Paulo Gaston RN 05/31/[address] [facility] 05-30-2023 Emergency department Triage note Formatting of this note might be differe nt from the original. Patient complaining of left flank and groin pain for 5-6 days. Pain is non radiating. Pain alternates from front to back. History of kidney stones. Complaining of dysuria and frequency. Patient complaining of retention. Denies Hematuria. Patient denies fever or chills. T [facility] 05-30-2023 Physician Emergency department Note Formatting of this note might be differe nt from the original. Emergency Department Encounter [facility] [...] [employer] Dat Logan DO 05/31/23 0432 [employer] Phone: 05-30-2023 Telephone encounter Note Formatting of this note might be differe nt from the original. Name of caller: Bonnie Contact phone number: [phone] Relationship to Patient: family member mother Provider: [...] business hours to return their call: No [facility] 05-30-2023 Note If pt is in severe p ain with a negative urine culture recommend further evaluation in the ER to rule out obstructing stone. [facility] 05-30-2023 Telephone encounter Note Formatting of this note might be differe nt from the original. Spoke with Bonnie given Aishwarya's message verbatim. Bonnie verbalized understanding and have no further questions or concerns at this time. [facility] 05-30-2023 Miscellaneous Notes Formatting of [...] 06/04/23. Please advise documented in this encounter [facility] 05-30-2023 Telephone encounter Note Formatting of this note might be differe nt from the original. LVM for Bonnie to call the office. [facility] 05-30-2023 Telephone encounter Note Formatting of this note might be differe nt from the original. If pt is in severe pain with a negative urine culture recommend further evaluation in the ER to rule out obstructing stone. [facility] [employer] Work Phone: 05-30-2023 Telephone encounter Note Formatting [...] any better. Patient is scheduled to see [facility] on 06/04/23. Please advise [facility] 05-29-2023 Note . MICRO - [...] Locations *1: This test was performed at: [facility], [address] [place] [address], [id number] , [facility] ([place]) 03-18-2023 Telephone encounter Note Formatting of this note might be differe nt from the original. Pt has an appt scheduled. Closing encounter [facility] 03-18-2023 Miscellaneous Notes Formatting of this note might be differe nt from the original. Pt has an appt scheduled. Closing encounter Requesting status of ED follow up appt. Please advise. Name of Caller: Bonnie Contact Reason for Appointment: Pt is asking to be seen for a hosp follow up Office Name: Uro Medication Refills need, if any: n/a Medication Name: n/a documented in this encounter [facility] 03-18-2023 Telephone encounter Note Formatting of this note might be differe nt from the original. Pt has an appt scheduled. Closing encounter [facility] 03-18-2023 Miscellaneous Notes Formatting of this note might be differe nt from the original. Pt has an appt scheduled. Closing encounter Secure Chat request received to schedule a follow up for Kidney stones and left flank pain. Please contact patient [phone]. documented in this encounter [facility] 03-04-2023 Telephone encounter Note Formatting of this note might be differe nt from the original. Requesting status of ED follow up appt. Please advise. [facility] 03-01-2023 Telephone encounter Note Formatting of this note might be differe nt from the original. Name of Caller: Bonnie Contact Reason for Appointment: Pt is asking to be seen for a hosp follow up Office Name: Uro Medication Refills need, if any: n/a Medication Name: n/a [facility] 02-28-2023 Telephone encounter Note Formatting of this note might be differe nt from the original. Secure Chat request received to schedule a follow up for Kidney stones and left flank pain. Please contact patient [phone]. [facility] 02-28-2023 Miscellaneous Notes Formatting of this note might be differe nt from the original. Secure Chat request received to schedule a follow up for Kidney stones and left flank pain. Please contact patient [phone]. documented in this encounter [facility] 02-28-2023 Hospital Discharge instructions Ray Rajput PA-C - 02/28/2023 4:28 PM EDT Given your antibiotic allergies we will choose an antibiotic based on your culture results rather than starting one now. We are working with [facility] to schedule you close follow up with urology. The following attachments cannot be sent through Care Everywhere.Renal Colic (Sammarinese)documented in this encounter [facility] 02-28-2023 Emergency department Note Formatting [...] improving but worsening again yesterday. She tried [place] and Azo without much improvement. Has had [...] Culture. Procedure Abnormality Status --------- ------ Complete Urinalysis[[id number]] Abnormal Final result Please view results for [...] notes and medical records reviewed, she saw [facility] urology on 02/20/2023 for bilateral renal calculi, [...] symptoms. Patient recommended to continue home ibuprofen, [place], Azo. We will follow-up regarding her urine culture to decide on antibiotics. Patient discharged in stable improved condition with follow-up. PROCEDURES: Unless otherwise noted below, none Procedures FINAL IMPRESSION 1. Left flank pain 2. Kidney stones DISPOSITION Discharge 02/28/2023 04:24:32 PM PATIENT REFERRED TO: Tank Escobar MD [address] [place] [address] [address] [facility] [address] DISCHARGE MEDICATIONS: Discharge Medication List as [...] Emergency Medicine Provider Ray Rajput PA-C 02/28/23 [id number] documented in this encounter [facility] 02-28-2023 Physician Emergency department Note [...] improving but worsening again yesterday. She tried [place] and Azo without much improvement. Has had [...] Culture. Procedure Abnormality Status --------- ------ Complete Urinalysis[[id number]] Abnormal Final result Please view results for [...] notes and medical records reviewed, she saw [facility] urology on 02/20/2023 for bilateral renal calculi, [...] symptoms. Patient recommended to continue home ibuprofen, [place], Azo. We will follow-up regarding her urine culture to decide on antibiotics. Patient discharged in stable improved condition with follow-up. PROCEDURES: Unless otherwise noted below, none Procedures FINAL IMPRESSION 1. Left flank pain 2. Kidney stones DISPOSITION Discharge 02/28/2023 04:24:32 PM PATIENT REFERRED TO: Tank Escobar MD [address] [place] [phone] DISCHARGE MEDICATIONS: Discharge Medication List as [...] Emergency Medicine Provider Ray Rajput PA-C 02/28/23 [id number] 01-30-2023 History of Present illness Narrative Formatting [...] office due to recent stone- Was in [place] ED for right flank pain. 3mm right [...] in a day. She had imaging in [place] and brought the disc today but unable [...] stone in urine strainer Got KUB in [place] showing 3mm right pelvic calcification as well [...] follow up appt) 06/21/22 Visit with Caroline SBennett H/o urolithiasis, has not needed surgical intervention. Also has a known h/o UTIs. 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 She drinks a lot of seltzer water, and also water and 1 cup of coffee typically in a day. She had imaging in [place] and brought the disc today but unable [...] kub, renal ultrasound. KUB, Renal US at [place]. Tank Escobar MD 01/30/23 5:05 PM documented in this encounter [facility] 01-24-2023 Note . MICRO - Microbiology PROCEDURE: Urine Culture [*1] SOURCE: Urine BODY SITE: COLLECTED DATE/TIME: 01/23/2023 00:55 EDT RECEIVED DATE/TIME: 01/23/2023 15:14 EDT START DATE/TIME: 01/23/2023 15:14 EDT FREE TEXT SOURCE: FINAL REPORTS Final Report [] Verified Date/Time/Personnel: 01/24/2023 14:17 EDT 50,000 - 100,000 cfu/ml Mixed growth consistent with normal urogenital gisselle. Performing Locations *1: This test was performed at: [facility], [address] [place] [address], [id number] , [facility] ([place] 12-13-2022 Evaluation + Plan note Future Scheduled TestsSerum test 12/13/22XR Chest 2 Views (PA & Lateral) 01/09/23 [facility] 11-12-2022 Miscellaneous Notes Formatting of this note [...] vm that patient can go to any [facility] facility for testing. Kaye Monae LPN documented in this encounter [facility] 10-04-2022 Note HNO ID: [id number] Author: Barby Guerin MD Service: ? Author [...] oxalate (LEXAPRO) 5 mg tablet FLUCELVAX QUAD 6535-1681, PF, 60 mcg (15 mcg x 4)/0.5 [...] ?C (97.9 ?F) (more content not included)... [facility] 10-04-2022 History of Present illness Narrative [...] oxalate (LEXAPRO) 5 mg tablet FLUCELVAX QUAD [id number], PF, 60 mcg (15 mcg x 4)/0.5 [...] 1V AP BILATERAL DNA ANTIBODY DS BLD SUPERVISOR TILE AND MOTTLE ANTIBODY BLOOD JEAN BAPTISTE IGG AB SJOGREN ABS SSA/SSB VITAMIN D 25 HYDROXY FERRITIN BLD IRON + TIBC VITAMIN B12 BLOOD URINALYSIS WITH MICROSCOPIC, REFLEX CULTURE CREATININE RANDOM UR PROTEIN RANDOM UR No orders of the defined types were placed in this encounter. No follow-ups on file. Barby Guerin MD documented in this encounter [facility] 06-30-2022 Evaluation + Plan note Diagnostic Tests PendingThyroglobulin 06/30/22 Future Scheduled TestsLipid Profile 05/23/22 [facility] 05-19-2022 Evaluation + Plan note Diagnostic Tests PendingAntinuclear Antibody Screen, Serum 05/19/22 [facility] 11-23-2021 Hospital Discharge instructions Patient Education 11/22/2021 22:56:24 AA Mary Alice MARTINEZ (CUSTOM) Result type:CT Abd/Pelvis w/ IV Contrast Only Result date:November 22, 2021 22:11 EDT Result status:In Progress Result title:CT ABD/PELVIS W/ IV CONTRAST ONLY Performed by:THEODORA SANTOS DO on November 22, 2021 22:09 EDT Cosigned by:THEODORA SANTOS DO Encounter info:[id number], [facility], Emergency, 11/22/2021 - Contributor system:[employer] * Preliminary Report * [id number] ORIGINAL EXAMINATION: CT OF THE ABDOMEN AND [...] Document Reviewed: 08/20/2014 ExitCare Patient Information 2015 [employer]. This information is not intended to replace [...] painful lymph nodes (lumps) in the groinTh [phone] [employer]. [address] [place] [address]. All rights reserved. This information is not [...] foods again, start with small amounts of lmiu-cp-uvcndz, low-fat foods. These include apple sauce, toast, [...] increase stomach acid. Don't use aspirin or eyre-zrz-vunfzcm pain and fever medicines, if possible. This includes nonsteroidal anti-inflammatory drugs (NSAIDs). Lose excess weight. Finish eating at least 2 hours before you go to bed or lie down. Raise the head of your bed. [phone] [employer]. [address] [place] [address], [place] [address]. All rights reserved. This information is not intended as a substitute for professional medical care. Always follow your healthcare professional's instructions. Follow Up Care 11/22/2021 20:46:11 With:Go to emergency room if symptoms worsen Address:Unknown When:2-4 days With:JIANGUMARO PARKINSON Address: [address] [facility] [place] [phone] When:2-4 days [facility] 11-22-2021 Evaluation + Plan note Diagnostic Tests PendingUrine Culture 11/22/21 [facility] 08-31-2021 Evaluation + Plan note Diagnostic Tests PendingCOVID-19 Only (AO) 08/31/21 [facility] 01-26-2021 History of Present illness Narrative DATE [...] days, sooner if complications or problems arise. Ingrid Arce DO [id number] [facility] File#: [id number] END OF DOCUMENT / CHANGE LOG FOLLOWS Last Edited By [employer]. Signed By Ingrid Arce Lisa D DO #VAULI on 01/29/2021 09:04 ET on 01/29/2021 09:04 ET Revision Number - 2 ^^^ Verified/Reviewed by 01/29/21903 JOMAR [facility] PATIENT NAME: DIEGO ROCK [address] [facility] [address] Isidro MEDICAL REC #: [id number] [place] [address] [facility] REPORT [facility] PHYSICIAN documented in this encounter [facility] Diagnosis History of UTI- Primary Kidney stone Calculus of kidney Right ureteral calculus Calculus of ureter [facility] Diagnosis Right ureteral calculus Calculus of ureter [facility] Diagnosis Right ureteral calculus Calculus of ureter documented [facility] Diagnosis Left flank pain- Primary Abdominal pain, unspecified site Kidney stones Calculus of kidney [facility] Diagnosis Flank pain- Primary Abdominal pain, unspecified site Dysuria Renal calculi Calculus of kidney [facility] Kidney stones- Primary Calculus of kidney [facility] Narrative No data available for this section [facility] Hospital Discharge instructions No data available for this section [facility] Progress note No data available for this section [facility] Reason for referral (narrative)* Diagnostic Procedure Only (Routine) - Pending Review Specialty Diagnoses / Procedures Referred By Collins t Referred To Contact XR IMAGING Diagnoses Positive JACKI (antinuclear antibody) Procedures XR KNEE SURVEY ARTHRITIS 1V AP BILATERAL RADIOLOGIC EXAM BOTH KNEES STANDING ANTEROPOST Barby Guerin MD [address] [facility] [address] [place] [address] Xr Imaging Referral ID Status Reason Start Date Expiration Date Visits Requested Visits Authorized [id number] Pending Review Auto-Generat ed Referral 10/04/2022 11/03/2023 1 1 [facility] Summary Purpose Family History No Family History Records FoundNo Family History Records FoundNo Family History Records FoundNo Family History Records FoundNo Family History Records Found No data available for this section No Family History Records Found No data available for this section No Family History Records Found Advance Directives No Advanced Directives Records FoundDocuments on File Type Date Recorded 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 Advance Directive(s) 12/24/2018 8:28 PM Additional Source Comments INFORMATION SOURCE (unrecogn ized section and content) DATE CREATED AUTHOR AUTHOR'S ORGANIZ ATION 02/01/2019 [facility] [employer] DATE CREATED AUTHOR AUTHOR'S ORGANIZ ATION 07/21/2019 [facility] ([place]) DATE CREATED AUTHOR AUTHOR'S ORGANIZ ATION 10/17/2021 [facility] jordan Vona DATE CREATED AUTHOR AUTHOR'S ORGANIZ ATION 11/13/2022 [facility] DATE CREATED AUTHOR AUTHOR'S ORGANIZ ATION 06/07/2023 [facility] [employer] [facility] DATE CREATED AUTHOR AUTHOR'S ORGANIZ ATION 08/31/2023 [facility] [employer] ([place]) Source Comments (unrecognize d section and content) In the event this informatio n is protected by the Federal Confidentiality of Alcohol and Drug Abuse Patient Records regulations: The Federal rules restrict any use of the information to criminally investigate or prosecute any alcohol or drug abuse patient.[facility] the event this information is protected by the Federal Confidentiality of Alcohol and Drug Abuse Patient Records regulations: The Federal rules restrict any use of the information to criminally investigate or prosecute any alcohol or drug abuse patient.[facility] the event this information is protected by the Federal Confidentiality of Alcohol and Drug Abuse Patient Records regulations: The Federal rules restrict any use of the information to criminally investigate or prosecute any alcohol or drug abuse patient.[facility] Care Teams (unrecognized sec tion and content) Web Operations Specialist Relationship Specialty Start Date End Date Gumaro Villar DO PCP - General Family Medicine 10/08/17 Web [employer] Specialist Relationship Specialty Start Date End Date Gumaro Villar DO PCP - General Family Medicine 10/08/17 Web [employer] Specialist Relationship Specialty Start Date End Date Gumaro Villar DO [address] [place] [address] PCP - General 01/19/19 Tank Escobar MD [address] [place] [address] Surgeon Urology 01/23/23 Web [employer] Specialist Relationship Specialty Start Date End Date Gumaro Villar DO [facility] [place] [address] PCP - General 01/19/19 Tank Escobar MD [address] [place] [address] Surgeon Urology 01/23/23 Web [employer] Specialist Relationship Specialty Start Date End Date Gumaro Villar DO [facility] [place] [address] PCP - General 01/19/19 Tank Escobar MD [address] [place] [address] Surgeon Urology 01/23/23 Web Operations Specialist Relationship Specialty Start Date End Date Gumaro Villar DO [facility] [place] [address] PCP - General 01/19/19 Tank Escobar MD [address] [place] [address] Surgeon Urology 01/23/23 Web [employer] Specialist Relationship Specialty Start Date End Date Gumaro Villar DO [address] [place] [address] PCP - General 01/19/19 Tank Escobar MD [address] [place] [address] Surgeon Urology 01/23/23 Web [employer] Specialist Relationship Specialty Start Date End Date Gumaro Villar DO [address] [place] [phone] PCP - General 01/19/19 Tank Escobar MD [address] [place] [address] Surgeon Urology 01/23/23 Web [employer] Specialist Relationship Specialty Start Date End Date Gumaro Villar DO [address] [place] [phone] PCP - General 01/19/19 Tank Escobar MD [address] [place] [address] Surgeon Urology 01/23/23 Care Team (unrecognized sect ion and content) Care Team Personnel Name: GUMARO VILLAR DO Position: P4 Physician - Primary Care Med Service: Active Provider Member Role: Primary Care Physician Address: Address: [address] [place] [id number] [place] [address] Care Team Related Persons Name: BONNIE ROCK Name: DRAKE ROCK Address: Home [address] [place], [place] [id number] Address: Temporary [address] [place], [place] [id number] Name: ELVI DC Care Team Personnel Name: GUMARO VILLAR DO Position: P4 Physician - Primary Care Member Role: Primary Care Physician Address: Address: [address] [place] [address]- Care Team Related Persons Name: BONNIE ROCK Name: DRAKE ROCK Address: Home [address] [place], [place] [id number] Address: Temporary [address] [place], [place] [id number] Name: ELVI DC Reason for Visit (unrecogniz ed section and [...] BE BASED ON THE PRIMARY CLINICAL RECORDS. [facility]. provides no warranty or guarantee of the accuracy or completeness of information in this document.
[2023-09-04 06:57] LABS: Anion Gap 4 (5-15); BUN 11 mg/dL (7-18); BUN/Creat Ratio 11.8 RATIO (10-20); Calcium,Total 9.1 mg/dL (8.5-10.1); Chloride 109 mmol/L (98-107); Creatinine, Serum 0.94 mg/dL (0.55-1.02); EST Glomerular Filtration Rate 78 mL/min (>60); Est Glom Filt Rate - Afr Amer 94 mL/min (>60); Estimated Creatinine Clearance 113.63 ml/min; Glucose 114 mg/dL (74-106); Potassium 4.1 mmol/L (3.5-5.1); Sodium Level 137 mmol/L (136-145)
[2023-09-04 07:46] VITALS: BP 106/75; PULSE 105; RESP 16; O2SAT 97
== END 2023-09-04 07:47 | disposition home or self-care (01) ==
PROVIDERS: Emergency Provider Emergency Medicine; Visit Provider Emergency Medicine
DX: J10.1 Influenza due to other identified influenza virus with other respiratory manifestations (principal); R51.9 Headache, unspecified; Z87.442 Personal history of urinary calculi; Z87.440 Personal history of urinary (tract) infections; K21.9 Gastro-esophageal reflux disease without esophagitis
CPT/HCPCS: 80048; 85025; 87428; 96361; 96374; 96375; 99283; J7030; A4216

== ENCOUNTER 2024-01-28 17:48 | Emergency (ER) | payer BC, SELFPAY ==
[2024-01-28 17:48] VITALS: BP 144/90; PULSE 99; RESP 16; TEMP 36.6; O2SAT 100; BMI 37.3
[2024-01-28 19:20] VITALS: PULSE 97; RESP 20; O2SAT 98
--- NOTE | 2024-01-28 19:25 | EKG12_ITS ---
Test Reason : CP Blood Pressure : / mmHG Vent. Rate : 099 BPM Atrial Rate : 099 BPM P-R Int : 148 ms QRS Dur : 070 ms QT Int : 352 ms P-R-T Axes : 037 -12 025 degrees QTc Int : 451 ms Normal sinus rhythm Minimal voltage criteria for LVH, may be normal variant ( R in aVL ) Borderline ECG No previous ECGs available Confirmed by Silvio Nina ([id number]), general expeditor ERNIE KEYES ([id number]) on 02/03/2024 1:30:38 PM Referred By: RENE Confirmed By:Silvio Nina
--- NOTE | 2024-01-28 19:26 | EDS_ITS ---
HPI History of Present Illness Chief Complaint: Chest Pain Informant: patient Onset/Context/Timing Onset: Today Activity at onset: sudden and rest Timing: Intermittent Quality: Positive for Burning and Sharp Location: Left Chest Worsened By: Nothing Relieved By: Nothing Associated Symptoms: Positive for Nausea; Negative for Vomiting, Diaphoresis, Dyspnea, Cough, Fever, Lightheadedness, Acid Reflux or Palpitations Narrative Narrative: Patient presents with chest pain that began this morning. Patient states it came on rather suddenly. Patient states she was sitting when the pain began. Patient states the pain is over the left lower chest area. Patient describes it as sharp and burning. Patient states nothing makes it worse and nothing makes it better. Patient admits to some nausea but denies any vomiting. Patient denies any fevers or chills. Patient denies any shortness of breath or cough. Patient denies any cardiac or PE risk factors. CVD Risk Factors: Positive for Hypertension, Diabetes, Hypercholesterolemia, Family History 1' </=55 and Smoking PE Risk Factors: Positive for Recent Travel/Surgery, Recent Immobilization, Prior DVT or PE and Cancer [facility] Medical History Depression Kidney stones GERD (gastroesophageal reflux disease) Asthma Urinary tract infection Hidradenitis Allergy/AdvReac Type Severity Reaction Status Date / Time amoxicillin (From Augmentin) Allergy Other Verified 01/28/24 17:51 bee venom protein (honey bee) Allergy Hives Verified 01/28/24 17:51 clavulanic acid (From Allergy Other Verified 01/28/24 17:51 Augmentin) hydromorphone (From Dilaudid) AdvReac Other Verified 01/28/24 17:51 Surgical History History of wisdom tooth extraction, class II edentulism History of tonsillectomy Social History household members: spouse Smoking Status: Never smoker alcohol intake: never substance use type: does not use caffeine: Yes what type of physical activity do you participate in: walking seatbelt use: always do you feel safe at home: Yes 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 [employer] ROS ROS ED Constitutional Constitutional ED: Denies chills or fever(s) Eyes Eyes: Denies blurry vision or change in vision ENT ENT ED: Denies rhinorrhea or sore throat Cardiovascular Cardiovascular: Denies chest pain or palpitations Respiratory/Chest Respiratory/Chest: Denies cough or dyspnea Gastrointestinal Gastrointestinal: Reports nausea; Denies vomiting Genitourinary Genitourinary ED: Denies dysuria or hematuria Musculoskeletal Musculoskeletal: Reports neck pain; Denies back pain Integumentary Denies abscess or rash Neurologic Neurologic: Denies headache(s) or weakness Allergic/Immunologic Allergic/Immunologic ED: Denies mouth swelling or urticaria EXAM Physical Exam Const Vital Signs: 01/28/24 17:48 01/28/24 19:20 01/28/24 19:22 Temperature 98 F Temperature Source Temporal Pulse Rate 99 97 Respiratory Rate 16 20 H Respiratory Effort Normal Blood Pressure 144/90 H Blood Pressure Mean 108 Pulse Ox 100 98 Oxygen Delivery Method Room Air Room Air Positive well nourished and well developed General Appearance ED: well developed and NAD HEENT Reports moist mucous membranes normocephalic and atraumatic Neck supple and no JVD Resp normal respiratory effort and clear to auscultation bilaterally Cardio regular rate and regular rhythm GI soft to palpation, non-tender and non-distended Neuro oriented x3, CN's II-XII intact bilaterally, no sensory deficits noted and gait normal Sensorium / Orientation: awake and alert Motor Exam: strength 5/5 throughout Psych mental status grossly normal Heart Score History: Slightly/Non-Suspicious ECG: Normal Age: </= 45 years Risk Factors: No Risk Factors Score: 0 MDM MDM MDM Narrative Medical decision making narrative: Differential diagnosis includes cardiac dysrhythmia, cardiac ischemia, pneum onia, pneumothorax, electrolyte abnormality, musculoskeletal pain, and anxiety. EKG will be obtained to assess for cardiac dysrhythmia and cardiac ischemia. Chest x-ray will be obtained to assess for pneumonia and pneumothorax. CBC will be obtained to assess for leukocytosis and anemia. Basic metabolic profile will be obtained to assess for electrolyte abnormality and renal function. High-sen sitivity troponin will be obtained to assess for cardiac ischemia. Lab Data Attestation: I reviewed the patient's lab results. Lab results narrative: CBC was reviewed. There is a leukocytosis of 15.7. The remainder is within normal limits. Basic metabolic profile was reviewed and was essentially within normal limits. High-sensitivity troponin was reviewed and was normal at 4. Radiography Chest X-Ray - ED: 2 View, Read by ED Physician, Read by Radiologist and No Acute Disease Diagnostic Testing: PA and lateral chest x-ray was obtained. There are 2 views. On my independent interpretation, lung bain are clear. There is normal cardiac silhouette. Bony thorax is normal. There is no acute process noted. Radiologist also interpreted the x-ray and agrees. EKG Initial EKG: Attestation: I personally reviewed and interpreted this EKG as follows: Interpretation: Sinus Rhythm (99) and No Acute Injury Pattern Comments: EKG was obtained. On my independent interpretation, it showed a normal sinus rhythm with a rate of 99. [place] interval, QRS interval, and QTc intervals were all normal. [place] was normal. There are no acute ST or T wave changes. Prior EKG tracings: not available for review Prior: No Prior Treatment and Re-Evaluation :: Patient was given aspirin here. Patient was advised of her findings. Patient has a HEART score of 0. Patient was advised that this is low risk for acute cardiac event. Patient was instructed to follow-up with her primary care physician in 5 to 7 days. Patient was instructed to return if worse in any way. Patient understood and was agreeable with the plan. All questions were answered. Discharge Plan Triage Chief Complaint: Chest Pain ED Provider: Maik Garcia Dx/Rx/DC Orders Clinical Impression: Chest pain, Anxiety, Leukocytosis Instructions: ED Chest Pain, Uncertain Cause Primary Care Provider: Jocelyn Davis Referrals: Jocelyn Davis, [Primary Care Provider] - 5-7 Days Print Language: Ghanaian Disposition Disposition: Home, Self Care
[2024-01-28 19:39] LABS: Absolute Lymphocyte Count 2.22 X10^3/uL (0.83-4.51); Absolute Neutrophil Count 12.2 X10^3/uL (2.0-7.7); Basophil# 0.06 X10^3/uL; Basophil% 0.4 % (0-1); Eosinophil# 0.45 X10^3/uL; Eosinophils% 2.9 % (0-5); Hematocrit 41.8 % (37-47); Hemoglobin 13.9 g/dL (12.0-15.0); Lymphocyte # 2.22 X10^3/ul (0.83-4.51); Lymphocyte % 14.1 % (19-41); Mean Corp Hgb Conc 33.3 g/dL (32-36); Mean Corpuscular Volume 84.3 fL (81-99); Mean Platelet Vol. 10.1 fl (6.2-12.0); Monocyte# 0.73 X10^3/uL; Monocyte% 4.6 % (0-10); NRBC Flagged by Analyzer 0 % (0-5); Neutrophil # 12.16 X10^3/uL (2.7-7.7); Neutrophil % 77.5 % (47-70); Platelet Count 307 K/mm3 (150-450); RBC Distribution Width CV 12.8 % (11.6-14.6); RBC Distribution Width SD 38.6 fl (35.1-43.9); Red Blood Count 4.96 M/mm3 (4.2-5.4); White Blood Count 15.7 K/mm3 (4.4-11.0)
[2024-01-28] MEDS: Aspirin 81 MG TAB.CHEW 324 MG PO (19:39)
--- NOTE | 2024-01-28 19:40 | RAD_ITS ---
EXAM: XR CHEST, 2 VIEWS CLINICAL INDICATION: chest pain TECHNIQUE: Frontal and lateral views of the chest. COMPARISON: 10/03/2007 FINDINGS: LUNGS AND PLEURAL SPACES: No significant abnormality. No consolidation or edema. No pneumothorax. No effusion. HEART: No significant abnormality. Cardiac silhouette not enlarged. MEDIASTINUM: Central airways and mediastinal contour are unremarkable. BONES/JOINTS: No significant abnormality. No acute fracture. SOFT TISSUES: No significant abnormality. RAD/Chest PA and Lateral IMPRESSION: No radiographic evidence of acute cardiopulmonary disease. Electronically Signed: Corey Crespo DO at 20:13 EDT ,
[2024-01-28 19:57] LABS: Anion Gap 4 (5-15); BUN 10 mg/dL (7-18); BUN/Creat Ratio 9.8 RATIO (10-20); Calcium,Total 9.4 mg/dL (8.5-10.1); Chloride 108 mmol/L (98-107); Creatinine, Serum 1.02 mg/dL (0.55-1.02); EST Glomerular Filtration Rate 70 mL/min (>60); Est Glom Filt Rate - Afr Amer 85 mL/min (>60); Glucose 138 mg/dL (74-106); Potassium 3.8 mmol/L (3.5-5.1); Sodium Level 139 mmol/L (136-145); Troponin-I HS 4 pg/mL (3.0-54.0)
[2024-01-28 20:00] VITALS: BP 130/90; PULSE 99; RESP 14; O2SAT 96
[2024-01-28 21:00] VITALS: BP 124/90; PULSE 96; RESP 23; O2SAT 99
[2024-01-28 21:12] VITALS: BP 124/90; PULSE 92; RESP 19; TEMP 36.7; O2SAT 99
== END 2024-01-28 21:13 | disposition home or self-care (01) ==
PROVIDERS: Emergency Provider Emergency Medicine; Visit Provider Emergency Medicine
DX: R07.9 Chest pain, unspecified (principal); F41.9 Anxiety disorder, unspecified; D72.829 Elevated white blood cell count, unspecified; J45.909 Unspecified asthma, uncomplicated
CPT/HCPCS: 71046; 80048; 84484; 85025; 93005; 99283; A4216

== ENCOUNTER 2024-02-24 20:38 | Emergency (ER) | payer BC, SELFPAY ==
[2024-02-24 20:40] VITALS: BP 136/91; PULSE 100; RESP 18; TEMP 36.3; O2SAT 100; BMI 37.3
--- NOTE | 2024-02-24 21:05 | US_ITS ---
INDICATION: and bleeding EXAMINATION: US OB Transvaginal TECHNIQUE: Transvaginal (for optimal evaluation of the adnexa) pelvic ultrasound was performed. Grayscale, spectral waveform, and color flow Doppler evaluation of the adnexa. COMPARISON: None. FINDINGS: UTERUS: Measures 8.1 cm in length.. RIGHT OVARY: Measures 2.4 x 2.2 x 2.4 cm. Normal. LEFT OVARY: Not visualized. FREE FLUID: None. INTRAUTERINE GESTATIONAL SAC(s) (size/shape): Single. . YOLK SAC: Identified POLE: Identified CRL measures 0.4 cm. ESTIMATED GESTATION AGE: 6 weeks and 2 days. HEART MOTION: 114 bpm. PLACENTA: Not visualized due to age. SUBCHORIONIC HEMORRHAGE: Small AMNIOTIC FLUID: Qualitatively normal. US/Transvaginal w/Preg US IMPRESSION: Single live intrauterine . Estimated gestational age is 6 weeks and 2 days. Small subchorionic hemorrhage. Electronically Signed: Fermin Ward MD at 22:39 EDT ,
--- NOTE | 2024-02-24 21:06 | EDS_ITS ---
HPI HPI - Female History of Present Illness Chief Complaint: Vag Bld, Preg Detail of Chief Complaint: Vaginal bleeding with Informant: patient Narrative Narrative: Vaginal bleeding that started today with lower pelvic cramping. Patient had an ultrasound little over a week ago that showed an intrauterine with subchorionic hemorrhage. Patient leaving for vacation in 5 days. She is G1, P0. She had no vomiting. She denies fever. PFSH PFSH Medical History Depression Kidney stones GERD (gastroesophageal reflux disease) Asthma Urinary tract infection Hidradenitis Home Medications ?Medication ?Instructions ?Recorded ?Last Taken ?Type ondansetron 4 mg disintegrating 4 mg PO Q8H PRN PRN Nausea #10 tabs 02/24/24 Unknown Rx tablet Allergy/AdvReac Type Severity Reaction Status Date / Time amoxicillin (From Augmentin) Allergy Other Verified 02/24/24 20:40 bee venom protein (honey bee) Allergy Hives Verified 02/24/24 20:40 clavulanic acid (From Allergy Other Verified 02/24/24 20:40 Augmentin) hydromorphone (From Dilaudid) AdvReac Other Verified 02/24/24 20:40 Surgical History History of wisdom tooth extraction, class II edentulism History of tonsillectomy Social History household members: spouse Smoking Status: Never smoker alcohol intake: never substance use type: does not use caffeine: Yes what type of physical activity do you participate in: walking seatbelt use: always do you feel safe at home: Yes 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 [employer] ROS ROS ED Review of Systems ROS Unobtainable: other Constitutional Constitutional ED: Reports lethargy; Denies chills, fever(s), sweats or weight loss Eyes Eyes: Denies blurry vision, change in vision or diplopia ENT ENT ED: Denies rhinorrhea or sore throat Cardiovascular Cardiovascular: Denies chest pain, orthopnea or racing heartbeat Respiratory/Chest Respiratory/Chest: Denies cough, dyspnea, dyspnea on exertion, orthopnea or sputum Gastrointestinal Gastrointestinal: Reports abdominal pain; Denies diarrhea, nausea or vomiting Genitourinary Genitourinary ED: Reports other Details: Vaginal bleeding ; Denies dysuria, hematuria or urinary frequency Musculoskeletal Musculoskeletal: Denies arthralgias, back pain, myalgias or neck pain Integumentary Denies abscess, Abrasions or rash Neurologic Neurologic: Denies headache(s) or weakness Psychiatric Psychiatric: Denies anxiety, depression or suicidal thoughts Endocrine Endocrinology: Denies polydipsia, polyphagia or polyuria Hematologic/Lymphatic Hematologic/Lymphatic: Denies easy bleeding, easy bruising or lymphadenopathy Allergic/Immunologic Allergic/Immunologic ED: Denies mouth swelling, tongue swelling or urticaria EXAM Physical Exam Const Vital Signs: 02/24/24 20:40 Temperature 97.3 F L Temperature Source Temporal Pulse Rate 100 Respiratory Rate 18 Blood Pressure 136/91 H Blood Pressure Mean 106 Pulse Ox 100 Oxygen Delivery Method Room Air Positive well nourished and well developed General Appearance ED: well developed and NAD HEENT Reports TM's clear and moist mucous membranes normocephalic and atraumatic; Negative for trauma or tenderness Tympanic Membrane ED: Yes TM's clear Eyes PERRL and EOMs intact bilaterally General Eye ED: Negative for pale conjunctiva or scleral icterus Neck no lymphadenopathy, supple and no JVD General: Negative for tenderness Chest Wall inspection of chest normal and palpation of chest normal Chest: Negative for tenderness Resp normal respiratory effort and clear to auscultation bilaterally Effort and Inspection: Negative for respiratory distress or pain with movement Auscultation: Negative for rhonchi, wheezes or diminished lung sounds Cardio regular rate, regular rhythm, S1 normal heart sound, S2 normal heart sound and no murmurs Peripheral Pulses: pulses 2+ throughout GI normal to inspection, nondistended, normoactive bowel sounds, soft to palpation and no masses GI Narrative: Tenderness palpation of the right lower quadrant and suprapubic region. There is no rebound, rigidity, or peritoneal signs. No mass palpated. Back/Spine no CVA tenderness and no thoracic nor lumbar tenderness Extremity normal to inspection General Extremety ED: Negative for edema General Extremity: Negative for edema Neuro oriented x3, CN's II-XII intact bilaterally, no sensory deficits noted and gait normal Sensorium / Orientation: awake, alert, oriented to person, oriented to place and oriented to time Motor Exam: strength 5/5 throughout and strength abnormal Psych mental status grossly normal Skin no rashes or lesions noted and no wounds MDM MDM MDM Narrative Medical decision making narrative: Patient presents with lower abdominal cramping and small amount of vaginal bleeding. She is and had an ultrasound about a week ago that showed a subchorionic hemorrhage. IV line established. CBC with differential count of 15.2 with hemoglobin 14 and platelet count of 293. Quantitative hCG was 16,000 891. Urinalysis unremarkable. Blood type B-. Ultrasound of the pelvis obtained showed a intrauterine with 6 weeks 2-day gestational age with a heartbeat of [address] case [address] Senior and will go ahead and give RhoGAM. She is is given bleeding precautions and advised to return if worsening pain, persistent heavy bleeding with more than 1 pad an hour for 4 consecutive hours. Lab Data Attestation: I reviewed the patient's lab results. Labs: Laboratory Results - last 24 hr 02/24/24 02/24/24 21:30 21:35 WBC 15.2 H RBC 5.05 Hgb 14.4 Hct 44.5 MCV 88.1 MCH 28.5 MCHC 32.4 RDW Std Deviation 42.5 RDW Coeff of [place] 13.2 Plt Count 293 MPV 10.0 Immature Gran % (Auto) 0.500 Neut % (Auto) 71.8 H Lymph % (Auto) 18.7 L [place] % (Auto) 5.4 Eos % (Auto) 3.1 Baso % (Auto) 0.5 Absolute Neuts (auto) 10.9 H Absolute Lymphs (auto) 2.83 Nucleated RBC % 0 HCG, Quant 48179 H Urine Color Yellow Urine Clarity Clear Urine pH 6.0 Ur Specific [place] 1.010 Urine Protein Negative Urine Glucose (UA) Normal Urine Ketones 5 H Urine Occult Blood 10 H Urine Nitrite Negative Urine Bilirubin Negative Urine Urobilinogen Normal Ur Leukocyte Esterase 500 H Urine RBC 0 SEEN Urine WBC 0-5 SEEN Ur Squamous Epith Cells 0-5 SEEN Urine Bacteria 0 SEEN Urine Mucus 0 SEEN Blood Type B NEGATIVE Radiography Diagnostic Testing: Clinical Impression(s) from Imaging Studies Obstetrics Ultrasound 02/24/24 21:05 IMPRESSION: Single live intrauterine . Estimated gestational age is 6 weeks and 2 days. Small subchorionic hemorrhage. Electronically Signed: Fermin Ward MD at 22:39 EDT , Discharge Plan Triage Chief Complaint: Vag Bld, Preg ED Provider: Jose De Jesus Ramsey Dx/Rx/DC Orders Clinical Impression: Threatened in first trimester Instructions: Miscarriage Threatened Prescriptions: New ondansetron 4 mg tablet,disintegrating 4 mg PO Q8H PRN PRN (Reason: Nausea) Qty: 10 0RF Primary Care Provider: Jocelyn Davis Referrals: Jocelyn Davis DO [Primary Care Provider] - Nga Senior DO [Med Staff - Active Staff] - Keep Venessa appointment Print Language: Costa Rican Disposition Disposition: Home, Self Care
[2024-02-24 21:48] LABS: Absolute Lymphocyte Count 2.83 X10^3/uL (0.83-4.51); Absolute Neutrophil Count 10.9 X10^3/uL (2.0-7.7); Basophil# 0.07 X10^3/uL; Basophil% 0.5 % (0-1); Eosinophil# 0.47 X10^3/uL; Eosinophils% 3.1 % (0-5); Hematocrit 44.5 % (37-47); Hemoglobin 14.4 g/dL (12.0-15.0); Lymphocyte # 2.83 X10^3/ul (0.83-4.51); Lymphocyte % 18.7 % (19-41); Mean Corp Hgb Conc 32.4 g/dL (32-36); Mean Corpuscular Hgb 28.5 pg (27.0-32.0); Mean Corpuscular Volume 88.1 fL (81-99); Monocyte# 0.82 X10^3/uL; Monocyte% 5.4 % (0-10); NRBC Flagged by Analyzer 0 % (0-5); Neutrophil # 10.91 X10^3/uL (2.7-7.7); Neutrophil % 71.8 % (47-70); Platelet Count 293 K/mm3 (150-450); RBC Distribution Width CV 13.2 % (11.6-14.6); RBC Distribution Width SD 42.5 fl (35.1-43.9); Red Blood Count 5.05 M/mm3 (4.2-5.4); White Blood Count 15.2 K/mm3 (4.4-11.0)
[2024-02-24 21:53] LABS: Bacteria 0 SEEN /hpf (None Seen); Mucous, Urine 0 SEEN /hpf (<or=2+); Red Blood Cells-Urine 0 SEEN /hpf (0-5)
[2024-02-24 21:57] LABS: Color, Urine Yellow (Yellow); Glucose, Dipstick Normal (Normal); Ketone-Dipstick 5 mg/dl (Negative); Leukocyte Esterase-Dipstick 500 /ul (Negative); Nitrite-Dipstick Negative (Negative); Occult Blood-Urine 10 /ul (Negative); Protein-Dipstick Negative (Negative); Urine Bilirubin Dipstick Negative (Negative); Urine Clarity Clear (Clear); Urine Urobilinogen Normal (Normal)
[2024-02-24 22:42] LABS: Squamous Epithelial Cells - UA 0-5 SEEN /hpf (5-10); White Blood Cells 0-5 SEEN /hpf (0-5)
[2024-02-24 23:06] LABS: hCG Titer Quant., Serum 16891 mIU/mL (1-3)
--- NOTE | 2024-02-25 07:16 | ED.RN ---
see downtime documentation
== END 2024-02-25 00:30 | disposition home or self-care (01) ==
PROVIDERS: Emergency Provider Emergency Medicine; Visit Provider Emergency Medicine
DX: O20.0 Threatened abortion (principal); Z3A.01 Less than 8 weeks gestation of pregnancy; Z87.442 Personal history of urinary calculi
CPT/HCPCS: 99282; 76817; 81001; 84702; 85025; 86900; 86901; 90384; 96372; 99285; J2790; J2791

== ENCOUNTER 2024-07-06 22:55 | Outpatient (CLI) | payer OTHER, SELFPAY ==
[2024-07-06 23:00] VITALS: BMI 37.0
--- NOTE | 2024-07-06 23:09 | US_ITS ---
EXAM: US RETROPERITONEAL LIMITED, RENAL CLINICAL INDICATION: Right flank pain TECHNIQUE: Limited grayscale and color Doppler sonographic evaluation of the retroperitoneum was performed. COMPARISON: No relevant prior studies available. FINDINGS: RIGHT KIDNEY: Unremarkable. No hydronephrosis. No shadowing calculus. No perinephric collection is demonstrated. The right kidney measures 10.5 cm in length. LEFT KIDNEY: Unremarkable. No hydronephrosis. No shadowing calculus. No perinephric collection is demonstrated. The left kidney measures 10.8 cm in length. BLADDER: Bladder is normal. US/Kidney and Bladder IMPRESSION: Normal kidneys. Electronically Signed: Silvio Spivey MD at 0:43 EST ,
[2024-07-06 23:16] VITALS: BP 134/71; PULSE 92; RESP 18; TEMP 36.9; O2SAT 98
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
[2024-07-07] MEDS: Lactated Ringers 1,000 ML 999 ML IV
[2024-07-07 00:15] LABS: Mucous, Urine 0 SEEN /hpf (<or=2+); Red Blood Cells-Urine 0 SEEN /hpf (0-5)
[2024-07-07 00:16] LABS: Absolute Lymphocyte Count 2.13 X10^3/uL (0.83-4.51); Absolute Neutrophil Count 12.8 X10^3/uL (2.0-7.7); Basophil# 0.05 X10^3/uL; Basophil% 0.3 % (0-1); Eosinophil# 0.46 X10^3/uL; Eosinophils% 2.8 % (0-5); Hematocrit 36.2 % (37-47); Hemoglobin 12.2 g/dL (12.0-15.0); Lymphocyte # 2.13 X10^3/ul (0.83-4.51); Lymphocyte % 12.8 % (19-41); Mean Corp Hgb Conc 33.7 g/dL (32-36); Mean Corpuscular Hgb 29.3 pg (27.0-32.0); Mean Corpuscular Volume 86.8 fL (81-99); Mean Platelet Vol. 10.3 fl (6.2-12.0); Monocyte# 1.03 X10^3/uL; Monocyte% 6.2 % (0-10); NRBC Flagged by Analyzer 0 % (0-5); Neutrophil % 76.8 % (47-70); Platelet Count 235 K/mm3 (150-450); RBC Distribution Width CV 13.5 % (11.6-14.6); RBC Distribution Width SD 42.7 fl (35.1-43.9); Red Blood Count 4.17 M/mm3 (4.2-5.4); White Blood Count 16.7 K/mm3 (4.4-11.0)
[2024-07-07] MEDS: Ondansetron 4 MG/2 ML Vial IV (00:23)
[2024-07-07] MEDS: HYDROcodone Bitartrate/Apap 5/325 Tablet PO (00:23)
[2024-07-07 00:27] VITALS: BP 120/76; PULSE 88; RESP 16; TEMP 36.7; O2SAT 97
[2024-07-07 00:40] LABS: Color, Urine Yellow (Yellow); Glucose, Dipstick Normal (Normal); Ketone-Dipstick Negative (Negative); Leukocyte Esterase-Dipstick 500 /ul (Negative); Nitrite-Dipstick Negative (Negative); Occult Blood-Urine 10 /ul (Negative); Protein-Dipstick Negative (Negative); Specific Gravity, Urine 1.015 (1.002-1.030); Urine Bilirubin Dipstick Negative (Negative); Urine Clarity Clear (Clear); Urine Urobilinogen Normal (Normal)
[2024-07-07 00:43] LABS: Protein, Urine (Random) < 6.0 mg/dL (<11.9); Protein:Creat Ratio 155 mg/g CRE (0-200)
[2024-07-07 00:45] LABS: ALB/GLOB Ratio 0.7 RATIO (0.9-2.4); AST(SGOT) 7 U/L (15-37); Alanine Aminotransfer ALT/SGPT 14 U/L (13-56); Albumin, Serum 2.6 g/dL (3.2-5.0); Alkaline Phosphatase 77 U/L (45-117); Anion Gap 8 (5-15); BUN 7 mg/dL (7-18); BUN/Creat Ratio 12.3 RATIO (10-20); Chloride 110 mmol/L (98-107); Creatinine, Serum 0.57 mg/dL (0.55-1.02); EST Glomerular Filtration Rate 137 mL/min (>60); Est Glom Filt Rate - Afr Amer 166 mL/min (>60); Estimated Creatinine Clearance 139.15 ml/min; Globulin 3.6 g/dL (2.2-4.2); Glucose 88 mg/dL (74-106); Potassium 3.8 mmol/L (3.5-5.1); Protein, Total 6.2 g/dL (6.4-8.2); Sodium Level 138 mmol/L (136-145)
[2024-07-07 00:55] LABS: Bacteria RARE /hpf (None Seen); Squamous Epithelial Cells - UA 0-5 SEEN /hpf (5-10); White Blood Cells 0-5 SEEN /hpf (0-5)
[2024-07-07 13:23] VITALS: BP 125/75; PULSE 60
--- NOTE | 2024-07-08 12:22 | OB.TRI.HP_ITS ---
HPI - General General Date of Admission: 07/06/24 Date of Service: 07/06/24 Chief Complaint: Right flank pain HPI Narrative see previous note from Dr. Senior [facility] Medical History Depression Kidney stones GERD (gastroesophageal reflux disease) Asthma Urinary tract infection Hidradenitis Home Medications ?Medication ?Instructions ?Recorded ?Last Taken ?Type ondansetron 4 mg disintegrating 4 mg PO Q8H PRN PRN Nausea #10 tabs 02/24/24 07/05/24 Rx tablet aspirin 81 mg capsule 81 mg PO DAILY 07/06/24 07/06/24 18:00 History metoclopramide HCl 5 mg tablet 5 mg PO PRN 07/06/24 07/06/24 09:00 History (Reglan) vit no.95-ferrous 1 tab PO DAILY 07/06/24 07/06/24 18:00 History fumarate 28 mg-folic acid 800 mcg tablet () Allergy/AdvReac Type Severity Reaction Status Date / Time chlorhexidine Allergy Mild Hives Verified 07/06/24 23:54 amoxicillin (From Augmentin) Allergy Other Verified 07/06/24 23:54 bee venom protein (honey bee) Allergy Hives Verified 07/06/24 23:54 clavulanic acid (From Allergy Other Verified 07/06/24 23:54 Augmentin) hydromorphone (From Dilaudid) AdvReac Other Verified 07/06/24 23:54 Surgical History History of wisdom tooth extraction, class II edentulism History of tonsillectomy Social History household members: spouse Smoking Status: Never smoker alcohol intake: never substance use type: does not use caffeine: Yes what type of physical activity do you participate in: walking seatbelt use: always do you feel safe at home: Yes 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
== END 2024-07-07 01:17 | disposition home or self-care (01) ==
LOC: WPOUT 22:59 → WP 22:59
PROVIDERS: Referring Provider Obstetrics & Gynecology; Visit Provider Obstetrics & Gynecology
DX: O99.891 Other specified diseases and conditions complicating pregnancy (principal); R10.9 Unspecified abdominal pain; Z3A.26 26 weeks gestation of pregnancy; Z87.442 Personal history of urinary calculi
CPT/HCPCS: 96374; 96361; 36415; 59025; 59050; 76770; 80053; 81001; 82570; 84156; 85025; 87086; 87088; 99221; J7120; G0378; J2405

== ENCOUNTER 2024-08-21 22:37 | Outpatient (CLI) | payer OTHER, SELFPAY ==
[2024-08-21 22:50] VITALS: BMI 39.0
[2024-08-21 23:23] VITALS: BP 131/85; PULSE 91; RESP 16; TEMP 36.5; O2SAT 99
[2024-08-22 00:03] LABS: Color, Urine Yellow (Yellow); Glucose, Dipstick Normal (Normal); Ketone-Dipstick Negative (Negative); Leukocyte Esterase-Dipstick 500 /ul (Negative); Nitrite-Dipstick Negative (Negative); Occult Blood-Urine 10 /ul (Negative); Protein-Dipstick 15 mg/dl (Negative); Specific Gravity, Urine 1.015 (1.002-1.030); Urine Bilirubin Dipstick Negative (Negative); Urine Clarity Cloudy (Clear); Urine Urobilinogen Normal (Normal); Urine pH 6.5 (5.0 - 8.0)
--- NOTE | 2024-08-22 10:24 | HP_ITS ---
HPI - General General Date of Admission: 08/21/24 Date of Service: 08/21/24 Chief Complaint: lost mucous plug HPI Narrative DIEGO DC, is a 24 F who presents after losing mucous plug. She reports mild contractions that improved during her triage stay. No vb, lof. Good FM PFSH PFSH Medical History Depression Kidney stones GERD (gastroesophageal reflux disease) Asthma Urinary tract infection Hidradenitis Home Medications ?Medication ?Instructions ?Recorded ?Last Taken ?Type ondansetron 4 mg disintegrating 4 mg PO Q8H PRN PRN Nausea #10 tabs 02/24/24 07/22/24 Rx tablet aspirin 81 mg capsule 81 mg PO DAILY 07/06/24 08/19/24 History metoclopramide HCl 5 mg tablet 5 mg PO PRN 07/06/24 08/05/24 History (Reglan) vit no.95-ferrous 1 tab PO DAILY 07/06/24 08/19/24 History fumarate 28 mg-folic acid 800 mcg tablet () famotidine 40 mg tablet (Pepcid) 40 mg PO PRN 08/21/24 Unknown History Allergy/AdvReac Type Severity Reaction Status Date / Time chlorhexidine Allergy Mild Hives Verified 08/21/24 23:08 amoxicillin (From Augmentin) Allergy Other Verified 08/21/24 23:08 bee venom protein (honey bee) Allergy Hives Verified 08/21/24 23:08 clavulanic acid (From Allergy Other Verified 08/21/24 23:08 Augmentin) hydromorphone (From Dilaudid) AdvReac Other Verified 08/21/24 23:08 Surgical History History of wisdom tooth extraction, class II edentulism History of tonsillectomy Social History household members: spouse Smoking Status: Never smoker alcohol intake: never substance use type: does not use caffeine: Yes what type of physical activity do you participate in: walking seatbelt use: always do you feel safe at home: Yes 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 Urine dip collected and urine cx sent given h/o UTI's. No symptoms of a UTI today. RN attempted cervical exam and cervix high, and patient did not tolerate exam due to discomfort. D/c home with return precautions.
--- NOTE | 2024-08-28 15:18 | OB.TRI.HP_ITS ---
HPI - General General Date of Admission: 08/21/24 Date of Service: 08/21/24 Chief Complaint: contractions HPI Narrative DIEGO DC, is a 24 F who presents at 32 week gestation with mild contractions that improved during her triage stay. [facility] Medical History Depression Kidney stones GERD (gastroesophageal reflux disease) Asthma Urinary tract infection Hidradenitis Home Medications ?Medication ?Instructions ?Recorded ?Last Taken ?Type ondansetron 4 mg disintegrating 4 mg PO Q8H PRN PRN Nausea #10 tabs 02/24/24 07/22/24 Rx tablet aspirin 81 mg capsule 81 mg PO DAILY 07/06/24 08/19/24 History metoclopramide HCl 5 mg tablet 5 mg PO PRN 07/06/24 08/05/24 History (Reglan) vit no.95-ferrous 1 tab PO DAILY 07/06/24 08/19/24 History fumarate 28 mg-folic acid 800 mcg tablet () famotidine 40 mg tablet (Pepcid) 40 mg PO PRN 08/21/24 Unknown History Allergy/AdvReac Type Severity Reaction Status Date / Time chlorhexidine Allergy Mild Hives Verified 08/21/24 23:08 amoxicillin (From Augmentin) Allergy Other Verified 08/21/24 23:08 bee venom protein (honey bee) Allergy Hives Verified 08/21/24 23:08 clavulanic acid (From Allergy Other Verified 08/21/24 23:08 Augmentin) hydromorphone (From Dilaudid) AdvReac Other Verified 08/21/24 23:08 Surgical History History of wisdom tooth extraction, class II edentulism History of tonsillectomy Social History household members: spouse Smoking Status: Never smoker alcohol intake: never substance use type: does not use caffeine: Yes what type of physical activity do you participate in: walking seatbelt use: always do you feel safe at home: Yes 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
--- NOTE | 2024-10-02 17:46 | OB.TRI.HP_ITS ---
HPI - General General Date of Admission: 08/21/24 Date of Service: 08/21/24 Chief Complaint: lost mucous plug HPI Narrative DIEGO DC, is a 24 F who presents with lost mucous plug and irregular ctx's [facility] Medical History Depression Kidney stones GERD (gastroesophageal reflux disease) Asthma Urinary tract infection Hidradenitis Home Medications ?Medication ?Instructions ?Recorded ?Last Taken ?Type ondansetron 4 mg disintegrating 4 mg PO Q8H PRN PRN Na usea #10 tabs 02/24/24 07/22/24 Rx tablet aspirin 81 mg capsule 81 mg PO DAILY 07/06/2408/03 00:00 History metoclopramide HCl 5 mg tablet 5 mg PO PRN 07/06/24 History (Reglan) vit no.95-ferrous 1 tab PO DAILY 07/06/24 00:00 History fumarate 28 mg-folic acid 800 mcg tablet () famotidine 40 mg tablet (Pepcid) 40 mg PO PRN pregnanc y 08/21/24 Unknown History insulin NPH isoph U-100 human 100 10 unit subcut QHS 1 10/30/23 08/28/24 History unit/mL (3 mL) subcutaneous pen (Novolin N FlexPen) Allergy/AdvReac Type Severity Reaction Status Date / Time chlorhexidine Allergy Mild Hives Verified 09/21/24 09:17 amoxicillin (From Augmentin) Allergy Other Verified 09/21/24 09:17 bee venom protein (honey bee) Allergy Hives Verified 09/21/24 09:17 clavulanic acid (From Allergy Other Verified 09/21/24 09:17 Augmentin) hydromorphone (From Dilaudid) AdvReac Other Verified 09/21/24 09:17 Surgical History History of wisdom tooth extraction, class II edentulism History of tonsillectomy Social History household members: spouse Smoking Status: Never smoker alcohol intake: never substance use type: does not use caffeine: Yes what type of physical activity do you participate in: walking seatbelt use: always do you feel safe at home: Yes 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
== END 2024-08-22 00:55 | disposition home or self-care (01) ==
LOC: WPOUT 22:40 → WP 22:41
PROVIDERS: Visit Provider Obstetrics & Gynecology
DX: O47.03 False labor before 37 completed weeks of gestation, third trimester (principal); Z3A.32 32 weeks gestation of pregnancy
CPT/HCPCS: 59025; 59050; 81002; 87086; 99221; G0378

== ENCOUNTER → 2024-08-27 | Outpatient (CLI) | payer OTHER, SELFPAY ==
--- NOTE | 2024-08-27 15:29 | US_ITS ---
STUDY: OBSTETRICAL ULTRASOUND - BIOPHYSICAL PROFILE REASON FOR EXAM: Female, 24 years old GESTATIONAL DIABETES LMP: 01/08/2024 PRIOR ULTRASOUND: 08/27/2024 TECHNIQUE: Transabdominal TECHNICAL QUALITY: Adequate. FINDINGS: There is a single intrauterine fetus. The fetus is in a cephalic presentation. There is demonstrated cardiac activity with a heart rate of 157 bpm. There is a normal amniotic fluid volume. The largest amniotic fluid pocket measures 5.1 cm. The amniotic fluid index (LAURA) is 16.7 cm. The placenta is anterior in location and is not low lying. There are Grade 1 placental changes. Age by LMP: 33 weeks, 1 days. SHILA by LMP: 10/14/2024. BIOPHYSICAL PROFILE: Breathing Movements (FBM): 2 Gross Body Movements (GBM): 2 Tone (FT): 2 Amniotic Fluid Volume (AFV): 2 TOTAL SCORE: US/Biophysical Prof W/O Non Stres IMPRESSION: Normal biophysical profile of 04/09. Electronically Signed: Jose Eduardo Soria MD at 8:57 EST ,
--- NOTE | 2024-08-27 15:29 | US_ITS ---
STUDY: SECOND AND THIRD TRIMESTER OBSTETRICAL ULTRASOUND - LIMITED REASON FOR EXAM: Female, 24 years old GROWTH LMP: 01/08/2024 PRIOR ULTRASOUND: None. TECHNIQUE: Transabdominal TECHNICAL QUALITY: Adequate. FINDINGS: There is a single intrauterine fetus. The fetus is in a cephalic presentation. There is demonstrated cardiac activity with a heart rate of 137 bpm. There is a normal amniotic fluid volume. The largest amniotic fluid pocket measures 4.8 cm. The amniotic fluid index (LAURA) is 11.3 cm. The placenta is anterior in location and is not low lying. There are Grade 1 placental changes. The cervix measures 3.2 cm in length. BIOMETRY: BPD: 7.6 cm: 30 weeks, 3 days HC: 31.0 cm: 34 weeks, 4 days AC: 27.5 cm: 31 weeks, 4 days FL: 5.8 cm: 30 weeks, 2 days Age by LMP: 33 weeks, 1 days. SHILA by LMP: 10/14/2024. age by prior US: 31 weeks, days. SHILA by prior US: . age by current US: 31 weeks, 5 days. SHILA by current US: 10/24/2024. Estimated weight: 1693 grams, +/- 254 grams, 4 percentile. Gender: US/OB Limited With Biometrics IMPRESSION: Live intrauterine of 31 weeks 5 days as described above. age is discordant for age by IMP 33 weeks 1 day suggestive of incorrect dates or intrauterine growth retardation. Electronically Signed: Jose Eduardo Soria MD at 9:01 EST ,
== END | disposition home or self-care (01) ==
LOC: US 15:25
PROVIDERS: Referring Provider Advanced Practice Midwife; Visit Provider Advanced Practice Midwife
DX: O24.410 Gestational diabetes mellitus in pregnancy, diet controlled (principal); Z3A.33 33 weeks gestation of pregnancy
CPT/HCPCS: 76816; 76819

== ENCOUNTER 2024-08-29 17:35 | Outpatient (CLI) | payer OTHER, SELFPAY ==
[2024-08-29 17:46] VITALS: BMI 38.9
[2024-08-29 17:47] VITALS: BP 126/80; PULSE 109; RESP 16; TEMP 36.5; O2SAT 98
--- NOTE | 2024-08-29 18:32 | OB.TRI.NOTE ---
HPI - General General Date of Admission: 08/29/24 Date of Service: 08/29/24 Chief Complaint: decreased movement HPI Narrative DIEGO DC, is a 24 F who presents decreased movement. Worried because her blood sugar was also high today. Did have sauerkraut balls with lunch. MOvement improved while on the NST. NST was reactive and patient reassured. Maternal Data Information Final SHILA: 10/14/24 Gestational age: 33+4 PFSH PFSH Medical History Depression Kidney stones GERD (gastroesophageal reflux disease) Asthma Urinary tract infection Hidradenitis Home Medications ?Medication ?Instructions ?Recorded ?Last Taken ?Type ondansetron 4 mg disintegrating 4 mg PO Q8H PRN PRN Nausea #10 tabs 02/24/24 07/22/24 Rx tablet aspirin 81 mg capsule 81 mg PO DAILY 07/06/24 08/29/24 00:00 History metoclopramide HCl 5 mg tablet 5 mg PO PRN 07/06/24 08/05/24 History (Reglan) vit no.95-ferrous 1 tab PO DAILY 07/06/24 08/29/24 00:00 History fumarate 28 mg-folic acid 800 mcg tablet () famotidine 40 mg tablet (Pepcid) 40 mg PO PRN 08/21/24 Unknown History insulin NPH isoph U-100 human 100 10 unit subcut QHS 08/29/24 08/28/24 History unit/mL (3 mL) subcutaneous pen (Novolin N FlexPen) Allergy/AdvReac Type Severity Reaction Status Date / Time chlorhexidine Allergy Mild Hives Verified 08/29/24 17:46 amoxicillin (From Augmentin) Allergy Other Verified 08/29/24 17:46 bee venom protein (honey bee) Allergy Hives Verified 08/29/24 17:46 clavulanic acid (From Allergy Other Verified 08/29/24 17:46 Augmentin) hydromorphone (From Dilaudid) AdvReac Other Verified 08/29/24 17:46 Surgical History History of wisdom tooth extraction, class II edentulism History of tonsillectomy Social History household members: spouse Smoking Status: Never smoker alcohol intake: never substance use type: does not use caffeine: Yes what type of physical activity do you participate in: walking seatbelt use: always do you feel safe at home: Yes 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 [employer] History 1 Elective abortions Hx Para 0 Spontaneous abortions Hx # Term Pregnancies Ectopic pregnancies Hx # Pregnancies Multiple births # of living children ROS Constitutional Constitutional: Denies fatigue, fever(s) or malaise Eyes Eyes: Denies change in vision ENT HEENT: Denies dizziness or headache(s) Cardiovascular Cardiovascular: Denies chest pain, dyspnea or lightheadedness Respiratory/Chest Respiratory/Chest: Denies cough or dyspnea Gastrointestinal Gastrointestinal: Denies change in bowel habits Genitourinary Genitourinary: Denies burning urination or genital lesions Integumentary Integumentary: Denies rash Neurologic Neurologic: Denies confusion, dizziness, headache(s), numbness or weakness Physical Exam Const alert and no apparent distress General Appearance: cooperative HEENT normocephalic Resp normal respiratory effort GI GI Narrative: gravid, nontender, appropriate for gestational age Psych activity/motor behavior normal NST FHR Rate Baby A Baseline: 130 Variability:: Moderate Accelerations:: 15 x 15 Decelerations:: None NST Reactive:: Yes FHR Category:: Category I Uterine Activity:: none Assessment & Plan (1) Decreased movement: QUALIFIERS: Fetus number: single or unspecified fetus Trimester: third trimester Qualified Code(s): O36.8130 - Decreased movements, third trimester, not applicable or unspecified (2) 33 weeks gestation of : PLAN: Plan Discharge home with precautions GDM patient info given
[2024-08-29 19:09] LABS: Bedside Glucose 87 mg/dL (74-106)
== END 2024-08-29 19:10 | disposition home or self-care (01) ==
LOC: WPOUT 17:44 → WP 17:45
PROVIDERS: Referring Provider Obstetrics & Gynecology; Visit Provider Obstetrics & Gynecology
DX: O36.8130 Decreased fetal movements, third trimester, not applicable or unspecified (principal); O99.613 Diseases of the digestive system complicating pregnancy, third trimester; K21.9 Gastro-esophageal reflux disease without esophagitis; Z3A.33 33 weeks gestation of pregnancy; Z79.899 Other long term (current) drug therapy
CPT/HCPCS: 59025; 59050; 82962; 99221; G0378

== ENCOUNTER 2024-09-21 08:02 | Outpatient (CLI) | payer OTHER, SELFPAY ==
[2024-09-21] VITALS (8 sets, daily range): BP systolic 119–133; BP diastolic 72–83; PULSE 88–97; RESP 14; TEMP 36.7; O2SAT 100; BMI 38.0
--- NOTE | 2024-09-25 13:56 | OB.TRI.HP_ITS ---
HPI - General General Date of Admission: 09/21/24 Date of Service: 09/21/24 Chief Complaint: ctx's HPI Narrative DIEGO DC, is a 24 F who presents with irregular ctx's. No vb, lof. Good FM PFSH PFSH Medical History Depression Kidney stones GERD (gastroesophageal reflux disease) Asthma Urinary tract infection Hidradenitis Home Medications ?Medication ?Instructions ?Recorded ?Last Taken ?Type ondansetron 4 mg disintegrating 4 mg PO Q8H PRN PRN Nausea #10 tabs 02/24/24 07/22/24 Rx tablet aspirin 81 mg capsule 81 mg PO DAILY 07/06/24 08/29/24 00:00 History metoclopramide HCl 5 mg tablet 5 mg PO PRN 07/06/24 08/05/24 History (Reglan) vit no.95-ferrous 1 tab PO DAILY 07/06/24 08/29/24 00:00 History fumarate 28 mg-folic acid 800 mcg tablet () famotidine 40 mg tablet (Pepcid) 40 mg PO PRN 08/21/24 Unknown History insulin NPH isoph U-100 human 100 10 unit subcut QHS 08/29/24 08/28/24 History unit/mL (3 mL) subcutaneous pen (Novolin N FlexPen) Allergy/AdvReac Type Severity Reaction Status Date / Time chlorhexidine Allergy Mild Hives Verified 09/21/24 09:17 amoxicillin (From Augmentin) Allergy Other Verified 09/21/24 09:17 bee venom protein (honey bee) Allergy Hives Verified 09/21/24 09:17 clavulanic acid (From Allergy Other Verified 09/21/24 09:17 Augmentin) hydromorphone (From Dilaudid) AdvReac Other Verified 09/21/24 09:17 Surgical History History of wisdom tooth extraction, class II edentulism History of tonsillectomy Social History household members: spouse Smoking Status: Never smoker alcohol intake: never substance use type: does not use caffeine: Yes what type of physical activity do you participate in: walking seatbelt use: always do you feel safe at home: Yes 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 cervical exam per RN. not in labor. d/c home with follow up in office.
== END 2024-09-21 10:24 | disposition home or self-care (01) ==
LOC: WPOUT 08:06 → WP 08:06
PROVIDERS: Referring Provider Obstetrics & Gynecology; Visit Provider Obstetrics & Gynecology
DX: O47.1 False labor at or after 37 completed weeks of gestation (principal); Z3A.36 36 weeks gestation of pregnancy; O99.613 Diseases of the digestive system complicating pregnancy, third trimester; K21.9 Gastro-esophageal reflux disease without esophagitis; Z79.899 Other long term (current) drug therapy
CPT/HCPCS: 59025; 59050; 99221; G0378

== ENCOUNTER 2024-10-31 10:27 | Emergency (ER) | payer OTHER, SELFPAY ==
[2024-10-31 10:29] VITALS: BP 136/110; PULSE 70; RESP 18; TEMP 36.6; O2SAT 100; BMI 49.4
--- NOTE | 2024-10-31 10:33 | EKG12_ITS ---
Test Reason : POST DELIVERY Blood Pressure : */* mmHG Vent. Rate : 72 BPM Atrial Rate : 72 BPM P-R Int : 162 ms QRS Dur : 80 ms QT Int : 386 ms P-R-T Axes : 34 -11 0 degrees QTcB Int : 422 ms Normal sinus rhythm Minimal voltage criteria for LVH, may be normal variant ( R in aVL ) Borderline ECG Confirmed by Silvio Nina [id number]), slot editor VIKKI LACY ([id number]) on 11/02/2024 6:59:59 AM Referred By: Confirmed By: Slivio Nina
[2024-10-31 11:06] VITALS: BP 141/97; PULSE 75; RESP 18; O2SAT 98
[2024-10-31 11:09] VITALS: O2SAT 99
--- NOTE | 2024-10-31 11:30 | EX.ED.DYSGE1 ---
HPI History of Present Illness Chief Complaint: Palpitations Narrative Narrative: Patient is a 24-year-old female with past medical history of anxiety, depression, GERD, asthma who presents to the emergency department with complaint of low heart rate. Patient states that she is currently 4 weeks and developed preeclampsia with her child. She was originally on 60 mg of Procardia however states that her blood pressure been running normal for a significant mount time therefore her physician cut her dose to 30 mg daily. She states that today noted that her heart rate was noted to be 52 after taking her Procardia and noted that she got on [employer] a heart rate of 52 and it advised her to go to the hospital therefore she came here for the valuation management. Patient states that during this time she was asymptomatic and felt her normal self. She states that she has very bad anxiety. She notes that at home and family was at bedside also noticed that her blood pressure has been running normal despite it being elevated here they state that this is all secondary to her anxiety and nerves. [facility] Medical History Depression Kidney stones GERD (gastroesophageal reflux disease) Asthma Urinary tract infection Hidradenitis Home Medications ?Medication ?Instructions ?Recorded ?Last Taken ?Type ondansetron 4 mg disintegrating 4 mg PO Q8H PRN PRN Nausea #10 tabs 02/24/24 07/22/24 Rx tablet aspirin 81 mg capsule 81 mg PO DAILY 07/06/24 08/29/24 00:00 History metoclopramide HCl 5 mg tablet 5 mg PO PRN 07/06/24 08/05/24 History (Reglan) vit no.95-ferrous 1 tab PO DAILY 07/06/24 08/29/24 00:00 History fumarate 28 mg-folic acid 800 mcg tablet () famotidine 40 mg tablet (Pepcid) 40 mg PO PRN 08/21/24 Unknown History insulin NPH isoph U-100 human 100 10 unit subcut QHS 08/29/24 08/28/24 History unit/mL (3 mL) subcutaneous pen (Novolin N FlexPen) Allergy/AdvReac Type Severity Reaction Status Date / Time chlorhexidine Allergy Mild Hives Verified 10/31/24 10:28 amoxicillin (From Augmentin) Allergy Other Verified 10/31/24 10:28 bee venom protein (honey bee) Allergy Hives Verified 10/31/24 10:28 clavulanic acid (From Allergy Other Verified 10/31/24 10:28 Augmentin) hydromorphone (From Dilaudid) AdvReac Other Verified 10/31/24 10:28 Surgical History History of wisdom tooth extraction, class II edentulism History of tonsillectomy Social History household members: spouse Smoking Status: Never smoker alcohol intake: never substance use type: does not use caffeine: Yes what type of physical activity do you participate in: walking seatbelt use: always do you feel safe at home: Yes 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 [employer] ROS ED ROS Narrative Constitutional: Denies headache, lightness, dizziness, fevers, chills Eyes: Denies change in vision double vision denies spots before her eyes Cardiovascular: Denies chest pain or palpitations Respiratory: Denies coughing wheezing shortness of breath Abdomen: Denies abdominal pain nausea vomit diarrhea : Denies any urinary symptoms Neurological: Denies numbness, weakness, tingling Musculoskeletal: Denies back pain Skin: Denies rashes or lesions EXAM Physical Exam Narrative Exam Narrative: General: Patient is lying in bed rest comfortably did not appear to be in acute distress Head: Atraumatic, normocephalic Eyes: PERRL bilaterally, EOMI bilaterally, no conjunctival injection noted Neck: Soft, supple, trach midline Cardiovascular: Regular rate and rhythm no murmurs gallops rubs noted Respiratory: Clear to auscultation bilaterally no rales rhonchi or wheezes noted patient Abdomen: Soft, nondistended, no tenderness palpation no tenderness palpation the right upper quadrant no rebound or guarding on exam Extremities: +5/5 strength noted in the bilateral upper and lower extremities, radial pulses +2/4 in the bilateral extremities, no pedal edema on exam Neurological: Patient follow commands knew that she was at [facility] year is 2024. NIH of 0 GCS 15 Skin: Warm, dry, intact no rashes or lesions noted Const Vital Signs: 10/31/24 10:29 03/01/25 11:06 Temperature 98 F Temperature Source Temporal Pulse Rate 70 75 Respiratory Rate 18 18 Blood Pressure 136/110 H 141/97 H Blood Pressure Mean 118 111 Pulse Ox 100 98 Oxygen Delivery Method Room Air Room Air MDM MDM MDM Narrative Medical decision making narrative: Patient is a 24-year-old female who presented to the emergency department chief complaint of low heart rate. On the differential diagnose includes but not limited to asymptomatic bradycardia, first-degree heart block, hypertension in the setting of preeclampsia. Once again the patient is completely asymptomatic and states that her blood pressure has been running completely normal at home to the point where they reduced her Procardia from 60 mg to 30 mg states that she is anxious and that is why her blood pressure is elevated here. Patient will be ambulated here make sure that she tolerates this well. Patient heart rate remained normal in the emergency department. I advised them that with her heart rate can be lower than 50 as long as she is asymptomatic. She was advised that if she does develop symptoms such as passing out or near passing out, lightheadedness, not feeling well she needs to come to return to the ER at that point time. Once again her heart rate was low approximately 30 to 40 minutes after taking the Procardia and here in the emergency department is normal. Discharge Plan Triage Chief Complaint: Palpitations ED Provider: Fredrick Juárez Dx/Rx/DC Orders Clinical Impression: Bradycardia Prescriptions: No Action ondansetron 4 mg tablet,disintegrating 4 mg PO Q8H PRN PRN (Reason: Nausea) Qty: 10 0RF aspirin 81 mg capsule 81 mg PO DAILY PNV cmb#95-ferrous fumarate-FA [] 28 mg iron- 800 mcg tablet 1 tab PO DAILY metoclopramide HCl [Reglan] 5 mg tablet 5 mg PO PRN famotidine [Pepcid] 40 mg tablet 40 mg PO PRN Novolin N FlexPen 100 unit/mL (3 mL) insulin pen 10 unit subcut QHS Primary Care Provider: Jocelyn Davis Referrals: Jocelyn Davis, [Primary Care Provider] - Activity Restrictions/Additional Instructions: Keep close eye on your blood pressure as you have been. Return with spots before your eyes, severe headaches, pain in your abdomen on the right upper side below your rib cage or any other concerns. Return for almost passing out with a low heart rate, lightheadedness or any other concerns. As we discussed here it is not abnormal to have a low heart rate while on this medication but what matters most is your symptoms associated with your heart rate. Ensure you are drinking plenty of water. Print Language: Italian Disposition Disposition: Home, Self Care
[2024-10-31 12:23] VITALS: BP 120/78; PULSE 74; RESP 18; TEMP 36.6; O2SAT 99
== END 2024-10-31 12:26 | disposition home or self-care (01) ==
LOC: ED 12:13
PROVIDERS: Emergency Provider Emergency Medicine; Visit Provider Emergency Medicine
DX: R00.1 Bradycardia, unspecified (principal); K21.9 Gastro-esophageal reflux disease without esophagitis; Z79.899 Other long term (current) drug therapy
CPT/HCPCS: 93005; 99282